=== PATIENT | male | born 1950 | race Caucasian/White ===

== ENCOUNTER 2020-04-21 08:20 | Outpatient (CLI) | payer MEDICARE, SELFPAY ==
[2020-04-21 08:49] LABS: Eosinophils Absolute Auto 0.2 K/mm3 (0-0.3); Eosinophils Percent Auto 5.7 % (0-4.4); Hemoglobin 13.1 g/dL (14.0-18.0); Immature Granulocyte Absolute 0.01 K/mm3 (0.00-0.031); Immature Granulocyte Percent A 0.2 % (0-0.5); Lymphocytes Percent Auto 39.6 % (18.3-44.2); Mean Corpuscular HGB Conc 33.6 g/dl (32-36); Mean Corpuscular Hemoglobin 29.9 pg (26-34); Mean Platelet Volume 9.1 fl (7.4-10.4); Monocytes Absolute Auto 0.5 K/mm3 (0.1-0.6); Monocytes Percent Auto 11.4 % (2.6-8.5); Neutrophils Absolute Auto 1.7 K/mm3 (1.3-6.7); Neutrophils Percent Auto 42.1 % (45.5-73.1); Platelet Count Result 180 k/mm3 (150-375); Red Blood Count 4.38 M/mm3 (4.6-6.20); Red Cell Distribution Width 12.9 % (11.5-14.5)
[2020-04-21 12:30] LABS: Alanine Aminotransferase 22 U/L (4-50); Albumin Level 4.8 g/dL (3.5-5.1); Alkaline Phosphatase 50 U/L (38-126); Anion Gap 16.7 mmol/L (7-16); Aspartate Amino Transferase 26 U/L (17-59); Bilirubin,Total 0.3 mg/dL (0.2-1.3); Blood Urea Nitrogen 24 mg/dL (9-20); Calcium 9.9 mg/dL (8.4-10.2); Carbon Dioxide 24 mmol/L (22-30); Chloride 102 mmol/L (98-107); Estimated Glomerular Filt Rate 60; Glucose 193 mg/dL (75-110); Potassium 4.7 mmol/L (3.4-5.0); Sodium 138 mmol/L (137-145)
[2020-04-21 12:37] LABS: Immunoglobulin A 156 mg/dL (70-400); Immunoglobulin G 1556 mg/dL (700-1600); Immunoglobulin M 56 mg/dL (40-230)
[2020-04-25 23:28] LABS: Kappa\\Lambda Light Chains 10.96 (0.26-1.65); Lambda Light Chain 8.5 mg/L (5.7-26.3)
[2020-04-26 02:17] LABS: Albumin 4.1 g/dL (3.8-4.8); Alpha 1 Globulin 0.3 g/dL (0.2-0.3); Alpha 2 Globulin 0.7 g/dL (0.5-0.9); Beta 1 Globulin 0.8 g/dL (0.4-0.6); Gamma Globulin 0.6 g/dL (0.8-1.7); Protein, Total 7.2 g/dL (6.1-8.1)
== END 2020-04-21 08:21 | disposition home or self-care (01) ==
PROVIDERS: PCP Internal Medicine; Visit Provider Internal Medicine Hematology & Oncology
DX: D72.9 Disorder of white blood cells, unspecified (principal)
CPT/HCPCS: 36415; 80053; 82784; 83883; 84155; 84165; 85025; 86334

== ENCOUNTER 2021-04-16 08:57 | Outpatient (CLI) | payer MEDICARE, SELFPAY ==
[2021-04-16 09:19] LABS: Basophils Percent Auto 0.7 % (0.2-1.2); Eosinophils Absolute Auto 0.3 K/mm3 (0-0.3); Eosinophils Percent Auto 7.2 % (0-4.4); Hematocrit 40.2 % (42.0-52.0); Hemoglobin 13.3 g/dL (14.0-18.0); Lymphocytes Absolute Auto 1.57 K/mm3 (0.9-3.2); Lymphocytes Percent Auto 36.7 % (18.3-44.2); Mean Corpuscular HGB Conc 33.1 g/dl (32-36); Mean Corpuscular Hemoglobin 29.1 pg (26-34); Mean Platelet Volume 9.1 fl (7.4-10.4); Monocytes Absolute Auto 0.5 K/mm3 (0.1-0.6); Neutrophils Absolute Auto 1.9 K/mm3 (1.3-6.7); Neutrophils Percent Auto 44.4 % (45.5-73.1); Platelet Count Result 206 k/mm3 (150-375); Red Blood Count 4.57 M/mm3 (4.6-6.20); Red Cell Distribution Width 12.9 % (11.5-14.5); White Blood Count 4.3 K/mm3 (4.5-10.0)
[2021-04-16 10:54] LABS: Alanine Aminotransferase 18 U/L (4-50); Albumin Level 4.7 g/dL (3.5-5.1); Alkaline Phosphatase 53 U/L (38-126); Anion Gap 10 mmol/L (8-16); Aspartate Amino Transferase 26 U/L (17-59); Bilirubin,Total 0.5 mg/dL (0.2-1.3); Blood Urea Nitrogen 21 mg/dL (9-20); Carbon Dioxide 25 mmol/L (22-30); Chloride 104 mmol/L (98-107); Estimated Glomerular Filt Rate 60; Glucose 142 mg/dL (65-110); Potassium 4.6 mmol/L (3.4-5.0); Sodium 139 mmol/L (137-145)
[2021-04-16 11:30] LABS: Immunoglobulin A 146 mg/dL (70-400); Immunoglobulin G 1573 mg/dL (700-1600); Immunoglobulin M 47 mg/dL (40-230)
[2021-04-19 23:03] LABS: Lambda Light Chain 8.4 mg/L (5.7-26.3)
[2021-04-24 03:21] LABS: Albumin 4.2 g/dL (3.8-4.8); Alpha 1 Globulin 0.3 g/dL (0.2-0.3); Alpha 2 Globulin 1.1 g/dL (0.5-0.9); Beta 1 Globulin 1.4 g/dL (0.4-0.6); Gamma Globulin 0.4 g/dL (0.8-1.7); Protein, Total 7.6 g/dL (6.1-8.1)
== END 2021-04-16 08:58 | disposition home or self-care (01) ==
LOC: ANHLAB 09:04
PROVIDERS: PCP Internal Medicine; Visit Provider Internal Medicine Hematology & Oncology
DX: D47.2 Monoclonal gammopathy (principal)
CPT/HCPCS: 36415; 80053; 82784; 83883; 84155; 84165; 85025; 86334

== ENCOUNTER 2021-12-09 09:25 | Emergency (ER) | payer MEDICARE, SELFPAY ==
[2021-12-09] VITALS (15 sets, daily range): BP systolic 115–137; BP diastolic 63–70; PULSE 59–77; RESP 13–20; TEMP 36.8; O2SAT 96–99
--- NOTE | ~2021-12-09 | XR_ITS ---
XR chest 1V portable 12/09/2021 10:01 Indication: Fever. Procedure: AP portable chest Comparison: Comparison to multiple prior studies sequentially, with oldest reviewed study dated 06/27. Findings: Heart size normal. No focal air space disease, pulmonary edema, pleural effusion or suspect ed pneumothorax. Impression: 1: No acute cardiopulmonary disease. Reviewed, dictated and finalized at location B. Impression: 1: No acute cardiopulmonary disease.
--- NOTE | 2021-12-09 09:47 | ED.FEVER ---
HPI - Fever General Chief Complaint: Fever Stated Complaint: Sepsis? Time Seen by Provider: 12/09/21 09:36 Source: patient Mode of arrival: ambulatory Limitations: no limitations History of Present Illness HPI Narrative: This is a 71 year old male that presents to the ER for fevers present over the last couple of days. Associated with achy low back pain and cloudy urine. Reports he self caths and has history of frequent urinary tract infections. He has had a right nephrectomy for history of renal cell carcinoma. Does report he had some diarrhea today. He is COVID and influenza vaccinated. Denies cough, congestion, sore throat, vomiting, or hematuria. Related Data Allergies Allergy/AdvReac Type Severity Reaction Status Date / Time aspirin Allergy Mild HIVES Verified 12/09/21 09:35 Review of Systems Review of Systems: CONSTITUTIONAL: Reports fever, chills ENT: Denies rhinorrhea, congestion, sore throat RESPIRATORY: Denies cough or dyspnea. GASTROINTESTINAL: Reports diarrhea. Denies abdominal pain, nausea, vomiting GENITOURINARY: Denies hematuria. SKIN: Denies rash MUSCULOSKELETAL: Reports myalgia. All systems reviewed & are unremarkable except as noted in HPI and below PMFSH Past Medical History Medical History (Updated 12/09/21 @ 11:31 by Sarah Rey PA-C) History of diabetes mellitus History of hyperlipidemia History of hypertension History of renal cell carcinoma Surgical History Surgical History (Updated 12/09/21 @ 09:51 by Sarah Rey PA-C) History of right nephrectomy Social History Social History (Updated 12/09/21 @ 09:51 by Sarah Rey PA-C) Smoking status: Never smoker Exam Narrative: GENERAL: Well-appearing, well-nourished, and in no acute distress. HEAD: Normocephalic, atraumatic. EYES: EOMI. ENT: Nares clear, no rhinorrhea or epistaxis. Mucous membranes moist. Oropharynx without tonsillar hypertrophy exudate or other lesions. CHEST: Clear to auscultation. No respiratory distress. No wheezes rales or rhonchi HEART: Regular rate and rhythm. No murmur heard. Normal peripheral pulses. ABDOMEN: Soft, nontender, nondistended, normal active bowel sounds. No CVA tenderness EXTREMITIES: Normal range of motion. No edema. SKIN: Warm, dry, no rash. NEURO: No focal deficits. Alert and oriented x3. PSYCH: Normal mood and affect Course Consultations Consultation #1: Spoke with the [place] with urology about patient and work-up. Patient will be given dose of Rocephin in the ED and sent home with oral antibiotics. Date: 12/09/21 Time: 11:31 Vital Signs Vital signs: Vital Signs Temperature 98.3 F 12/09/21 09:31 Pulse Rate 77 12/09/21 09:31 Respiratory Rate 19 12/09/21 09:31 Blood Pressure 137/64 12/09/21 09:31 Pulse Oximetry 99 12/09/21 09:31 Temperature 98.3 F 12/09/21 09:31 Pulse Rate 62 12/09/21 11:21 Respiratory Rate 18 12/09/21 11:21 Blood Pressure 117/64 12/09/21 11:21 Pulse Oximetry 98 12/09/21 11:21 MDM - Fever MDM Narrative Medical decision making narrative: Patient presents to the ER for fever and low back pain. History of frequent urinary tract infections. He self caths due to history of neurogenic bladder. He is afebrile in the ED and nontoxic-appearing. His vitals are stable. CBC with leukocytosis to 14.3. Also shows normocytic anemia with hemoglobin of 13.3. Metabolic panel without concerning findings. His lactic is not elevated. UA with evidence of infection. This will be sent for culture. Chest x-ray without acute cardiopulmonary abnormality. Spoke with the [place] with urology about patient and work-up. Patient will be given dose of Rocephin in the ED and sent home with oral antibiotics. Patient is stable and felt appropriate for further outpatient evaluation. He was given warnings to return to the ER Lab Data Attestation: I reviewed the patient's lab results. Result diagrams: 12/09/21 09:38
[2021-12-09 09:51] LABS: Basophils Absolute Auto 0.1 K/mm3 (0.0-0.1); Basophils Percent Auto 0.4 % (0.2-1.2); Eosinophils Percent Auto 0.1 % (0-4.4); Hematocrit 39.7 % (42.0-52.0); Hemoglobin 13.3 g/dL (14.0-18.0); Immature Granulocyte Absolute 0.08 K/mm3 (0.00-0.031); Immature Granulocyte Percent A 0.6 % (0-0.5); Lymphocytes Absolute Auto 1.72 K/mm3 (0.9-3.2); Mean Corpuscular HGB Conc 33.5 g/dl (32-36); Mean Corpuscular Hemoglobin 30.4 pg (26-34); Mean Corpuscular Volume 90.8 fl (80-100); Monocytes Absolute Auto 1.5 K/mm3 (0.1-0.6); Monocytes Percent Auto 10.6 % (2.6-8.5); Neutrophils Absolute Auto 10.9 K/mm3 (1.3-6.7); Neutrophils Percent Auto 76.3 % (45.5-73.1); Platelet Count Result 170 k/mm3 (150-375); Red Blood Count 4.37 M/mm3 (4.6-6.20); Red Cell Distribution Width 13.2 % (11.5-14.5); White Blood Count 14.3 K/mm3 (4.5-10.0)
[2021-12-09] MEDS: SODIUM CHLORIDE 0.9% IV 500 ML 999 ML IV CONT (09:52)
[2021-12-09 09:58] LABS: Alanine Aminotransferase 17 U/L (4-50); Albumin Level 4.5 g/dL (3.5-5.1); Alkaline Phosphatase 61 U/L (38-126); Anion Gap 9 mmol/L (8-16); Aspartate Amino Transferase 24 U/L (17-59); Blood Urea Nitrogen 18 mg/dL (9-20); Calcium 9.1 mg/dL (8.4-10.2); Carbon Dioxide 24 mmol/L (22-30); Chloride 104 mmol/L (98-107); Estimated CRCL calculation 56 ml/min; Estimated Glomerular Filt Rate 55; Glucose 249 mg/dL (65-110); Potassium 3.8 mmol/L (3.4-5.0); Sodium 137 mmol/L (137-145)
[2021-12-09 10:05] LABS: INR 1.1; Prothrombin Time 14.1 Seconds (11.1-14.7)
[2021-12-09 10:06] LABS: Partial Thromboplastin Time 29.7 SECONDS (22.3-36.8)
[2021-12-09 10:16] LABS: CRP 14.1 mg/dL (<1.0); Lipase 78 U/L (23-300)
[2021-12-09 10:25] LABS: Add Urine Microscopic? YES; Appearance Urine Cloudy (Clear); Bilirubin Urine Negative (Negative); Blood Urine 2+ (Negative); Color Urine Yellow (Yellow); Glucose Urine UA Negative (Negative); Ketones Urine Negative (Negative); Leukocyte Esterase Ur 3+ LEU/UL (Negative); Mucus Urine Rare /lpf; Nitrate Urine Negative (Negative); Protein Urine 2+ mg/dL (Negative); Specific Grav Ur 1.014 (1.001-1.035); Squamous Epithelial Cell Urine Occasional /hpf (Few); Urobilinogen Urine Negative mg/dL (<2.0); WBC Clumps Urine Present /HPF; WBC Urine >75 /hpf
[2021-12-09 10:25] LABS: Lactic Acid Reflex 1.5 mmol/L (0.7-2.1)
--- NOTE | 2021-12-09 11:09 | PC.NURSE ---
care assumed of pt at this time. Pt laying on bed, no distress noted. IVF infusing.
--- NOTE | 2021-12-09 11:09 | PC.NURSE ---
Patient report given to REYNA Major. All questions answered and care of patient transferred.
== END 2021-12-09 11:50 | disposition home or self-care (01) ==
PROVIDERS: Physician Assistant; Emergency Provider Emergency Medicine; PCP Internal Medicine
DX: N30.00 Acute cystitis without hematuria (principal); E11.9 Type 2 diabetes mellitus without complications; E78.5 Hyperlipidemia, unspecified; I10 Essential (primary) hypertension; N31.9 Neuromuscular dysfunction of bladder, unspecified; Z85.528 Personal history of other malignant neoplasm of kidney; Z90.5 Acquired absence of kidney
CPT/HCPCS: 36415; 51701; 71045; 80053; 81001; 83605; 83690; 85025; 85610; 85730; 86140; 87040; 87086; 87147; 87181; 87186; 96361; 96365; 99284; J0696; J7040

== ENCOUNTER 2022-04-13 08:32 | Outpatient (CLI) | payer MEDICARE, SELFPAY ==
[2022-04-13 08:58] LABS: Basophils Percent Auto 0.5 % (0.2-1.2); Eosinophils Absolute Auto 0.2 K/mm3 (0-0.3); Eosinophils Percent Auto 5.4 % (0-4.4); Hematocrit 39.6 % (42.0-52.0); Lymphocytes Absolute Auto 1.48 K/mm3 (0.9-3.2); Lymphocytes Percent Auto 36.2 % (18.3-44.2); Mean Corpuscular HGB Conc 32.8 g/dl (32-36); Mean Corpuscular Hemoglobin 29.6 pg (26-34); Mean Corpuscular Volume 90.2 fl (80-100); Mean Platelet Volume 9.9 fl (7.4-10.4); Monocytes Absolute Auto 0.5 K/mm3 (0.1-0.6); Monocytes Percent Auto 12.5 % (2.6-8.5); Neutrophils Absolute Auto 1.9 K/mm3 (1.3-6.7); Neutrophils Percent Auto 45.4 % (45.5-73.1); Platelet Count Result 169 k/mm3 (150-375); Red Blood Count 4.39 M/mm3 (4.6-6.20); Red Cell Distribution Width 13.2 % (11.5-14.5); White Blood Count 4.1 K/mm3 (4.5-10.0)
[2022-04-13 13:23] LABS: Alanine Aminotransferase 24 U/L (6-50); Albumin Level 4.5 g/dL (3.5-5.1); Alkaline Phosphatase 53 U/L (38-126); Anion Gap 10 mmol/L (8-16); Aspartate Amino Transferase 26 U/L (17-59); Bilirubin,Total 0.4 mg/dL (0.2-1.3); Blood Urea Nitrogen 26 mg/dL (9-20); Calcium 9.7 mg/dL (8.4-10.2); Carbon Dioxide 25 mmol/L (22-30); Chloride 102 mmol/L (98-107); Estimated Glomerular Filt Rate 60; Glucose 243 mg/dL (65-110); Potassium 4.3 mmol/L (3.4-5.0); Sodium 137 mmol/L (137-145)
[2022-04-13 13:30] LABS: Immunoglobulin A 114 mg/dL (70-400); Immunoglobulin G 1504 mg/dL (700-1600); Immunoglobulin M 47 mg/dL (40-230)
[2022-04-17 08:01] LABS: Kappa\\Lambda Light Chains 9.79 (0.26-1.65); Lambda Light Chain 9.9 mg/L (5.7-26.3)
[2022-04-20 18:44] LABS: Abnormal Protein Band 1 1.2 g/dL; Albumin 4.4 g/dL (3.8-4.8); Alpha 1 Globulin 0.3 g/dL (0.2-0.3); Alpha 2 Globulin 0.9 g/dL (0.5-0.9); Beta 1 Globulin 1.3 g/dL (0.4-0.6); Gamma Globulin 0.7 g/dL (0.8-1.7); Protein, Total 7.5 g/dL (6.1-8.1)
== END 2022-04-13 08:33 | disposition home or self-care (01) ==
PROVIDERS: PCP Internal Medicine; Visit Provider Internal Medicine Hematology & Oncology
DX: D47.2 Monoclonal gammopathy (principal)
CPT/HCPCS: 36415; 80053; 82784; 83883; 84155; 84165; 85025

== ENCOUNTER 2022-05-18 00:03 | Day surgery (SDC) | payer MEDICARE, SELFPAY ==
[2022-05-04 13:06] VITALS: BMI 24.6
--- NOTE | 2022-05-17 17:24 | PM.HPGS ---
History of Present Illness History of Present Illness Consent: Risks, benefits, and alternatives have been discussed and questions answered. Patient agrees to proceed with procedure. Chief complaint: hx colon polyps, family hx of colon ca Narrative: Calin Lerma is a 72 year old male Referred for colon cancer screening. He has a family history of colon cancer. He himself has had polyps removed on 3 separate occasions. Review of Systems Review of Systems: All systems reviewed & are unremarkable except as noted in HPI and below PMFSH Past Medical History Medical History History of diabetes mellitus History of hyperlipidemia History of hypertension History of renal cell carcinoma Surgical History Surgical History History of right nephrectomy Social History Social History Smoking packs per day: 1 Smoking cigarettes per day: 20.0 Years smoked: 30 Smoking pack-years: 30.00 Smoking status: Former smoker Tobacco type: cigarettes Alcohol intake: never Substance use type: does not use Living arrangements: with family Spiritual care concerns: No Meds Home Medications and Allergies Home Medications Medication Instructions Recorded Confirmed Type amlodipine 5 mg tablet 5 mg PO DAILY 05/04/22 05/18/22 History atorvastatin 40 mg tablet 40 mg PO DAILY 05/04/22 05/18/22 History cephalexin 250 mg capsule 250 mg PO DAILY 05/04/22 05/18/22 History hydrocodone 5 mg-acetaminophen 325 1 tablet PO TID 05/04/22 05/18/22 History mg tablet lactobacillus combination no.4 3 3,000 mmu cells PO DAILY 05/04/22 05/18/22 History billion cell capsule (Probiotic) metformin 1,000 mg tablet 500 mg PO BID 05/04/22 05/18/22 History nebivolol 5 mg tablet 2.5 mg PO DAILY 05/04/22 05/18/22 History nifedipine 30 mg tablet,extended 30 mg PO DAILY 05/04/22 05/18/22 History release Allergies Allergy/AdvReac Type Severity Reaction Status Date / Time aspirin Allergy Mild HIVES Verified 05/18/22 08:16 eggplant Allergy Hives Verified 05/18/22 08:16 Exam Resp: Auscultation: clear to auscultation bilaterally Cardio: Rate: regular rate Rhythm: regular rhythm GI: GI Palp: Yes Soft to palpation and No Tenderness to palpation present (GI) Assessment and Plan Assessment and plan (1) Colon cancer screening: Code(s): Z12.11 - Encounter for screening for malignant neoplasm of colon Status: Acute Assessment and Plan: Colonoscopy with possible biopsy or polypectomy or cautery or injection of substances.
[2022-05-18 08:16] LABS: Glucose Point of Care 129 mg/dl (65-105)
[2022-05-18 08:18] VITALS: BP 125/76; PULSE 60; RESP 18; TEMP 36.4; O2SAT 100
[2022-05-18] MEDS: LACTATED RINGERS 1,000 ML 150 ML IV CONT (08:27)
--- NOTE | 2022-05-18 08:53 | WPDANESEPPF ---
Anes - Initial Pre Proc Eval Procedure: Operation Date: 05/18/22 09:30 Proposed Procedures p Screening Colonoscopy - Santos Olivas MD Date/Time: 05/18/22 08:53 Surgeon: Santos Olivas MD Pre Op Diagnosis: hx colon polyps, family hx of colon ca Patient Data Age: 72 Gender: M Height: 1.88 m Weight: 82.6 kg Last Vital Signs Temp 97.6 F 05/18/22 08:18 Pulse 60 05/18/22 08:18 Resp 18 05/18/22 08:18 BP 125/76 05/18/22 08:18 Pulse Ox 100 05/18/22 08:18 O2 Del Method Room Air 05/18/22 08:18 Allergies Allergy/AdvReac Type Severity Reaction Status Date / Time aspirin Allergy Mild HIVES Verified 05/18/22 08:16 eggplant Allergy Hives Verified 05/18/22 08:16 Home Medications Medication Instructions Recorded Confirmed Type amlodipine 5 mg tablet 5 mg PO DAILY 05/04/22 05/18/22 History atorvastatin 40 mg tablet 40 mg PO DAILY 05/04/22 05/18/22 History cephalexin 250 mg capsule 250 mg PO DAILY 05/04/22 05/18/22 History hydrocodone 5 mg-acetaminophen 325 1 tablet PO TID 05/04/22 05/18/22 History mg tablet lactobacillus combination no.4 3 3,000 mmu cells PO DAILY 05/04/22 05/18/22 History billion cell capsule (Probiotic) metformin 1,000 mg tablet 500 mg PO BID 05/04/22 05/18/22 History nebivolol 5 mg tablet 2.5 mg PO DAILY 05/04/22 05/18/22 History nifedipine 30 mg tablet,extended 30 mg PO DAILY 05/04/22 05/18/22 History release Laboratory Tests 05/18/22 08:13 POC Capillary Glucose 129 mg/dl H mg/dl (65-105) Patient hx anesthesia problems: none Family hx anesthesia problems: none Results Review: All pre-operative results and documents have been reviewed as part of the pre-operative evaluation. [facility] Past Medical History Medical History (Updated 05/17/22 @ 17:25 by Santos Olivas MD) History of diabetes mellitus History of hyperlipidemia History of hypertension History of renal cell carcinoma Surgical History Surgical History (Updated 12/09/21 @ 09:51 by Sarah Rey PA-C) History of right nephrectomy Social History Social History (Updated 12/09/21 @ 09:51 by Sarah Rey PA-C) Smoking packs per day: 1 Smoking cigarettes per day: 20.0 Years smoked: 30 Smoking pack-years: 30.00 Smoking status: Former smoker Tobacco type: cigarettes Alcohol intake: never Substance use type: does not use Living arrangements: with family Spiritual care concerns: No Anes - Eval Final PreProcedure Day of Procedure 05/18/22 08:53 Patient weight: normal Heart: regular rate and rhythm Lungs: clear to auscultation Airway: Mallampati scale class II Neurological: alert and oriented Last oral intake: >/= 8 hours ASA classification: III Emergent: no Anesthetic plan: proceed Anesthesia type and monitoring: general GIVS and standard monitoring Results Review: All pre-operative results and documents have been reviewed as part of the pre-operative evaluation. Informed Consent: The patient's anesthetic plan and its attendant risks and benefits were discussed with the patient/family/POA. Questions were solicited and answers provided to the satisfaction of the patient/family/POA.
[2022-05-18 09:43] VITALS: BP 104/64; PULSE 54; RESP 19; O2SAT 100
[2022-05-18 09:53] VITALS: BP 111/63; PULSE 55; RESP 17; O2SAT 100
[2022-05-18 10:04] VITALS: BP 136/64; PULSE 52; RESP 20; O2SAT 100
== END 2022-05-18 10:12 | disposition home or self-care (01) ==
PROVIDERS: PCP Internal Medicine; Visit Provider Internal Medicine Gastroenterology
PROC: 0DJD8ZZ Inspection of Lower Intestinal Tract, Via Natural or Artificial Opening Endoscopic (ICD-10-PCS; CPT 45378; principal; 2022-05-18 09:30)
DX: Z12.11 Encounter for screening for malignant neoplasm of colon (principal); Z86.010 Personal history of colon polyps; Z80.0 Family history of malignant neoplasm of digestive organs; K57.30 Diverticulosis of large intestine without perforation or abscess without bleeding; Z79.84 Long term (current) use of oral hypoglycemic drugs; E11.9 Type 2 diabetes mellitus without complications; I10 Essential (primary) hypertension; E78.5 Hyperlipidemia, unspecified; Z85.53 Personal history of malignant neoplasm of renal pelvis; Z90.5 Acquired absence of kidney; Z87.891 Personal history of nicotine dependence
CPT/HCPCS: G0121; 82948; J2001; J2704; J7120

== ENCOUNTER 2023-04-10 08:41 | Outpatient (CLI) | payer MEDICARE, SELFPAY ==
[2023-04-10 08:53] LABS: Basophils Percent Auto 0.7 % (0.2-1.2); Eosinophils Absolute Auto 0.2 K/mm3 (0-0.3); Eosinophils Percent Auto 4.8 % (0-4.4); Hematocrit 39.2 % (42.0-52.0); Hemoglobin 13.2 g/dL (14.0-18.0); Lymphocytes Absolute Auto 1.66 K/mm3 (0.9-3.2); Lymphocytes Percent Auto 37.7 % (18.3-44.2); Mean Corpuscular HGB Conc 33.7 g/dl (32-36); Mean Corpuscular Hemoglobin 29.9 pg (26-34); Mean Corpuscular Volume 88.9 fl (80-100); Mean Platelet Volume 9.3 fl (7.4-10.4); Monocytes Absolute Auto 0.6 K/mm3 (0.1-0.6); Monocytes Percent Auto 12.5 % (2.6-8.5); Neutrophils Percent Auto 44.3 % (45.5-73.1); Platelet Count Result 161 k/mm3 (150-375); Red Blood Count 4.41 M/mm3 (4.6-6.20); Red Cell Distribution Width 12.9 % (11.5-14.5); White Blood Count 4.4 K/mm3 (4.5-10.0)
[2023-04-10 12:30] LABS: Immunoglobulin A 122 mg/dL (70-400); Immunoglobulin G 1413 mg/dL (700-1600); Immunoglobulin M 42 mg/dL (40-230)
[2023-04-10 12:42] LABS: Alanine Aminotransferase 25 U/L (6-50); Albumin Level 4.6 g/dL (3.5-5.1); Alkaline Phosphatase 51 U/L (38-126); Anion Gap 9 mmol/L (8-16); Aspartate Amino Transferase 27 U/L (17-59); Bilirubin,Total 0.5 mg/dL (0.2-1.3); Blood Urea Nitrogen 22 mg/dL (9-20); Calcium 9.7 mg/dL (8.4-10.2); Carbon Dioxide 28 mmol/L (22-30); Chloride 101 mmol/L (98-107); Estimated Glomerular Filt Rate > 60; Glucose 140 mg/dL (65-110); Potassium 4.3 mmol/L (3.4-5.0); Sodium 138 mmol/L (137-145)
[2023-04-13 11:59] LABS: Abnormal Protein Band 1 1.1 g/dL; Albumin 4.2 g/dL (3.8-4.8); Alpha 1 Globulin 0.3 g/dL (0.2-0.3); Alpha 2 Globulin 0.8 g/dL (0.5-0.9); Beta 1 Globulin 1.3 g/dL (0.4-0.6); Gamma Globulin 0.6 g/dL (0.8-1.7); Protein, Total 7.5 g/dL (6.1-8.1)
[2023-04-14 20:42] LABS: Kappa\\Lambda Light Chains 11.06 (0.26-1.65); Lambda Light Chain 10.5 mg/L (5.7-26.3)
== END 2023-04-10 08:42 | disposition home or self-care (01) ==
LOC: ANHLAB 08:43
PROVIDERS: PCP Internal Medicine; Visit Provider Internal Medicine Hematology & Oncology
DX: D47.2 Monoclonal gammopathy (principal)
CPT/HCPCS: 36415; 80053; 82784; 83883; 84155; 84165; 85025

== ENCOUNTER 2023-10-12 09:26 | Outpatient (CLI) | payer MEDICARE, SELFPAY ==
[2023-10-12 12:56] LABS: Hemoglobin A1C 7.2 % (<5.7)
[2023-10-12 13:35] LABS: Alanine Aminotransferase 26 U/L (6-50); Albumin Level 4.3 g/dL (3.5-5.1); Alkaline Phosphatase 50 U/L (38-126); Anion Gap 8 mmol/L (8-16); Aspartate Amino Transferase 38 U/L (17-59); Bilirubin,Total 0.6 mg/dL (0.2-1.3); Blood Urea Nitrogen 24 mg/dL (9-20); Calcium 9.9 mg/dL (8.4-10.2); Carbon Dioxide 27 mmol/L (22-30); Chloride 103 mmol/L (98-107); Cholesterol 137 mg/dL (0-200); Estimated Glomerular Filt Rate 60; Glucose 125 mg/dL (65-110); HDL Direct 46 mg/dL; Potassium 4.2 mmol/L (3.4-5.0); Sodium 138 mmol/L (137-145); Triglycerides 155 mg/dL (<150)
[2023-10-12 13:44] LABS: Albumin Level 4.3 g/dL (3.5-5.1); Anion Gap 11 mmol/L (8-16); Blood Urea Nitrogen 24 mg/dL (9-20); Calcium 9.9 mg/dL (8.4-10.2); Carbon Dioxide 27 mmol/L (22-30); Chloride 102 mmol/L (98-107); Estimated Glomerular Filt Rate 60; Glucose 123 mg/dL (65-110); Phosphorus 3.9 mg/dL (2.5-4.5); Potassium 4.2 mmol/L (3.4-5.0); Sodium 140 mmol/L (137-145)
[2023-10-12 13:46] LABS: LDL Cholesterol Direct 56 mg/dL
[2023-10-12 16:08] LABS: Creatinine Urine 47.4 mg/dL; Total Protein Urine Random 35 mg/dL; Ur Ttl Prot Creatinine Ratio 0.74 mg/mg (0-0.20)
[2023-10-12 16:13] LABS: Creatinine Urine 46.8 mg/dL
[2023-10-12 16:18] LABS: MALB Creatinine Ratio 276.3 mg/g (0-30); Microalbumin Urine Random 129.3 mg/L (0-16.7)
== END 2023-10-12 09:27 | disposition home or self-care (01) ==
PROVIDERS: Internal Medicine Nephrology; PCP Family Medicine; Visit Provider Family Medicine
DX: E11.22 Type 2 diabetes mellitus with diabetic chronic kidney disease (principal); N18.2 Chronic kidney disease, stage 2 (mild); E53.8 Deficiency of other specified B group vitamins; I12.9 Hypertensive chronic kidney disease with stage 1 through stage 4 chronic kidney disease, or unspecified chronic kidney disease; Z90.5 Acquired absence of kidney
CPT/HCPCS: 36415; 80053; 80061; 80069; 82043; 82570; 82607; 83036; 84156

== ENCOUNTER 2024-01-17 11:48 | Outpatient (CLI) | payer MEDICARE, SELFPAY ==
[2024-01-17 20:23] LABS: Alanine Aminotransferase 20 U/L (6-50); Aspartate Amino Transferase 32 U/L (17-59)
[2024-01-17 20:29] LABS: Alanine Aminotransferase 19 U/L (6-50); Albumin Level 4.5 g/dL (3.5-5.1); Alkaline Phosphatase 49 U/L (38-126); Anion Gap 8 mmol/L (4-12); Aspartate Amino Transferase 34 U/L (17-59); Bilirubin,Total 0.6 mg/dL (0.2-1.3); Blood Urea Nitrogen 20 mg/dL (9-20); Calcium 10.2 mg/dL (8.4-10.2); Carbon Dioxide 27 mmol/L (22-30); Chloride 105 mmol/L (98-107); Cholesterol 121 mg/dL (0-200); Estimated Glomerular Filt Rate > 60; Glucose 122 mg/dL (65-110); HDL Direct 48 mg/dL; Potassium 4.4 mmol/L (3.4-5.0); Sodium 140 mmol/L (137-145); Triglycerides 104 mg/dL (<150)
[2024-01-17 20:40] LABS: LDL Cholesterol Direct 52 mg/dL
[2024-01-17 20:56] LABS: Creatinine Urine 41.7 mg/dL
[2024-01-17 21:04] LABS: Hemoglobin A1C 5.6 % (<5.7)
[2024-01-17 21:27] LABS: MALB Creatinine Ratio 682.5 mg/g (0-30); Microalbumin Urine Random 284.6 mg/L (0-16.7)
== END 2024-01-17 11:49 | disposition home or self-care (01) ==
PROVIDERS: PCP Family Medicine
DX: E11.22 Type 2 diabetes mellitus with diabetic chronic kidney disease (principal); N18.2 Chronic kidney disease, stage 2 (mild)
CPT/HCPCS: 36415; 80053; 80061; 82043; 82607; 83036; 84450; 84460

== ENCOUNTER 2024-04-15 09:03 | Outpatient (CLI) | payer MEDICARE, SELFPAY ==
[2024-04-15 09:27] LABS: Basophils Percent Auto 0.4 % (0.2-1.2); Eosinophils Absolute Auto 0.2 K/mm3 (0-0.3); Eosinophils Percent Auto 4.3 % (0-4.4); Hematocrit 38.9 % (42.0-52.0); Hemoglobin 12.9 g/dL (14.0-18.0); Immature Granulocyte Absolute 0.01 K/mm3 (0.00-0.031); Immature Granulocyte Percent A 0.2 % (0-0.5); Lymphocytes Absolute Auto 1.56 K/mm3 (0.9-3.2); Mean Corpuscular HGB Conc 33.2 g/dl (32-36); Mean Corpuscular Hemoglobin 29.9 pg (26-34); Mean Corpuscular Volume 90.3 fl (80-100); Mean Platelet Volume 8.7 fl (7.4-10.4); Monocytes Absolute Auto 0.5 K/mm3 (0.1-0.6); Neutrophils Absolute Auto 2.2 K/mm3 (1.3-6.7); Neutrophils Percent Auto 49.1 % (45.5-73.1); Platelet Count Result 214 k/mm3 (150-375); Red Blood Count 4.31 M/mm3 (4.6-6.20); Red Cell Distribution Width 13.3 % (11.5-14.5); White Blood Count 4.5 K/mm3 (4.5-10.0)
[2024-04-15 12:44] LABS: Alanine Aminotransferase 21 U/L (6-50); Albumin Level 4.4 g/dL (3.5-5.1); Alkaline Phosphatase 43 U/L (38-126); Anion Gap 11 mmol/L (4-12); Aspartate Amino Transferase 26 U/L (17-59); Bilirubin,Total 0.4 mg/dL (0.2-1.3); Blood Urea Nitrogen 23 mg/dL (9-20); Calcium 9.5 mg/dL (8.4-10.2); Carbon Dioxide 26 mmol/L (22-30); Chloride 101 mmol/L (98-107); Estimated Glomerular Filt Rate > 60; Glucose 152 mg/dL (65-110); Sodium 138 mmol/L (137-145)
[2024-04-15 13:37] LABS: Immunoglobulin A 115 mg/dL (70-400); Immunoglobulin M 43 mg/dL (40-230)
[2024-04-15 14:17] LABS: Immunoglobulin G 1583 mg/dL (700-1600)
[2024-04-16 09:54] LABS: Protein, Total 7.2 g/dL (6.1-8.1)
[2024-04-16 12:22] LABS: Kappa\\Lambda Light Chains 12.54 (0.26-1.65); Lambda Light Chain 9.2 mg/L (5.7-26.3)
[2024-04-17 12:13] LABS: Abnormal Protein Band 1 0.6 g/dL (NONE DETECTED); Abnormal Protein Band 2 0.7 g/dL (NONE DETECTED); Albumin 3.9 g/dL (3.8-4.8); Alpha 1 Globulin 0.3 g/dL (0.2-0.3); Alpha 2 Globulin 0.7 g/dL (0.5-0.9); Beta 1 Globulin 0.9 g/dL (0.4-0.6); Gamma Globulin 0.6 g/dL (0.8-1.7)
== END 2024-04-15 09:04 | disposition home or self-care (01) ==
PROVIDERS: PCP Family Medicine; Visit Provider Internal Medicine Hematology & Oncology
DX: D47.2 Monoclonal gammopathy (principal)
CPT/HCPCS: 36415; 80053; 82784; 83883; 84155; 84165; 85025

== ENCOUNTER 2024-04-17 11:39 | Outpatient (CLI) | payer MEDICARE, SELFPAY ==
[2024-04-17 20:12] LABS: Albumin Level 4.4 g/dL (3.5-5.1); Anion Gap 10 mmol/L (4-12); Blood Urea Nitrogen 20 mg/dL (9-20); Calcium 9.7 mg/dL (8.4-10.2); Carbon Dioxide 28 mmol/L (22-30); Chloride 99 mmol/L (98-107); Estimated Glomerular Filt Rate 60; Glucose 113 mg/dL (65-110); Phosphorus 4.1 mg/dL (2.5-4.5); Potassium 4.3 mmol/L (3.4-5.0); Sodium 137 mmol/L (137-145)
[2024-04-17 20:22] LABS: Alanine Aminotransferase 22 U/L (6-50); Aspartate Amino Transferase 41 U/L (17-59)
[2024-04-17 20:47] LABS: Creatinine Urine 76.1 mg/dL; Total Protein Urine Random 85 mg/dL; Ur Ttl Prot Creatinine Ratio 1.12 mg/mg (0-0.20)
== END 2024-04-17 11:40 | disposition home or self-care (01) ==
LOC: ANHGOSHLAB 11:41
PROVIDERS: Internal Medicine Nephrology; PCP Family Medicine; Visit Provider Podiatrist Foot & Ankle Surgery
DX: E11.22 Type 2 diabetes mellitus with diabetic chronic kidney disease (principal); I12.9 Hypertensive chronic kidney disease with stage 1 through stage 4 chronic kidney disease, or unspecified chronic kidney disease; N18.2 Chronic kidney disease, stage 2 (mild); Z90.5 Acquired absence of kidney; B35.1 Tinea unguium
CPT/HCPCS: 36415; 80069; 82570; 84156; 84450; 84460

== ENCOUNTER 2024-05-15 10:11 | Outpatient (CLI) | payer MEDICARE, SELFPAY | END 2024-05-15 10:12 | disposition home or self-care (01) | LOC: ANHGOSHLAB 10:12 | PROVIDERS: PCP Family Medicine; Visit Provider Student in an Organized Health Care Education/Training Program | DX: Z12.5 Encounter for screening for malignant neoplasm of prostate (principal) | CPT/HCPCS: 36415; 84153; G0103 ==

== ENCOUNTER 2024-07-18 09:13 | Outpatient (CLI) | payer MEDICARE, SELFPAY ==
[2024-07-18 19:31] LABS: Alanine Aminotransferase 19 U/L (6-50); Aspartate Amino Transferase 33 U/L (17-59)
== END 2024-07-18 09:14 | disposition home or self-care (01) ==
LOC: ANHGOSHLAB 09:16
PROVIDERS: PCP Family Medicine; Visit Provider Podiatrist Foot & Ankle Surgery
DX: B35.1 Tinea unguium (principal)
CPT/HCPCS: 36415; 84450; 84460

== ENCOUNTER 2024-08-19 07:57 | Outpatient (CLI) | payer MEDICARE, SELFPAY ==
[2024-08-19 11:36] LABS: Alanine Aminotransferase 18 U/L (6-50); Albumin Level 4.5 g/dL (3.5-5.1); Alkaline Phosphatase 42 U/L (38-126); Anion Gap 7 mmol/L (4-12); Aspartate Amino Transferase 43 U/L (17-59); Bilirubin,Total 0.6 mg/dL (0.2-1.3); Blood Urea Nitrogen 26 mg/dL (9-20); Calcium 9.9 mg/dL (8.4-10.2); Carbon Dioxide 28 mmol/L (22-30); Chloride 104 mmol/L (98-107); Cholesterol 275 mg/dL (0-200); Estimated Glomerular Filt Rate 54; Glucose 114 mg/dL (65-110); HDL Direct 61 mg/dL; Sodium 139 mmol/L (137-145); Triglycerides 159 mg/dL (<150)
[2024-08-19 11:47] LABS: LDL Cholesterol Direct 132 mg/dL
[2024-08-19 11:56] LABS: Creatinine Urine 34.6 mg/dL
[2024-08-19 11:58] LABS: Hemoglobin A1C 6.3 % (<5.7)
== END 2024-08-19 07:58 | disposition home or self-care (01) ==
PROVIDERS: PCP Family Medicine; Visit Provider Family Medicine
DX: E11.22 Type 2 diabetes mellitus with diabetic chronic kidney disease (principal); N18.2 Chronic kidney disease, stage 2 (mild)
CPT/HCPCS: 36415; 80053; 80061; 82043; 82607; 83036

== ENCOUNTER 2024-11-07 10:16 | Outpatient (CLI) | payer MEDICARE, SELFPAY ==
--- OUTSIDE RECORDS SUMMARY | 2024-11-07 10:35 | XMS_ITS | Continuity of Care Document ---
Author Organization [facility] Address [address] [facility] [address] [place] [address] Phone Care Team Providers Care Liquor Establishment Manager Name Role Phone Balderas OD, Dariel Unavailable Unavailable Procedures Procedure Date Office/outpatient Visit, Est Office/outpatient Visit, Est Office/outpatient Visit, [facility] Advance Directives Directive Yes / No Effective Date File Name No Information Encounters Encounter Description Practice Location Reason(s) For Visit Diagnoses Date Provider Providers Copied on Encounter [place] [facility] [place] [address] [place] [address] [address], [place], [place], [address], tel:[phone] [facility] No Information Aug-0 9-200 7 Balderas OD Dariel. [address], [place], [place], [facility], . tel:[phone] [place] [facility] [place] [address] [place] [address] [address], [place], [place], [address], [place] tel:[phone] [facility] No Information Aug-0 2-200 7 Balderas OD Dariel. [address] [facility] , [address], [place], [place], [facility], . tel:[phone] Office/outpat ient Visit, [facility], [address], [place], [place], [address], tel:[phone] [facility] No Information Xavi-3 1-200 7 Balderas OD Dariel. [address] , [address], [place], [address], [place]. tel:[phone] Family History Family Member Type Diagnosis Age [...]
--- OUTSIDE RECORDS SUMMARY | 2024-11-07 10:35 | XMS_ITS | Clinical Summary ---
Author Organization [facility] Address [address] [place] [address] Phone Care Team Providers Care Die Mechanic Name Role Phone Jenna Alfaro MD Primary Care Provider [phone] Allergies Active Allergy Reactions Criticality Noted Date Comments Aspirin Rash,Hives High 12/30/2018 Medications amLODIPine (NORVASC) 5 mg tablet Take 5 mg by mouth 2 times daily. Active nebivolol (BYSTOLIC) 2.5 mg Tablet Take 2.5 mg by mouth daily. Active metFORMIN (GLUCOPHAGE) 500 mg tablet Take 500 mg by mouth 2 times daily with meals. Active cholecalciferol, vitamin D3, 5,000 unit Take 5,000 Units by mouth daily. Active lactobacillus combination no.4 (SENIOR PROBIOTIC ORAL) Take by mouth. Active cyanocobalamin, vitamin B-12, (VITAMIN B-12 INJECTION) by Injection route every 30 days. Active Lancing Device with Lancets (Accu-Chek FastClix Lancing Dev) Kit Accu-Chek FastClix Lancing Device kit U TO TEST BS BID Active blood sugar diagnostic (Accu-Chek SmartView Test Strip) Strip Accu-Chek SmartView Test Strips USE TO TEST BLOOD GLUCOSE ONCE DAILY Active atorvastatin (LIPITOR) 40 mg tablet Take 40 mg by mouth daily. Active NIFEdipine (ADALAT CC) 30 mg Extended Release tablet Take 30 mg by mouth daily. Active cephALEXin (KEFLEX) 250 mg capsule Take 250 mg by mouth 4 times daily. 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 Encounters Date Type Department Care Team Description 10/23/2024 External Device Data [facility] ABSTRACTION Provider, Abstract 10/17/2024 External Device Data [facility] ABSTRACTION Provider, Abstract from Last 3 Months Family History Medical History Relation Name Comments Cancer Mother Colon Cancer Mother Relation Name Status Comments Brother 1 Alive Brother 2 Alive Father Mother Sister 1 Alive Sister 2 Alive Sister 3 Alive Social History Tobacco Use Types Packs/Day Years Used Date Smoking Tobacco: Former Cigarettes 1 40 1 - 07/23/2004 Smokeless Tobacco: Never Tobacco Cessation:Counseling Given: Not Answered Alcohol Use Standard Drinks/Week Comments Never 0 (1 standard drink = 0.6 oz pur e alcohol) Sex and Gender Information Value Date Recorded Sex Assigned at Not on file Legal Sex Male 1:46 PM CDT Gender Identity Not on file Sexual Orientation Not on file Last Filed Vital Signs Vital Sign Reading Time Taken Comments Blood Pressure 140/86 04/25/2024 9:31 AM CDT Pulse 60 04/25/2024 9:31 AM CDT Temperature 36.7 C (98 F) 04/25/2024 9:31 AM CDT Respiratory Rate 16 04/25/2024 9:31 AM CDT Oxygen Saturation 97% 04/25/2024 9:31 AM CDT Inhaled Oxygen Concentration - - Weight 76.7 kg (169 lb) 04/25/2024 9:31 AM CDT Height 188 cm (6' 2 ) 04/26/2022 9:45 AM CDT Body Mass Index 21.7 04/26/2022 9:45 AM CDT Plan of Treatment Upcoming Encounters Date Type Department Care Team (Late st Contact Info) Description 04/25/2025 8:45 AM CDT Office Visit [facility] Oncology and Hematology - Jimmie [address] [place] [address] Aureliano Parks MD [address] [facility] [address] [place] [address] Health Maintenance Due Date Last Done Comments DIABETES ANNUAL FOOT EXAM 02/25/1970 DIABETES ANNUAL RETINAL EXAM 02/25/1970 DIABETES MICROALBUMIN ANNUAL SCREEN 02/25/1970 LDL CHOLESTEROL ANNUAL 02/25/1970 FIT-DNA Q 3 years 02/25/1997 FIT/FOBT Q 1 year 02/25/1997 Flex Sig/CT Colonography Q 5 years 02/25/1997 RSV VACCINE (60+ or ) (1 - Risk 60-74 years 1-dose series) 2012 Abdominal Aortic Aneurysm (A AA) Screening 02/25/2017 INFLUENZA VACCINE (#1) 2024 3, 07/05/2022, 07/20/2021, Additional history exists DIABETES HBA1C Q 6 MONTHS 07/18/20242023, 10/12/2023, 04/17/2023, Additional history exists DTAP/TDAP/TD VACCINES (2 - T d or Tdap) 03/17/2031 03/17/2021 COLORECTAL SCREENING 05/18/2032 05/18/2022, 05/18/2022, 04/24/2017, Additional history exists Colorectal Cancer Screening 05/18/2032 ZOSTER VACCINE Completed 05/17/2021, 0809/2020, 03/17/2021, Additional history exists PNEUMOCOCCAL VACCINE 65+ YEARS Completed 0 03/04/2022, 06/28/2020, 10/02/2018, Additional history exists Insurance MEDICARE PART A AND B Care Teams Die Mechanic Relationship Specialty Start Date End Date Jenna Alfaro MD [facility] [place] [facility] [place] [address] [place] [phone] PCP - General Family Practice 04/25/24
--- OUTSIDE RECORDS SUMMARY | 2024-11-07 10:35 | XMS_ITS | Clinical Summary ---
Author Organization [facility] Address [address] [place] [address] Care Team Providers Care Repair Armature Winder Name Role Phone Unavailable Primary Care Provider Unavailabl e Social History Tobacco Use Types Packs/Day Years Used Date Smoking Tobacco: Never Assessed Comments Unknown Sex and Gender Information Value Date Recorded Sex Assigned at Not on file Legal Sex Female 4:13 PM CDT Gender Identity Not on file Sexual Orientation Not on file Plan of Treatment Health Maintenance Due Date Last Done Comments Colorectal Cancer Screening Colonoscopy (10 Years) 1950 Hepatitis C 03/07/1970 DTaP, Tdap and Td Vaccines ( 1 - Tdap) 03/07/1971 Mammogram Screening 03/07/1992 Zoster Vaccines (1 of 2) 03/07/2002 Dexa Scan (General) 03/07/2017 Pneumococcal Vaccine: 65+ Ye ars (1 of 1 - PCV) 03/07/2017 COVID-19 Vaccine (2023-2 5 season) 2024 Influenza Adult (#1) 2024 RSV Immunization or 60+ Years (1 - 1-dose 75+ series) 03/07/2027 Meningococcal B Vaccine Aged Out No l onger eligible based on patient's age to complete this topic Meningococcal Vaccine Aged Out No rachel elisa eligible based on patient's age to complete this topic RSV Immunizations Under 20 Months Aged Out No longer eligible based on patient's age to complete this topic
--- OUTSIDE RECORDS SUMMARY | 2024-11-07 10:35 | XMS_ITS | Referral Summary ---
Author Organization [facility] Address [address] [place] [address] Care Team Providers Care Academic Affairs Director Name Role Phone Unavailable Primary Care Provider Unavailabl e Source Comments [facility],non-owned Affiliates and Associated Physician Practices is amultiple site organization consisting of ambulatory clinics and hospital sitesin [place], [place], [place] and [place]. This disclosure is being madepursuant to the Care Everywhere program and may not contain all information available regarding this patient. Last updated 18.[facility] [employer] Social History Tobacco Use Types Packs/Day Years Used Date Smoking Tobacco: Never Assessed Sex and Gender Information Value Date Recorded Sex Assigned at Not on file Gender Identity Not on file Sexual Orientation Not on file Plan of Treatment Not on file
--- OUTSIDE RECORDS SUMMARY | 2024-11-07 10:35 | XMS_ITS | Clinical Summary ---
Author Organization [facility] Address [address], [place] [address] Phone Care Team Providers Care Academic Affairs Coordinator Name Role Phone Silvino Pace MD Primary Care Provider [phone] Allergies Active Allergy Reactions Criticality Noted Date Comments Aspirin Hives,Rash High 12/30/2018 Medications Medication Sig Dispensed Refills Start Date End Date Status HYDROcodone-acetamin ophen (NORCO) 5-325 MG per tablet Take 1 tablet by mouth every 8 (eight) hours if needed. Active NIFEdipine CC (ADALAT CC) 30 MG 24 hr tablet Take 30 mg by mouth 1 (one) time each day before breakfast. Active ACCU-CHEK SMARTVIEW test strip USE TO TEST BLOOD GLUCOSE BID 6 01/22/2019 Active ACCU-CHEK FASTCLIX LANCETS misc USE TO TEST BLOOD GLUCOSE BID 6 01/22/2019 Active cholecalciferol, vitamin D3, 5,000 Units tablet tablet Vitamin D 5,000 unit tablet Take by oral route. Active amLODIPine (NORVASC) 5 MG tablet amlodipine 5 mg tablet Active metFORMIN (GLUCOPHAGE) 1000 MG tablet metformin 1,000 mg tablet TAKE 1 2 (ONE HALF) TABLET BY MOUTH TWICE DAILY Active nebivolol (Bystolic) 5 MG tablet Bystolic 5 mg tablet TAKE 1 2 (ONE HALF) TABLET BY MOUTH ONCE DAILY Active Lancets Misc. (ACCU-CHEK FASTCLIX LANCET) kit U TO TEST BS BID 03/04/2020 Active NARCAN 4 MG/0.1ML liquid USE DIRECTED NEEDED FOR 1 DAY 01/27/2020 Active cephalexin (KEFLEX) 250 MG capsule TAKE 1 CAPSULE BY MOUTH ONCE DAILY AT BEDTIME 08/03/2020 Active atorvastatin (LIPITOR) 40 MG tablet 04/12/2022 Active B Complex Vitamins (Vitamin-B complex) 25' HALF TABLET Active Active Problems Problem Noted Date Diagnosed Date Pernicious anemia 11/09/2021 Dyslipidemia 12/08/2020 Monoclonal gammopathy of uncertain significance 08/07/2019 Neuropathy 02/11/2019 Type 2 diabetes mellitus 02/11/2019 Urinary tract infectious disease 02/11/2019 Essential hypertension 11/12/2017 Serum vitamin B12 low 03/16/2017 Chronic kidney disease Hypertensive chronic kidney disease 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 Rheumatoid arthritis Gout Hyperlipidemia Immunizations Name Administration Dates Next Due Influenza Split High Dose Pr eservative Free IM 06/28/2017,06/28/2017 Influenza, Injectable, Quadrivalent 06/29/2020,1 ,10/02/2018 Influenza, Quadrivalent 07/20/2021 Influenza, Unspecified 06/25/2018,06/25/2018 Pfizer Sars-cov-2 Vaccination 06/22/2021, 021,11/17/2020 Pneumococcal Conjugate 10/02/2018 Pneumococcal Conjugate 13-Valent 10/18/2016,09/26 Pneumococcal Polysaccharide 06/28/2017, 7 Zoster Recombinant 04/25/2021,02/23/2021 Family History Medical History Relation Comments Hypertension Father Colon cancer Mother Kidney disease Neg Hx Kidney stone Neg Hx Relation Status Comments Father Mother Social History Tobacco Use Types Packs/Day Years Used Date Smoking Tobacco: Former Cigarettes 1 30 1 975 - 2005 Smokeless Tobacco: Never Alcohol Use Standard Drinks/Week Comments Yes 0 (1 standard drink = 0.6 oz pur e alcohol) 1 beer a month AUDIT-C Answer Date Recorded Frequency of Alcohol Consumption Monthly or less 12/30/2018 Average Number of Drinks Not on file 019 Frequency of Binge Drinking Not on file 03/2019 Sex and Gender Information Value Date Recorded Sex Assigned at Male 04/28/2021 7:15 AM MDT Gender Identity Male 04/28/2021 7:15 AM MDT Sexual Orientation Straight 04/28/2021 7: 15 AM MDT Last Filed Vital Signs Vital Sign Reading Time Taken Comments Blood Pressure 136/82 05/16/2022 9:04 AM CDT Pulse - - Temperature 36.3 C (97.4 F) 05/16/2022 9:04 AM CDT Respiratory Rate 18 05/16/2022 9:04 AM CDT Oxygen Saturation - - Inhaled Oxygen Concentration - - Weight 86.2 kg (190 lb) 05/16/2022 9:04 AM CDT Height 188 cm (6' 2 ) 05/16/2022 9:04 AM CDT Body Mass Index 24.39 05/16/2022 9:04 AM CDT Plan of Treatment Health Maintenance Due Date Last Done Comments Diabetic Foot Exam 02/25/1962 Ophthalmology Exam 02/25/1962 COVID-19 Vaccine (2022- 4 season) 2024 06/22/2021, 12/10/2020, 11/17/2020 Influenza Vaccine (#1) 2024 06/25/2018, 2017 Pneumococcal PPSV23/PCV13 65 + Years / High and Highest Risk Completed 06/28/2017, 06/28/2017, 10/18/2016, Additional history exists Advance Directives For more information, please contact: [phone] (Available ) Documents on File Type Date Recorded Patient Wallpaperer Helper Expl anation Power of Director Service 05/10/2021 2:11 PM Calin [email or web address] Care Teams Academic Affairs Coordinator Relationship Specialty Start Date End Date Silvino Pace MD [address] [facility] [address] [place] [address] PCP - General Family Medicine 12/30/18
--- OUTSIDE RECORDS SUMMARY | 2024-11-07 10:35 | XMS_ITS | Clinical Summary ---
Author Organization [facility] Address [address] [facility] [place] [address] Care Team Providers Care Air Boatswain Name Role Phone Unavailable Primary Care Provider Unavailabl e Source Comments [facility],non-owned Affiliates and Associated Physician Practices is amultiple site organization consisting of ambulatory clinics and hospital sitesin [place], [place] and [place]. This disclosure is being madepursuant to the Care Everywhere program and may not contain all information available regarding this patient. Last updated 18.[facility] Social History Tobacco Use Types Packs/Day Years Used Date Smoking Tobacco: Never Assessed Sex and Gender Information Value Date Recorded Sex Assigned at Not on file Gender Identity Not on file Sexual Orientation Not on file Plan of Treatment Health Maintenance Due Date Last Done Comments BONE DENSITY TESTING 1950 COLOGUARD (AGES 45-75) - COL ON CA SCREENING 1950 COLON MONITORING 1950 COLONOSCOPY - COLON CA SCREENING 1952 CT COLONOGRAPHY - COLON CA SCREENING 1950 Colorectal Cancer Screening 1950 FIT - COLON CA SCREENING 1952 FLEX SIG - COLON CA SCREENING 1950 LIPID TESTING 1950 MAMMOGRAM 1950 MEDICARE AWV 12 MONTHS 1950 HEPATITIS C SCREENING 03/03/1970 DTAP/TDAP/TD VACCINES (1 - Tdap) 03/07/1971 PNEUMOCOCCAL VACCINE 50+ (1 of 1 - PCV) 03/07/2002 ZOSTER VACCINE (1 of 2) 03/07/2002 COVID-19 VACCINE ( - 2023-2 5 season) 2024 INFLUENZA VACCINE (#1) 2024 DEPRESSION SCREENING 09/25/2024 Respiratory Syncytial Virus (RSV) Vaccine Pt: or over 60 yrs (1 - 1-dose 75+ series) 03/07/2027 HEPATITIS B VACCINE Aged Out No longe r eligible based on patient's age to complete this topic HIB VACCINE Aged Out No longer eligi ble based on patient's age to complete this topic HPV VACCINE Aged Out No longer eligi ble based on patient's age to complete this topic MENINGOCOCCAL (Group B) VACCINE Aged Out No longer eligible based on patient's age to complete this topic MENINGOCOCCAL VACCINE Aged Out No rachel elisa eligible based on patient's age to complete this topic
--- OUTSIDE RECORDS SUMMARY | 2024-11-07 10:35 | XMS_ITS | Patient Health Summary ---
Author Organization [facility] Address [address] [place] [address] Care Team Providers Care Graphics Intern Name Role Phone Unavailable Primary Care Provider Unavailabl e Note from [facility] [place],non-owned Affiliates and Associated Physician Practices is amultiple site organization consisting of ambulatory clinics and hospital sitesin [place], [place], [place] and [place]. This disclosure is being madepursuant to the Care Everywhere program and may not contain all information available regarding this patient. Last updated 18.[facility] Social History Tobacco Use Types Packs/Day Years Used Date Smoking Tobacco: Never Assessed Sex and Gender Information Value Date Recorded Sex Assigned at Not on file Gender Identity Not on file Sexual Orientation Not on file Procedures * DERMATOPATHOLOGY(Performed 05/06/2020) Results * DERMATOPATHOLOGY (05/06/2020 12:00 AM CDT) Case Report Dermatopathology Report Case: [id number] Authorizing Provider: Rom Queen MD Collected: 05/06/2020 12:00 AM Ordering Location: [facility] DermPath Lab Received: 05/08/2020 02:22 PM Pathologist: Gloria Nieves MD Specimen: Skin, left middle finger 0 3:42 PM CDT DERMATOPATHOLOGY LABORATORY Final Diagnosis Specimen A. 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 The specimen consists of a shave biopsy measuring 6x6x3 mm. Jar 0. 08/17/202 0 3:42 PM CDT DERMATOPATHOLOGY LABORATORY Microscopic Description Specimen A. SKIN, left middle finger: The epidermis is acanthotic and hyperkeratotic and surrounds a dermis with thick collagen bundles oriented predominantly in a vertical fashion. There are scattered stellate fibroblasts. COMMENT: Included in this group are: acquired digital fibrokeratoma, acquired periungual fibrokeratoma, garlic clove fibroma, and subungual/periungua l fibromas of tuberous sclerosis. 0 3:42 PM CDT DERMATOPATHOLOGY LABORATORY Disclaimer An external and internal positive and negative controls are appropriate for the histochemical, immunohistochemical and immunofluorescence stain(s) in this case (if any), except where stated explicitly. The performance characteristics of the stain(s) cited in this report were developed and its performance characteristic determined by the Dermatopathology Laboratory at [facility], directed by Dr. Joya Spring. These tests need not be, and therefore are not, approved by the [place] Food and Drug Administration. The tests are used for clinical purposes. Billing Codes Specimen Charges Stain Charges 80151 1 0 3:42 PM CDT DERMATOPATHOLOGY LABORATORY Embedded Images 0 3:42 PM CDT DERMATOPATHOLOGY LABORATORY Pathology/Cytolog y TISSUE SPECIMEN FROM SKIN / Unknown 05/06/2020 05/08/2020 2:22 PM CDT Rom Queen MD LAB - PATHOLOGY/CYTO LOGY ORDERABLES DERMATOPATHOLOGY LABORATORY [facility] - Department of Dermatology [facility]/[address] [phone]
--- OUTSIDE RECORDS SUMMARY | 2024-11-07 10:35 | XMS_ITS | Encounter Summary ---
Author Organization [facility] Address [address] [place] [address] Care Team Providers Care Director Global Medical Affairs Name Role Phone Unavailable Primary Care Provider Unavailabl e Encounter Details Date Type Department Care Team (Late st Contact Info) Description 05/08/2020 Lab Requisition [facility] DermPath Lab [address] [place] [id number] Rom Queen MD [address] [place] [address] Social History Tobacco Use Types Packs/Day Years Used Date Smoking Tobacco: Never Assessed Sex and Gender Information Value Date Recorded Sex Assigned at Not on file Gender Identity Not on file Sexual Orientation Not on file documented as of this encounter Plan of Treatment Not on file documented as of this encounter Procedures Procedure Name Priority Date/Time Associated Diagnosis Comments DERMATOPATHOLOGY Routine 05/06/2020 12:0 0 AM CDT documented in this encounter Results * DERMATOPATHOLOGY (05/06/2020 12:00 AM CDT) Case Report Dermatopathology Report Case: [id number] Authorizing Provider: Rom Queen MD Collected: 05/06/2020 12:00 AM Ordering Location: [facility] DermPath Lab Received: 05/08/2020 02:22 PM [...] shave biopsy measuring 6x6x3 mm. Jar 0. 0 3:42 PM CDT DERMATOPATHOLOGY LABORATORY Microscopic [...] characteristic determined by the Dermatopathology Laboratory at [facility], directed by Dr. Joya Spring. These tests need not be, and therefore are not, approved by the [place] Food and Drug Administration. The tests are used for clinical purposes. Billing Codes Specimen Charges Stain Charges 98786 1 0 3:42 PM CDT DERMATOPATHOLOGY LABORATORY Embedded Images 0 3:42 PM CDT DERMATOPATHOLOGY LABORATORY Pathology/Cytolog y TISSUE SPECIMEN FROM SKIN / Unknown 05/06/2020 05/08/2020 2:22 PM CDT Rom Queen MD LAB - PATHOLOGY/CYTO LOGY ORDERABLES DERMATOPATHOLOGY LABORATORY [facility] - Department of Dermatology [employer] [place]/[address] [phone] documented in this encounter Visit Diagnoses Not on filedocumented in this encounter
[2024-11-07 19:32] LABS: Alanine Aminotransferase 19 U/L (6-50); Albumin Level 4.3 g/dL (3.5-5.1); Alkaline Phosphatase 52 U/L (38-126); Anion Gap 7 mmol/L (4-12); Aspartate Amino Transferase 27 U/L (17-59); Bilirubin,Total 0.5 mg/dL (0.2-1.3); Blood Urea Nitrogen 21 mg/dL (9-20); Calcium 9.8 mg/dL (8.4-10.2); Carbon Dioxide 30 mmol/L (22-30); Chloride 100 mmol/L (98-107); Cholesterol 162 mg/dL (0-200); Estimated Glomerular Filt Rate 59; Glucose 132 mg/dL (65-110); HDL Direct 45 mg/dL; Potassium 4.6 mmol/L (3.4-5.0); Sodium 137 mmol/L (137-145); Triglycerides 174 mg/dL (<150); Uric Acid 7.9 mg/dL (3.5-8.5)
[2024-11-07 19:44] LABS: LDL Cholesterol Direct 79 mg/dL
[2024-11-07 19:50] LABS: Albumin Level 4.2 g/dL (3.5-5.1); Anion Gap 9 mmol/L (4-12); Blood Urea Nitrogen 22 mg/dL (9-20); Calcium 9.8 mg/dL (8.4-10.2); Carbon Dioxide 28 mmol/L (22-30); Chloride 102 mmol/L (98-107); Estimated Glomerular Filt Rate 58; Glucose 136 mg/dL (65-110); Phosphorus 3.9 mg/dL (2.5-4.5); Potassium 4.6 mmol/L (3.4-5.0); Sodium 139 mmol/L (137-145)
[2024-11-07 19:54] LABS: Creatinine Urine 34.7 mg/dL; Total Protein Urine Random 57 mg/dL; Ur Ttl Prot Creatinine Ratio 1.64 mg/mg (0-0.20)
[2024-11-07 20:19] LABS: Hemoglobin A1C 6.7 % (<5.7)
[2024-11-07 20:34] LABS: Vitamin B12 > 1000.0 pg/mL (239-931)
[2024-11-07 20:39] LABS: Creatinine Urine 33.8 mg/dL
[2024-11-07 20:58] LABS: MALB Creatinine Ratio 588.8 mg/g (0-30)
== END 2024-11-07 10:17 | disposition home or self-care (01) ==
LOC: ANHGOSHLAB 10:18
PROVIDERS: PCP Family Medicine; Visit Provider Internal Medicine Nephrology
DX: I12.9 Hypertensive chronic kidney disease with stage 1 through stage 4 chronic kidney disease, or unspecified chronic kidney disease (principal); E11.22 Type 2 diabetes mellitus with diabetic chronic kidney disease; N18.2 Chronic kidney disease, stage 2 (mild); D47.2 Monoclonal gammopathy; M79.89 Other specified soft tissue disorders; Z90.5 Acquired absence of kidney
CPT/HCPCS: 36415; 80053; 80061; 80069; 82043; 82570; 82607; 83036; 84156; 84550

== ENCOUNTER 2025-03-17 08:10 | Outpatient (CLI) | payer MEDICARE, SELFPAY ==
[2025-03-17 12:44] LABS: Basophils Percent Auto 0.7 % (0.2-1.2); Eosinophils Absolute Auto 0.3 K/mm3 (0-0.3); Eosinophils Percent Auto 6.1 % (0-4.4); Hematocrit 41.5 % (42.0-52.0); Hemoglobin 13.3 g/dL (14.0-18.0); Lymphocytes Absolute Auto 1.61 K/mm3 (0.9-3.2); Mean Corpuscular Hemoglobin 29.7 pg (26-34); Mean Corpuscular Volume 92.6 fl (80-100); Monocytes Absolute Auto 0.4 K/mm3 (0.1-0.6); Monocytes Percent Auto 10.1 % (2.6-8.5); Neutrophils Absolute Auto 1.9 K/mm3 (1.3-6.7); Neutrophils Percent Auto 45.1 % (45.5-73.1); Platelet Count Result 191 k/mm3 (150-375); Red Blood Count 4.48 M/mm3 (4.6-6.20); Red Cell Distribution Width 13.2 % (11.5-14.5); White Blood Count 4.2 K/mm3 (4.5-10.0)
[2025-03-17 12:53] LABS: Alanine Aminotransferase 20 U/L (6-50); Albumin Level 4.1 g/dL (3.5-5.1); Alkaline Phosphatase 41 U/L (38-126); Anion Gap 9 mmol/L (4-12); Aspartate Amino Transferase 42 U/L (17-59); Bilirubin,Total 0.5 mg/dL (0.2-1.3); Blood Urea Nitrogen 18 mg/dL (9-20); Calcium 9.6 mg/dL (8.4-10.2); Carbon Dioxide 25 mmol/L (22-30); Chloride 102 mmol/L (98-107); Cholesterol 219 mg/dL (0-200); Estimated Glomerular Filt Rate 57; Glucose 132 mg/dL (65-110); HDL Direct 46 mg/dL; Potassium 4.1 mmol/L (3.4-5.0); Sodium 136 mmol/L (137-145); Total Protein 7.5 g/dL (6.3-8.2); Triglycerides 210 mg/dL (<150)
[2025-03-17 13:04] LABS: LDL Cholesterol Direct 103 mg/dL
[2025-03-17 15:03] LABS: Microalbumin Urine Random 172.2 mg/L (0-16.7)
[2025-03-17 15:04] LABS: Creatinine Urine 41.6 mg/dL; MALB Creatinine Ratio 413.9 mg/g (0-30)
[2025-03-17 17:10] LABS: Hemoglobin A1C 6.4 % (<5.7)
== END 2025-03-17 08:11 | disposition home or self-care (01) ==
PROVIDERS: PCP Family Medicine; Visit Provider Family Medicine
DX: E11.22 Type 2 diabetes mellitus with diabetic chronic kidney disease (principal); N18.2 Chronic kidney disease, stage 2 (mild); M06.9 Rheumatoid arthritis, unspecified
CPT/HCPCS: 36415; 80053; 80061; 82043; 82607; 83036; 85025

== ENCOUNTER 2025-04-15 09:33 | Outpatient (CLI) | payer MEDICARE, SELFPAY ==
--- OUTSIDE RECORDS SUMMARY | 2025-04-15 09:40 | XMS_ITS | Clinical Summary ---
Author Organization [facility] [employer] Address [address] [place] [address] Care Team Providers Care Kiln Fireman Name Role Phone Unavailable Primary Care Provider Unavailabl e Source Comments [facility] [facility] [employer],non-owned Affiliates and Associated Physician Practices is amultiple site organization consisting of ambulatory clinics and hospital sitesin [place], [place], [place] and [place]. This disclosure is being madepursuant to the Care Everywhere program and may not contain all information available regarding this patient. Last updated 18.[facility] Social History Tobacco Use Types Packs/Day Years Used Date Smoking Tobacco: Never Assessed Comments Unknown Sex and Gender Information Value Date Recorded Sex Assigned at Not on file Legal Sex Female 12:54 PM CDT Gender Identity Not on file [...] SCREENING 1952 LIPID TESTING 1950 MAMMOGRAM 1950 HEPATITIS C SCREENING 03/03/1970 DTAP/TDAP/TD VACCINES (1 - Tdap) 03/07/1971 PNEUMOCOCCAL VACCINE 50+ (1 of 1 - PCV) 03/07/2002 ZOSTER VACCINE (1 of 2) 03/07/2002 COVID-19 VACCINE ( - 2023-2 5 season) 2024 DEPRESSION SCREENING 09/25/2024 INFLUENZA VACCINE (#1) 2025 Respiratory Syncytial Virus (RSV) Vaccine Pt: or [...] to complete this topic MENINGOCOCCAL (Group B) VACC INE SHARED DECISION-MAKING Aged Out No longer eligibl e based on patient's age to complete this topic MENINGOCOCCAL GROUPS A/C/Y/W VACCINE Aged Out No longer eligible b ased on patient's age to complete this topic Insurance MEDICARE
--- OUTSIDE RECORDS SUMMARY | 2025-04-15 09:40 | XMS_ITS | Clinical Summary ---
Author Organization [facility] Address [address] [place] [address] Phone Care Team Providers Care Certified Court Interpreter Name Role Phone Silvino Pace MD Primary Care Provider [phone] Allergies Active Allergy Reactions Criticality Noted Date Comments Aspirin Hives,Rash High 12/30/2018 Medications HYDROcodone-sheyla taminophen (NORCO) 5-325 MG per tablet Take 1 tablet by mouth every 8 (eight) hours if needed. Active NIFEdipine CC (ADALAT CC) 30 MG 24 hr tablet Take 30 mg by mouth 1 (one) time each day before breakfast. Active ACCU-CHEK SMARTVIEW test strip USE TO TEST BLOOD GLUCOSE BID 6 9 Active ACCU-CHEK FASTCLIX LANCETS misc USE TO TEST BLOOD GLUCOSE BID 6 9 Active cholecalciferol , vitamin D3, 5,000 Units tablet tablet Vitamin [...] LANCET) kit U TO TEST BS BID 0 Active NARCAN 4 MG/0.1ML liquid USE DIRECTED NEEDED FOR 1 DAY 0 Active cephalexin (KEFLEX) 250 MG capsule TAKE 1 CAPSULE BY MOUTH ONCE DAILY AT BEDTIME 0 Active atorvastatin (LIPITOR) 40 MG tablet 2 Active B Complex Vitamins (Vitamin-B complex) 25' [...] of kidney Rheumatoid arthritis Gout Hyperlipidemia Immunizations Immunization Administration Dates Next Due Influenza Split High [...] Assigned at Male 04/28/2021 7:15 AM MDT Legal Sex Male 7:53 PM [facility] Gender Identity Male 04/28/2021 7:15 AM MDT Sexual Orientation Straight 04/28/2021 7: 15 AM MDT Occupation Industry Job Start Date Job End Date Retired Not on file Not on file Not on file Last Filed Vital Signs Vital Sign Reading Time Taken Comments Blood Pressure 136/82 05/16/2022 9:04 AM CDT Pulse - - Temperature 36.3 C (97.4 F) 05/16/2022 9:04 AM CDT Respiratory Rate 18 05/16/2022 9:04 AM CDT Oxygen Saturation - - Inhaled Oxygen Concentration - - Weight 86.2 kg (190 lb) 05/16/2022 9:04 AM CDT Height 188 cm (6' 2) 05/16/2022 9:04 AM CDT Body Mass Index 24.39 05/16/2022 9:04 AM CDT Plan of Treatment Health Maintenance Due Date Last Done Comments COVID-19 Vaccine (2023- 5 season) 2024 06/22/2021, 12/10/2020, 11/17/2020 Influenza Vaccine (#1) 2025 06/25/2018, 2017 Pneumococcal PPSV23/PCV13 65 + Years / Low and Medium Risk Completed 06/28/2017, 06/28/2017, 10/18/2016, Additional history exists Insurance MEDICARE CIG Advance Directives For more information, please contact: [phone] (7AM - 4PM [facility]/[place], 7 days a week) Documents on File Type Date Recorded Patient Sales Support Rep Expl anation Power of Chief Projectionist 05/10/2021 2:11 PM Calin [email or web address] Care Teams Certified Court Interpreter Relationship Specialty Start Date End Date Silvino Pace MD [address] [phone] PCP - General Family Medicine 12/30/18
--- OUTSIDE RECORDS SUMMARY | 2025-04-15 09:40 | XMS_ITS | Clinical Summary ---
Author Organization [facility] Address [address] [facility] [place] [address] Care Team Providers Care Credit Administration Specialist Name Role Phone Unavailable Primary Care Provider Unavailabl e Social History Tobacco Use Types Packs/Day Years Used Date Smoking Tobacco: Never Assessed Sex and Gender Information Value Date Recorded Sex Assigned at Not on file Legal Sex Male 4:13 PM CDT Gender Identity Not on file Sexual Orientation Not on file Plan of Treatment Health Maintenance Due Date Last Done Comments Colorectal Cancer Screening Colonoscopy (10 Years) 1950 Hepatitis C 02/25/1970 DTaP, Tdap and Td Vaccines ( 1 - Tdap) 02/25/1971 Pneumococcal Vaccine: 50+ Ye ars (1 of 1 - PCV) 02/25/2002 Zoster Vaccines (1 of 2) 02/25/2002 COVID-19 Vaccine ( - 2023-2 5 season) 2024 RSV Immunization or 60+ Years (1 - 1-dose 75+ series) 02/25/2027 Meningococcal B Vaccine Aged Out No l onger eligible based on patient's age to complete this topic Meningococcal Vaccine Aged Out No rachel elisa eligible based on patient's age to complete this topic RSV Immunizations Under 20 Months Aged Out No longer eligible based on patient's age to complete this topic
--- OUTSIDE RECORDS SUMMARY | 2025-04-15 09:40 | XMS_ITS | Data Portability ---
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 Name Role Phone XANDER PACE Primary Care Provider XANDER PACE Referring Provider [phone] Assessment Encounter Date Assessment Date Assessment LastModified by Organization Details LastModified Time 12/22/2022 12/22/2022 Blood pressure looks good Blood work ordered Goals for A1c blood pressure in A1c have been discussed Other medical problems have been discussed Follow-up in 4-6 months continue current therapy Not available 12/25/2022 11:40:10 05/02/2023 05/02/2023 Continue current therapy follow-up with me in 4 months diagnosis in assessment and plan discussed [email or web address] Not available 05/14/2023 21:59:05 07/27/2023 07/27/2023 This was erroneously put in as an office visit this was just them coming in to tell me they were switching all their physicians to another medical group and that they were appreciative of my care through this past years [email or web address] Not available 09/22/2023 12:55:58 Plan of Treatment Reminders Order Date Submit Date Provider Last Modified By Organization Details Last Modified Time Details Appointments None recorded. Lab PSA, serum or plasma 2022 023 cyahl Not available 10:57:11 HbA1c (hemoglobin A1c), blood 2022 023 cyahl Not available 10:57:03 lipid panel, serum 2022 023 ROSE MARY Not available 12:47:44 CBC w/ auto diff 2022 023 ROSE MARY Not available 12:25:34 CMP, serum or plasma 2022 023 ROSE MARY Not available 15:59:49 Referral None recorded. Procedures None recorded. Surgeries None recorded. Imaging None recorded. Medication Orders cyanocobala min (vit B-12) 1,000 mcg/mL injection solution 2022 023 [email or web address] [id number], [address], [place], [address], 11:49:06 cyanocobala min (vit B-12) 1,000 mcg/mL injection solution 2022 023 [id number], [address], [place], [address], 13:11:42 cyanocobala min (vit B-12) 1,000 mcg/mL injection solution 2022 023 [email or web address] Not available 11:34:29 Patient TargetsNo targets recorded. Patient InstructionsNo instructions recorded. Reason for Referral None Reported. Results Created Date Observation Date Name Description Value Unit Range Abnormal Flag Note LastModifiedBy Organization Detail LastModifiedTime 04/17/2004/17/2023 CBC/C OMPLE TE BLD COUNT W/DIF F white blood cells 4.9 x10'3 /uL 4.2-10 .8 Not Available [facility] (Lab) [address] [place], [address], 04/17/2023 12:41:23 04/17/20 23 04/17/2023 CBC/C OMPLE TE BLD COUNT W/DIF F red blood cells 4.48 x10'6 /uL 4.10-5 .80 Not Available [facility] (Lab) [address] [place], [address], 04/17/2023 12:41:23 04/17/2004/17/2023 CBC/C OMPLE TE BLD COUNT W/DIF F hemoglobin 13.2 g/dL 13.2-1 7.0 Not Available [facility] (Lab) [address] [place], [address], 04/17/2023 12:41:23 04/17/2004/17/2023 CBC/C OMPLE TE BLD COUNT W/DIF F hematocrit 40.5 % 39.3-5 0.0 Not Available [facility] (Lab) [address] [place], [address], 04/17/2023 12:41:23 04/17/2004/17/2023 CBC/C OMPLE TE BLD COUNT W/DIF F mean red cell volume 90.4 fL 80.0-9 7.0 Not Available [facility] (Lab) [address] [place], [address], 04/17/2023 12:41:23 04/17/2004/17/2023 CBC/C OMPLE TE BLD COUNT W/DIF F mean red cell hemoglobin 29.5 pg 27.0-3 3.0 Not Available [facility] (Lab) [address] [place], [address], 04/17/2023 12:41:23 04/17/2004/17/2023 CBC/C OMPLE TE BLD COUNT W/DIF F mean RBC HGB concentratio n 32.6 g/dL 31.0-3 6.0 Not Available [facility] (Lab) [address] [place], [address], 04/17/2023 12:41:23 04/17/2004/17/2023 CBC/C OMPLE TE BLD COUNT W/DIF F red cell distribution width 13.1 % 11.8-1 5.5 Not Available [facility] (Lab) [address] [place], [address], 04/17/2023 12:41:23 04/17/2004/17/2023 CBC/C OMPLE TE BLD COUNT W/DIF F platelets 199 x10'3 /uL 150-40 0 Not Available [facility] (Lab) [address] [place], [address], 04/17/2023 12:41:23 04/17/2004/17/2023 CBC/C OMPLE TE BLD COUNT W/DIF F mean platelet volume 9.8 fL 9.0-12 .4 Not Available [facility] (Lab) [address] [place], [address], 04/17/2023 12:41:23 04/17/2004/17/2023 CBC/C OMPLE TE BLD COUNT W/DIF F neutrophils 50.6 % 39.0-7 2.0 Not Available [facility] (Lab) [address] [place], [address], 04/17/2023 12:41:23 04/17/2004/17/2023 CBC/C OMPLE TE BLD COUNT W/DIF F lymphocytes 32.9 % 16.0-4 7.0 Not Available [facility] (Lab) [address] [place], [address], 04/17/2023 12:41:23 04/17/2004/17/2023 CBC/C OMPLE TE BLD COUNT W/DIF F monocytes 10.8 % 5.0-12 .0 Not Available [facility] (Lab) [address] [place], [address], 04/17/2023 12:41:23 04/17/2004/17/2023 CBC/C OMPLE TE BLD COUNT W/DIF F eosinophils 4.5 % 1.0-7. 0 Not Available [facility] (Lab) [address] [place], [address], 04/17/2023 12:41:23 04/17/2004/17/2023 CBC/C OMPLE TE BLD COUNT W/DIF F basophils 1.0 % 0.0-2. 0 Not Available [facility] (Lab) [address] [place], [address], 04/17/2023 12:41:23 04/17/2004/17/2023 CBC/C OMPLE TE BLD COUNT W/DIF F immature granulocytes 0.2 % 0.00-0 .50 Not Available [facility] (Lab) [address] [place], [address], 04/17/2023 12:41:23 04/17/2004/17/2023 CBC/C OMPLE TE BLD COUNT W/DIF F neutrophils, absolute count 2.50 x10'3 /uL 1.5-8. 0 Not Available [facility] (Lab) [address] [place], [address], 04/17/2023 12:41:23 04/17/2004/17/2023 CBC/C OMPLE TE BLD COUNT W/DIF F lymphocytes, absolute count 1.62 x10'3 /uL 1.07-3 .43 Not Available [facility] (Lab) [address] [place], [address], 04/17/2023 12:41:23 04/17/2004/17/2023 CBC/C OMPLE TE BLD COUNT W/DIF F monocytes, absolute count 0.53 x10'3 /uL 0.29-0 .99 Not Available [facility] (Lab) [address] [place], [address], 04/17/2023 12:41:23 04/17/2004/17/2023 CBC/C OMPLE TE BLD COUNT W/DIF F eosinophils, absolute count 0.22 x10'3 /uL 0.02-0 .53 Not Available [facility] (Lab) [address] [place], [address], 04/17/2023 12:41:23 04/17/2004/17/2023 CBC/C OMPLE TE BLD COUNT W/DIF F basophils, absolute count 0.05 x10'3 /uL 0.01-0 .08 Not Available [facility] (Lab) [address] [place], [address], 04/17/2023 12:41:23 04/17/2004/17/2023 CBC/C OMPLE TE BLD COUNT W/DIF F immature granulocytes ,absolute 0.01 x10'3 /uL 0.00-0 .05 Not Available [facility] (Lab) [address] [place], [address], 04/17/2023 12:41:23 04/17/2004/17/2023 CBC/C OMPLE TE BLD COUNT W/DIF F nucleated red blood cells 0.0 % -0 Not Available [facility] (Lab) [address] [place], [address], 04/17/2023 12:41:23 04/17/2004/17/2023 CBC/C OMPLE TE BLD COUNT W/DIF F NRBC# 0.00 x10'3 /uL Not Available [facility] (Lab) [address] [place], [address], 04/17/2023 12:41:23 04/17/2004/17/2023 LIPID PANEL cholesterol 131 mg/dL 140-19 9 low NIH LINUS NSUS RECOM MENDA TION FOR KARINA STERO L: ADULT CHILD LOW RISK: <200 <170 BORDE RLINE : <200- 239 ----- HIGH RISK: >240 >200 Not Available [facility] (Lab) [address] [place], [address], 04/17/2023 12:47:44 04/17/2004/17/2023 LIPID PANEL triglyceride s 110 mg/dL 0-150 NIH LINUS NSUS REPOR T RECOM MENDA TION FOR TRIGL YCERI MARISABEL: ADULT CHILD LOW RISK: <150 ----- BODER LINE: 150-1 99 ----- HIGH RISK: >200 ----- Not Available [facility] (Lab) [address] [place], [address], 04/17/2023 12:47:44 04/17/2004/17/2023 LIPID PANEL HDL cholesterol 55 mg/dL 40- Not Available [facility] (Lab) [address] [place], [address], 04/17/2023 12:47:44 04/17/2004/17/2023 LIPID PANEL LDL cholesterol, calculated 54 mg/dL 0-130 NIH LINUS NSUS REPOR T RECOM MENDA TIONS FOR LDL: ADULT CHILD LOW RISK <130 <110 (OPTI MAL LDL) <100 ----- DMITRY RLINE : 130-1 59 ----- HIGH RISK: >160 >130 A TRIGL YCERI DE RESUL T >400 INVAL IDATE S THE CALCU LATIO N FOR LDL FRACT IONAT ION - THE LDL RESUL T WILL NOT BE REPOR ZARA. Not Available [facility] (Lab) [address] [place], [address], 04/17/2023 12:47:44 04/17/2004/17/2023 COMPR EHENS KESHA METAB OLIC PANEL sodium 138 mmol/ L 137-14 5 Not Available [facility] (Lab) [address] [place], [address], 04/17/2023 12:47:51 04/17/2004/17/2023 COMPR EHENS KESHA METAB OLIC PANEL potassium 4.5 mmol/ L 3.5-5. 1 Not Available [facility] (Lab) [address] [place], [address], 04/17/2023 12:47:51 04/17/20 23 04/17/2023 COMPR EHENS KESHA METAB OLIC PANEL chloride 102 mmol/ L 98-107 Not Available [facility] (Lab) [address] [place], [address], 04/17/2023 12:47:51 04/17/20 23 04/17/2023 COMPR EHENS KESHA METAB OLIC PANEL carbon dioxide 27 mmol/ L 22-30 Not Available [facility] (Lab) [address] [place], [address], 04/17/2023 12:47:51 04/17/20 23 04/17/2023 COMPR EHENS KESHA METAB OLIC PANEL anion gap 13.5 mmol/ L 14-22 low Not Available [facility] (Lab) [address] [place], [address], 04/17/2023 12:47:51 04/17/20 23 04/17/2023 COMPR EHENS KESHA METAB OLIC PANEL glucose 152 mg/dL 70-99 high Not Available [facility] (Lab) [address] [place], [address], 04/17/2023 12:47:51 04/17/20 23 04/17/2023 COMPR EHENS KESHA METAB OLIC PANEL BUN 17 mg/dL 8-19 Not Available [facility] (Lab) [address] [place], [address], 04/17/2023 12:47:51 04/17/20 23 04/17/2023 COMPR EHENS KESHA METAB OLIC PANEL creatinine 1.13 mg/dL 0.66-1 .25 Not Available [facility] (Lab) [address] [place], [address], 04/17/2023 12:47:51 04/17/20 23 04/17/2023 COMPR EHENS KESHA METAB OLIC PANEL GFR >60 Refer ence Range : [place] ge GFR Healt hy Adult : >60 mL/mi n/1.7 3 m2 Chron ic Kidne y Disea se: 15-60 mL/mi n/1.7 3 m2 Kidne y Failu re: <15/m L/min /1.73 m2 www.n iddk. nih.g ov The MDRD study equat ion has not been valid ated in child nisha <18 years of age; pregn ant women ; the elder ly >85 years of age; or in some racia l or ethni c subgr oups, such as Hispa nics. Outsi de the valid ated clemencia eters , estim ated GFR is less accur ate, requi ring clini ilana judgm ent on a case- by-ca se basis . Clini ilana inter preta tion for other races and ages must be made by the clini jammie. The MDRD study equat ion has not been valid ated for the evalu ation of serum creat inine relat ed to nutri nikhil l statu s or medic ation usage . For perso ns <18 years of age, a pedia tric GFR calcu lator is avail able on the [facility] websi te: https ://marbin w.luis m cash.o rg/pr ofess ional s/kdo qi/gf r_cal culat or Not Available [facility] (Lab) [address] [place], [address], 04/17/2023 12:47:51 04/17/2004/17/2023 COMPR EHENS KESHA METAB OLIC PANEL alkaline phosphatase 51 U/L 38-126 Not Available [facility] (Lab) [address] [place], [address], 04/17/2023 12:47:51 04/17/2004/17/2023 COMPR EHENS KESHA METAB OLIC PANEL alanine aminotransfe rase 23 U/L 0-50 Not Available [facility] (Lab) [address] [place], [address], 04/17/2023 12:47:51 04/17/2004/17/2023 COMPR EHENS KESHA METAB OLIC PANEL aspartate aminotransfe rase 29 U/L 15-46 Not Available [facility] (Lab) [address] [place], [address], 04/17/2023 12:47:51 04/17/20 23 04/17/2023 COMPR EHENS KESHA METAB OLIC PANEL bilirubin, total 0.50 mg/dL 0.20-1 .30 Not Available [facility] (Lab) [address] [place], [address], 04/17/2023 12:47:51 04/17/2004/17/2023 COMPR EHENS KESHA METAB OLIC PANEL calcium 9.7 mg/dL 8.4-10 .2 Not Available [facility] (Lab) [address] [place], [address], 04/17/2023 12:47:51 04/17/20 23 04/17/2023 COMPR EHENS KESHA METAB OLIC PANEL total protein 7.7 g/dL 6.3-8. 2 Not Available [facility] (Lab) [address] [place], [address], 04/17/2023 12:47:51 04/17/2004/17/2023 COMPR EHENS KESHA METAB OLIC PANEL albumin 4.4 g/dL 3.0-4. 4 Not Available [facility] (Lab) [address] [place], [address], 04/17/2023 12:47:51 04/17/20 23 04/17/2023 COMPR EHENS KESHA METAB OLIC PANEL globulin 3.3 g/dL 2.6-4. 2 Not Available [facility] (Lab) [address] [place], [address], 04/17/2023 12:47:51 04/17/20 23 04/17/2023 COMPR EHENS KESHA METAB OLIC PANEL A/G ratio 1.3 ratio 1.0-2. 0 Not Available [facility] (Lab) [address] [place], [address], 04/17/2023 12:47:51 04/17/2004/17/2023 PSA SCREE N PSA medicare screen 0.82 NG/mL 0.00-4 .00 Not Available [facility] (Lab) [address] [place], [address], 04/17/2023 13:15:15 04/17/2004/17/2023 HEMOG LOBIN A1C HA1C 6.6 % 4.0-6. 0 high Diabe vandana Scree felix Crite daily: <5.7% Consi stent with absen ce of diabe vandana 5.7-6 .4% Consi stent with incre ased risk for diabe vandana (pred iabet es) >OR=6 .5% Consi stent with diabe vandana REFER ENCE: Diabe vandana Care 2016, 39(Vargas ppl.1 ):s13 -s22 Not Available [facility] (Lab) [address] [place], [address], 04/17/2023 19:53:57 Result Notes None recorded. Problems Name Problem SNOMED Code Status Onset Date Resolution Date Notes Provider Name and Address Organization Details Recorded Time Clear cell carcinoma of kidney 910836086 Active Not Available [facility] 3 09:13:09 Malaise and fatigue 763383207 Active Not Available [facility] 3 09:13:09 Blood in urine 25523154 Active Not Available [facility] 3 09:13:09 Neuropathy 119838007 Active Not Available [facility] 3 09:13:09 Type 2 diabetes mellitus 86767400 Active Not Available [facility] 3 09:13:09 Urinary tract infectious disease 53206985 Active Not Available [facility] 3 09:13:09 Rheumatoid arthritis 50136009 Active Not Available [facility] 3 09:13:09 Gout 50258396 Active Not Available [facility] 3 09:13:09 Serum vitamin B12 below reference range 879393984 Active 2016 Not Available [facility] 3 09:13:09 Lightheadedne ss 389833403 Active 2016 Not Available [facility] 3 09:13:09 Essential hypertension 33561871 Active 2017 Not Available [facility] 3 09:13:09 Dyslipidemia 800701064 Active 2020 Not Available [facility] 3 09:13:09 Pernicious anemia 65748502 Active 2021 Not Available [facility] 3 09:13:09 Cobalamin deficiency 102221012 Active 2021 Not Available [facility] 3 09:13:09 Type 2 diabetes mellitus without complication 149984421 Active 2022 Not Available [facility] 3 09:13:09 Problem Notes None recorded. Procedures Surgical History Date Name Laterality Status Provider Name and Address Organization Details Recorded Time other completed Not Available [facility] 09/2022 02:46:36 other completed Not Available [facility] 09/2022 02:46:36 Kidney/Bladde r Surgery completed Not Available [facility] 11/23/2022 02:46:36 Imaging Results None recorded. Procedure Notes None recorded. Medical Equipment None Reported. Allergies Allergen ID Allergen Name Allergen Category Reaction Reaction Severity Criticality Documentation Date Start Date Code Code System Note Provider Name and Address Organization Details Recorded Time 5337 aspirin medicatio n hives Not available Not available 11/23/2022 1191 RxNorm Not Available [facility] 3 03:10:17 Medications Name Sig Start Date Stop Date Status Note LastModified by Organization Details LastModified Time atorvastati n 40 mg tablet TAKE 1 TABLET BY MOUTH EVERY DAY active Not Available Not Available No t Available prednisone 10 mg tablet take 30x2,20x2 ,10x2 04/04 completed Not Available Not Available Not Available tizanidine 2 mg tablet TAKE 1 TABLET BY MOUTH EVERY DAY FOR 10 DAYS 11/13 completed Not Available Not Available Not Available pravastatin 40 mg tablet TAKE ONE TABLET BY MOUTH ONE TIME DAILY active Not Available Not Available No t Available ampicillin 500 mg capsule Take 1 capsule 3 times a day by oral route. active Not Available Not Available No t Available cephalexin 250 mg capsule TAKE 1 CAPSULE BY MOUTH AT BEDTIME active Not Available Not Available No t Available hydrocodone 5 mg-acetamin ophen 325 mg tablet TAKE 1 TABLET BY MOUTH THREE TIMES A DAY NEEDED active Not Available Not Available No t Available alclometaso ne 0.05 % topical cream 03/15 completed Not Available Not Available Not Available penicillin V potassium 500 mg tablet 06/17 completed Not Available Not Available Not Available hydralazine 25 mg tablet Take 1 tablet 3 times a day by oral route as directed for 30 days. active Not Available Not Available No t Available amlodipine 2.5 mg tablet 03/09 completed Not Available Not Available Not Available nifedipine ER 30 mg tablet,exte nded release TAKE 1 TABLET BY MOUTH EVERY DAY active Not Available Not Available No t Available acetaminoph en 300 mg-codeine 30 mg tablet Take 1 tablet twice a day by oral route. active Not Available Not Available No t Available ciprofloxac in 250 mg tablet Take 1 tablet every 12 hours by oral route. 08/25 completed Not Available Not Available Not Available amlodipine 5 mg tablet TAKE 1 TABLET BY MOUTH TWICE A DAY active Not Available Not Available No t Available trimethopri m 100 mg tablet TAKE 1 TABLET BY MOUTH TWICE A DAY 11/12 completed Not Available Not Available Not Available ciprofloxac in 500 mg tablet TAKE 1 TABLET BY MOUTH TWICE A DAY 07/27 completed Not Available Not Available Not Available sulfamethox azole 800 mg-trimetho prim 160 mg tablet Take 1 tablet every 12 hours by oral route for 7 days. 01/05 completed Not Available Not Available Not Available pravastatin 80 mg tablet TAKE 1 TABLET BY MOUTH ONCE DAILY 12/22 completed Not Available Not Available Not Available ciprofloxac in 0.3 % eye drops 07/07 completed Not Available Not Available Not Available meclizine 25 mg tablet TK 1 T PO TID PRF DIZZINESS 03/09 completed Not Available Not Available Not Available cyanocobala min (vit B-12) 1,000 mcg/mL injection solution Inject 1 mL every month by subcutane ous route. 2022 active Not Available Not Available Not Avai lable metformin 1,000 mg tablet TAKE 1/2 (ONE-HALF ) TABLET BY MOUTH TWICE DAILY active Not Available Not Available No t Available morphine ER 15 mg tablet,exte nded release 03/15 completed Not Available Not Available Not Available hydrocodone 5 mg-acetamin ophen 500 mg tablet ONE TABLET TID PRN active Not Available Not Available No t Available hydralazine 50 mg tablet Take 1 tablet 3 times a day by oral route for 30 days. active Not Available Not Available No t Available lisinopril 5 mg tablet 02/14 completed Not Available Not Available Not Available gabapentin 100 mg capsule Take 2 capsules every day by oral route. active Not Available Not Available No t Available [employer] active Not Available Not Available Not Available Viagra 100 mg tablet Take 1 tablet every day by oral route for 4 days. 11/13 completed Not Available Not Available Not Available levofloxaci n 500 mg tablet TK 1 T PO D 12/14 completed Not Available Not Available Not Available methylpredn isolone 4 mg tablets in a dose pack Take 1 dose pk by oral route. 10/10 completed Not Available Not Available Not Available colchicine 0.6 mg tablet Take 1 tablet every day by oral route. active Not Available Not Available No t Available cefdinir 300 mg capsule TAKE 1 CAPSULE BY MOUTH EVERY 12 HOURS FOR 10 DAYS 06/21 completed Not Available Not Available Not Available diazepam 5 mg tablet 03/09 completed Not Available Not Available Not Available amoxicillin 875 mg-potassiu m clavulanate 125 mg tablet Take 1 tablet every 12 hours by oral route for 7 days. 07/04 completed Not Available Not Available Not Available Ventolin HFA 90 mcg/actuati on aerosol inhaler USE 2 PUFFS 4 TIMES A DAY NEEDED FOR COUGH 11/12 completed Not Available Not Available Not Available Pneumovax-2 3 25 mcg/0.5 mL injection syringe ADM 0.5ML IM UTD 07/04 completed Not Available Not Available Not Available nitrofurant oin monohydrate /macrocryst als 100 mg capsule TAKE 1 CAPSULE BY MOUTH TWICE A DAY 07/27 completed Not Available Not Available Not Available Vytorin 10 mg-20 mg tablet 10/08 completed Not Available Not Available Not Available Januvia 50 mg tablet TAKE 1 TABLET BY MOUTH EVERY DAY active Not Available Not Available No t Available Bystolic 2.5 mg tablet Take 1 tablet every day by oral route. 11/08 completed Not Available Not Available Not Available nebivolol 5 mg tablet TAKE 1/2 TABLET BY MOUTH EVERY DAY active Not Available Not Available No t Available Vitamin D 5,000 unit tablet Take by oral route. 2017 active Not Available Not Available Not Avai lable GaviLyte-G 236 gram-22.74 gram-6.74 gram-5.86 gram oral solution 07/04 completed Not Available Not Available Not Available Suprep Bowel Prep Kit 17.5 gram-3.13 gram-1.6 gram oral solution 10/08 completed Not Available Not Available Not Available Senior Probiotic 2015 active Not Available Not Available Not Avai lable Accu-Chek FastClix Lancing Device kit U TO TEST BS BID active Not Available Not Available No t Available Accu-Chek FastClix Lancing Device USE TO TEST BLOOD GLUCOSE BID active Not Available Not Available No t Available Accu-Chek SmartView Test Strips USE 1 STRIP TO CHECK GLUCOSE ONCE DAILY active Not Available Not Available No t Available Accu-Chek Ginny TEST UTD 03/13 completed Not Available Not Available Not Available Movantik 25 mg tablet 03/15 completed Not Available Not Available Not Available naloxone 4 mg/actuatio n nasal spray DIRECTED active Not Available Not Available No t Available Xtampza ER 9 mg capsule sprinkle 03/15 completed Not Available Not Available Not Available Fluzone High-Dose [id number] (PF) 180 mcg/0.5 mL intramuscul ar syringe ADM 0.5ML IM UTD 07/04 completed Not Available Not Available Not Available Accu-Chek Fastclix Lancet Drum USE 1 TO CHECK GLUCOSE TWICE DAILY active Not Available Not Available No t Available Vitals Date Recorded Body height Body mass index (BMI) Body weight Body temperature Heart rate Systolic And Diastolic Provider Name and Address Organization Details Last Updated DateTime 3 182.88 cm 26 kg/m2 11803.7 4 g 97.9 [degF] 62 /min 138/72 mm[Hg] FRANSICO Roca [place] [employer] [facility] 3 10:11:26 Date Recorded Body height Provider Name an d Address Organization Details Last Updated DateTime 01/26/2023 182.88 cm Francine Bermudez RN [facility] [employer] [facility] 01/26/2023 09:38:53 Date Recorded Body height Body mass index (BMI) Body weight Body temperature Heart rate Oxygen saturation Oxygen saturation in Arterial blood by Pulse oximetry Systolic And Diastolic Provider Name and Address Organization Details Last Updated DateTime 182.88 cm 25.5 kg/m2 99377.3 7 g 97.5 [degF] 66 /min 98 % 98 % 132/80 mm[Hg] Rosalia Rodriguez MA [facility] [employer] [facility] 3 10:05:01 Date Recorded Body height Provider Name an d Address Organization Details Last Updated DateTime 07/27/2023 182.88 cm FRANSICO Roca [facility] [employer] [facility] 07/27/2023 11:15:50 Social History Question Answer Notes LastModified by Organization Details LastModified Time Tobacco Smoking Status Former Smoker quit 2004 Not Available [facility] 11/23/2022 02:31:15 Do You Have An Advance Directive? Yes [id number] Information not available 11/23/2022 Are You Blind Or Do You Have Difficulty Seeing? No [id number] Information not available 11/23/2022 What Is Your Level Of Caffeine Consumption? Occasional [id number] Information not available 11/23/2022 How Much Tobacco Do You Chew? None [id number] Information not available 11/23/2022 In The 14 Days Before Symptom Onset, Have You Had Close Contact With A Laboratory-confi rmed COVID-19 While That Case Was Ill? No [id number] Information not available 11/23/2022 In The 14 Days Before Symptom Onset, Have You Had Close Contact With A Person Who Is Under Investigation For COVID-19 While That Person Was Ill? No MIGRATION.0301 [id number] Information not available 11/23/2022 Are You Deaf Or Do You Have Serious Difficulty Hearing? No MIGRATION.0301 217632 Information not available 11/23/2022 What Type Of Diet Are You Following? DIABETIC MIGRATION.0301 688334 Information not available 11/23/2022 Which Illicit Or Recreational Drugs Have You Used? None MIGRATION.0301 518886 Information not available 11/23/2022 What Is The Highest Grade Or Level Of School You Have Completed Or The Highest Degree You Have Received? [id number] MIGRATION.0301 234828 Information not available 11/23/2022 Have There Been Any Changes To Your Family Or Social Situation? No MIGRATION.0301 606008 Information not available 11/23/2022 What Is The Fluoride Status Of Your Home? Unknown MIGRATION.0301 106533 Information not available 11/23/2022 When Did You Quit Smoking? 18+yearssincelastci dante MIGRATION.0301 937137 Information not available 11/23/2022 Are There Any Guns Present In Your Home? Yes MIGRATION.0301 858272 Information not available 11/23/2022 Do You Use Insect Repellent Routinely? No MIGRATION.0301 627294 Information not available 11/23/2022 Where Do You Live? [place]House MIGRATION.030 377568 Information not available 11/23/2022 Do You Have A Medical Power Of Identification And Records Commander? Yes MIGRATION.0301 127033 Information not available 11/23/2022 What Was The Date Of Your Most Recent Tobacco Screening? 07/27/2023 [email or web address] Information not available 07/27/2023 Do You Have Any Pets? No MIGRATION.0301 824271 Information not available 11/23/2022 What Is Your Relationship Status? MIGRATION.0301 566451 Information not available 11/23/2022 Do You Use Your Seat Belt Or Car Seat Routinely? Yes MIGRATION.0301 266082 Information not available 11/23/2022 Do You Have Smoke And Carbon Monoxide Detectors In Your Home? Yes MIGRATION.0301 227282 Information not available 11/23/2022 At What Age Did You Start Smoking Tobacco? 15 MIGRATION.0301 438701 Information not available 11/23/2022 Are You Passively Exposed To Smoke? No MIGRATION.0301 290651 Information not available 11/23/2022 Are There Any Smokers In Your House? No MIGRATION.0301 335323 Information not available 11/23/2022 How Much Tobacco Do You Smoke? No MIGRATION.0301 368795 Information not available 11/23/2022 What Types Of Sporting Activities Do You Participate In? None MIGRATION.0301 043005 Information not available 11/23/2022 Do You Use Sunscreen Routinely? No MIGRATION.0301 371135 Information not available 11/23/2022 Has Tobacco Cessation Counseling Been Provided? No MIGRATION.0301 360692 Information not available 11/23/2022 Have You Recently Traveled Abroad? No MIGRATION.0301 554703 Information not available 11/23/2022 Do You Have Difficulty Walking Or Climbing Stairs? No MIGRATION.0301 970577 Information not available 11/23/2022 Do You Have Any Dietary Restrictions? No MIGRATION.0301 019148 Information not available 11/23/2022 Sex: Male Functional Status Question Answer Note LastModified by [employer] ion Details LastModified Time Do you use any illicit or recreational drugs? No MIGRATION.656101 6205 Information not available 11/23/2022 Do you or have you ever used any other forms of tobacco or nicotine? No MIGRATION.245681 7025 Information not available 11/23/2022 What is your level of alcohol consumption? None MIGRATION.016949 9687 Information not available 11/23/2022 Do you or have you ever used smokeless tobacco? Never used smokeless tobacco MIGRATION.000578 7013 Information not available 11/23/2022 Do you have transportation difficulties? No MIGRATION.989982 4484 Information not available 11/23/2022 Are you able to walk? YESWOREST MIGRATION.084328 4824 Information not available 11/23/2022 Do you have difficulty doing errands alone? No MIGRATION.938225 7150 Information not available 11/23/2022 Are you able to care for yourself? Yes MIGRATION.815589 7281 Information not available 11/23/2022 What is your occupation? retired MIGRATION.825600 3384 Information not available 11/23/2022 Do you have difficulty dressing or bathing? No MIGRATION.801273 7357 Information not available 11/23/2022 Do you or have you ever used e-cigarettes or vape? Never used electronic cigarettes MIGRATION.423672 4420 Information not available 11/23/2022 What is your exercise level? Heavy MIGRATION.047605 5378 Information not available 11/23/2022 Mental Status Question Answer Note LastModified by [employer] ion Details LastModified Time Do you feel stressed (tense, restless, nervous, or anxious, or unable to sleep at night)? [id number] MIGRATION.03480973 26 Information not available 11/23/2022 Do you have difficulty concentrating, remembering or making decisions? No MIGRATION.69729759 26 Information not available 11/23/2022 Family History Relationship Description Onset Age of this Age Resolved Age Notes LastModified by Organization Details LastModified Time Paternal Grandmother Diabetes mellitus MIGRATION.277 [id number] Not available 11/23/2022 02:46:38 Father Essential hypertension MIGRATION.671 [id number] Not available 11/23/2022 02:46:38 Mother Malignant tumor of colon MIGRATION.213 [id number] Not available 11/23/2022 02:46:38 Medical History Condition Response NERVE DISEASE Y BLINDNESS N RHEUMATIC FEVER N KIDNEY STONES N BLADDER PROBLEMS N OTHER # 1 Y POLIO N LUNG DISEASE/DISORDER N RADIATION / CHEMOTHERAPY N COPD N Other # 2 Y BLOOD DISEASES N SURGERY N EAR OR HEARING PROBLEMS N MUMPS N BOWEL PROBLEMS N DEPRESSION (INCLUDING POST ) N STROKE/TIA N ULCERS N BENIGN PROSTATIC HYPERPLASIA N MEASLES N MYOCARDIAL INFARCTION N OBESITY N GERD/NAUSEA N ANEURYSM N URINARY/BLADDER/KIDNEY PROBLEMS Y INPATIENT PSYCH CARE N CORONARY ARTERY DISEASE (CAD) N ADDICTION CONCERNS N ENDOMETRIOSIS N Impotence N USE OF BLOOD THINNERS N SKIN PROBLEMS N GASTROINTESTINAL DISORDER N PERIPHERAL VASCULAR DISEASE N MUSCLE,JOINT OR BONE PROBLEMS N GASTROINTESTINAL BLEEDING N BLOOD CLOTS N ASTHMA N CATARACTS N ERECTILE DYSFUNCTION N VARICOSITIES N GI PROBLEMS N Low Testosterone N INFERTILITY N AIDS/HIV N LIVER DISEASE N MALE HYPOGONADISM N HYPERTENSION Y Deficiency Y ANXIETY DISORDER N BLOOD TRANSFUSION N ANEMIA/BLOOD DISORDER N CHRONIC EAR INFECTIONS N BRONCHITIS N TUBERCULOSIS N GLAUCOMA N FOOT PROBLEM N DIVERTICULITIS N SLEEP APNEA N CHICKENPOX N INFECTIOUS DISEASE N HEART ARRHYTHMIA N PROSTATE N INSOMNIA N HIGH CHOLESTEROL / HYPERLIPIDEMIA Y HYPERTHYROIDISM N EYE PROBLEMS N NEUROLOGICAL PROBLEMS N EDEMA N CHRONIC PAIN SYNDROME N HYPOTHYROIDISM N CAROTID BLOCKAGE N CONSTIPATION N BACK / NECK PROBLEMS N HAVE YOU BEEN [facility]PITAL[facility] THE PAST [facility] ? N ATHEROSCLEROSIS N BREAST PROBLEMS N DIALYSIS N ECZEMA N OSTEOPOROSIS N ARTHRITIS Y NO SIGNIFICANT PAST MEDICAL HISTORY N APPENDICITIS N DIABETES, TYPE BAD TEETH N ENT N HEARTBURN / REFLUX N AUTISM SPECTRUM DISORDER (ASD) N HEPATITIS / LIVER DISEASE N PULMONARY DISEASE N GOUT Y SLEEP DISORDER N ALZHEIMER'S DISEASE N Brain Problems N HERPES N DEMENTIA N HEADACHES/MIGRAINES N SEIZURES/EPILEPSY N VASCULAR DISEASE N PACEMAKER N Blood Disorder N DIZZINESS Y HEART DISEASE/HEART PROBLEMS N KIDNEY DISEASE N MULTIPLE SCLEROSIS N CARDIAC ARRHYTHMIA N CANCER: SPECIFY Y ANESTHESIA COMPLICATIONS N ATRIAL FIBRILLATION N Gall Stones N PULMONARY EMBOLISM N AUTOIMMUNE DISEASE N Immunizations Vaccine Type Date Status Note Provider Nam e and Address Organization Details Recorded Time COVID-19, mRNA, LNP-S, PF, 30 mcg/0.3 mL dose 1 completed Not Available [facility] 04/18/2023 09:13:09 zoster recombinant 1 completed Not Available [facility] 04/18/2023 09:13:09 zoster recombinant 1 completed Not Available [facility] 04/18/2023 09:13:09 COVID-19, mRNA, LNP-S, PF, 30 mcg/0.3 mL dose 1 completed Not Available [facility] 04/18/2023 09:13:09 Influenza, split virus, quadrivalent, preservative 0 completed Not Available [facility] 04/18/2023 09:13:09 influenza, unspecified formulation 8 completed Not Available [facility] 04/18/2023 09:13:09 Influenza, high-dose, trivalent, PF 7 completed Not Available [facility] 04/18/2023 09:13:09 pneumococcal polysaccharide PPV23 7 completed Not Available [facility] 04/18/2023 09:13:09 COVID-19, mRNA, LNP-S, PF, 30 mcg/0.3 mL dose 1 completed Not Available [facility] 04/18/2023 09:13:09 Influenza, high-dose, quadrivalent, PF 2 completed Not Available [facility] 04/18/2023 09:13:09 Influenza, high-dose, quadrivalent, PF 1 completed Not Available [facility] 04/18/2023 09:13:09 Pneumococcal conjugate PCV 13 7 completed Not Available [facility] 04/18/2023 09:13:09 Influenza, high-dose, quadrivalent, PF 3 completed FRANSICO Alvarez, [place] - [place] [employer] [facility] 07/18/2023 12:20:11 Past Encounters Encounter ID Performer Location Encounter Start Date Encounter Closed Date Diagnosis/Indication Diagnosis SNOMED-CT Code Diagnosis ICD10 Code Diagnosis Note [id number] Xander Pace MD [facility] [place] [address] [place] [address] y , [place] [address] 12/08/2020 00:00:00 12/08/2020 22:10:17 [id number] Xander Pace MD [facility] [place] [address] [place] [address] y , [place] [address] 06/15/2021 00:00:00 06/15/2021 22:55:23 [id number] Xander Pace MD [facility] [place] [address] [place] [address] y , [place] [address] 12/14/2021 00:00:00 01/08/2022 11:12:28 [id number] Xander Pace MD [facility] [place] [address] [place] [address] y , [place] [address] 06/21/2022 00:00:00 07/24/2022 15:09:30 [id number] Xander Pace MD [facility] [place] [address] [place] [address] y , [place] [address] 12/22/2022 09:56:16 12/22/2022 10:48:44 Essential hypertension 69072510 I10 E11.9 Type 2 richy betes mellitus without complication 365923786 E11.9 Cobalamin deficiency 190 305621 E53.8 Screening for malignant neoplasm of prostate 388039186 Z12.5 Dyslipidemia 851510450 E 78.5 Serum rinku min B12 below reference range 362575825 R79.89 Clear cell carcinoma of kidney 685559295 C64.9 Gout 64733076 M10.9 Neuropathy 304882905 G62 .9 Rheumatoid arthritis 698 88142 M06.9 [id number] Xander Pace MD [facility] [place] [address] [place] [address] y , [place] [address] 01/26/2023 09:30:55 01/26/2023 09:43:39 Cobalamin deficiency 007178987 E53.8 Serum rinku min B12 below reference range 747812149 R79.89 [id number] Xander Pace MD [facility] [place] [address] [place] [address] [place] [address] 03/07/2023 09:30:12 03/07/2023 09:38:42 Cobalamin deficiency 139852652 E53.8 [id number] Xander Pace MD [facility] [place] [address] [place] [address] [place] [address] 05/02/2023 09:49:22 05/02/2023 10:50:36 Dyslipidemia 305189913 E78.5 Essential hypertension 38907687 I10 E11.9 Serum rinku min B12 below reference range 786529788 R79.89 Clear cell carcinoma of kidney 321445300 C64.9 Gout 42498370 M10.9 Rheumatoid arthritis 698 90098 M06.9 Type 2 richy betes mellitus without complication 812803029 E11.9 [id number] Xander Pace MD [facility] Internal [facility] [address] [place] [address] [place] [address] 07/27/2023 10:55:24 09/22/2023 12:56:02 Health Concerns Section Related Observation LastModified by Organization Detai ls LastModified Time None Recorded Concern Status LastModified by Organization Details LastModified Time None Recorded Advance Directives Directive Y: Payers Insurance Date Sequence Insurance Name Policy Number Policy [place] Covered Member ID [place] Member ID Guarantor Name 02/01/2024 1 [place] Calin Lerma [id number] Calin Lerma 02/01/2024 2 [employer] [place]MEDIC[place] SUPPLEMENT) Calin Lerma [id number] Calin Lerma Notes Date Note Type Note Provider Name and Address Organization Details Recorded Time 12/23/19 23 text/htm l Hypertension blood pressure 138/72 no headache no dizzinessLow vitamin B 12 level he takes supplementationDyslipidemia does try to follow a low-fat dietDiabetes no polyphagia polydipsia sugars around 120-140Rheumatoid arthritis because of his history of cancer he is not taking any immuno modulating agentsHistory of renal cell carcinoma has followed with urology no new symptoms Xander Pace MD [address] [address], [place], [address], [employer] [facility] [employer] [facility] 12/25/2022 11:40:32 05/02/20 23 text/htm l Hypertension blood pressure no headache no dizzinessLow vitamin B 12 level he takes supplementationDyslipidemia does try to follow a low-fat dietDiabetes no polyphagia polydipsia sugars around 120-140Rheumatoid arthritis because of his history of cancer he is not taking any immuno modulating agentsHistory of renal cell carcinoma has followed with urology no new symptoms Xander Pace MD [address] [facility], [place], [address], [employer] [facility] [employer] 05/14/2023 21:59:24
[2025-04-15 09:50] LABS: Hematocrit 43.5 % (42.0-52.0); Hemoglobin 14.7 g/dL (14.0-18.0); Immature Granulocyte Percent A 0.2 % (0-0.5); Lymphocytes Absolute Auto 1.50 K/mm3 (0.9-3.2); Mean Corpuscular HGB Conc 33.8 g/dl (32-36); Mean Corpuscular Hemoglobin 30.6 pg (26-34); Mean Corpuscular Volume 90.4 fl (80-100); Nucleated Red Blood Cells Absolute Auto 0.000 K/mm3 (0.0-0.012); Nucleated Red Blood Cells Perc 0.0 % (0.0-0.2); Platelet Count Result 189 k/mm3 (150-375); Red Blood Count 4.81 M/mm3 (4.6-6.20); White Blood Count 5.0 K/mm3 (4.5-10.0)
[2025-04-15 10:29] LABS: Anion Gap 10 mmol/L (4-12); Blood Urea Nitrogen 22 mg/dL (9-20); Carbon Dioxide 25 mmol/L (22-30); Chloride 101 mmol/L (98-107); Estimated Glomerular Filt Rate 55; Glucose 131 mg/dL (65-110); Potassium 4.6 mmol/L (3.4-5.0); Sodium 136 mmol/L (137-145)
[2025-04-15 10:30] LABS: Alanine Aminotransferase 24 U/L (6-50); Albumin Level 4.7 g/dL (3.5-5.1); Alkaline Phosphatase 51 U/L (38-126); Aspartate Amino Transferase 37 U/L (17-59); Bilirubin,Total 0.5 mg/dL (0.2-1.3); Calcium 9.9 mg/dL (8.4-10.2); Total Protein 8.4 g/dL (6.3-8.2)
[2025-04-15 10:45] LABS: Immunoglobulin A 91 mg/dL (70-400); Immunoglobulin G 1668 mg/dL (700-1600); Immunoglobulin M 44 mg/dL (40-230)
[2025-04-16 13:08] LABS: Albumin 3.8 g/dL (2.9-4.4); Alpha-1-Globulin 0.3 g/dL (0.0-0.4); Alpha-2-Globulin 0.9 g/dL (0.4-1.0); Gamma Globulin 0.6 g/dL (0.4-1.8)
== END 2025-04-15 09:34 | disposition home or self-care (01) ==
PROVIDERS: PCP Family Medicine; Visit Provider Internal Medicine Hematology & Oncology
DX: D47.2 Monoclonal gammopathy (principal)
CPT/HCPCS: 36415; 80053; 82784; 84165; 85025

== ENCOUNTER 2025-05-05 08:29 | Outpatient (CLI) | payer MEDICARE, SELFPAY ==
--- OUTSIDE RECORDS SUMMARY | 2025-05-05 08:33 | XMS_ITS | Encounter Summary ---
Author Organization [facility] Address [address] [facility] [place] [address] Care Team Providers Care Family Medicine Physician Name Role Phone Unavailable Primary Care Provider Unavailabl e Encounter Details Date Type Department Care Team (Late st Contact Info) Description 05/08/2020 Lab Requisition [facility] D[facility] Lab [address] [facility], [place] [address] Rom Queen MD [address] [place] [address] Social History Tobacco Use Types [...] AM CDT) Case Report Dermatopathology Report Case: [id number] Authorizing Provider: Rom Queen MD Collected: 05/06/2020 12:00 AM Ordering Location: [facility] D[facility] Lab Received: 05/08/2020 02:22 PM Pathologist: Gloria Nieves MD Specimen: Skin, left middle finger 0 3:42 PM CDT DERMATOPATHOLOGY LABORATORY Final Diagnosis Specimen A. 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 Joya Spring. These tests need not be, and therefore are not, approved by the [place] Food and Drug Administration. The tests are used for clinical purposes. Billing Codes Specimen Charges Stain Charges 20679 1 0 3:42 PM CDT DERMATOPATHOLOGY LABORATORY Embedded Images 0 3:42 PM CDT DERMATOPATHOLOGY LABORATORY Pathology/Cytolog y TISSUE SPECIMEN FROM SKIN / Unknown 05/06/2020 05/08/2020 2:22 PM CDT us Rom Queen MD LAB - PATHOLOGY/CYTOLOGY ORD ERABLES Final Result DERMATOPATHOLOGY LABORATORY [facility] - Department of Dermatology Research Epidemiologist [facility]/[address] [address], [facility] [phone] documented in this encounter Visit Diagnoses Not on filedocumented in this encounter
--- OUTSIDE RECORDS SUMMARY | 2025-05-05 08:33 | XMS_ITS | Clinical Summary ---
Author Organization [facility] Address [address] [place] [address] Phone Care Team Providers Care Purification Director Name Role Phone Silvino Pace MD Primary Care Provider [phone] Allergies Active Allergy Reactions Criticality Noted Date [...] AM MDT Legal Sex Male 7:53 PM [facility] Gender Identity Male 04/28/2021 7:15 AM MDT [...] Advance Directives For more information, please contact: [phone] (7AM - 4PM [facility], 7 days a week) Documents on File Type Date Recorded Patient Lead Android Developer Expl anation Power of Maintenance Supervisor Electrical 05/10/2021 2:11 PM Calin [email or web address] Care Teams Purification Director Relationship Specialty Start Date End Date Silvino Pace MD [address] [address] PCP - General Family Medicine 12/30/18
--- OUTSIDE RECORDS SUMMARY | 2025-05-05 08:33 | XMS_ITS | Clinical Summary ---
Author Organization [facility] Address [address] [place] [address] Phone Care Team Providers Care Electro Winning Operator Name Role Phone Jenna Alfaro MD Primary Care Provider [phone] Allergies Active Allergy Reactions Criticality Noted Date [...] mg by mouth 4 times daily. Active ezetimibe (ZETIA) 10 mg tablet Take 10 mg by mouth daily. 5 Active terbinafine HCL (LamISIL) 250 mg tablet Take 250 mg by mouth. 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 Encounters Date Type Department Care Team Description 04/25/2025 8:45 AM CDT Office Visit [facility] Oncology and Hematology [facility] [address] [place] [address] Aureliano Parks MD MGUS (monoclonal gammopathy of unknown significance) (Primary Dx) 04/17/2025 Orders Only [facility] Oncology and [facility] [address] [place] [address] Aureliano Parks MD 02/13/2025 External Device Data STL ABSTRACTION Provider, Abstract 02/13/2025 External Device Data STL ABSTRACTION Provider, Abstract 02/12/2025 External Device Data STL ABSTRACTION Provider, Abstract [...] Sign Reading Time Taken Comments Blood Pressure 138/73 04/25/2025 8:35 AM CDT Pulse 63 04/25/2025 8:35 AM CDT Temperature 36.3 C (97.4 F) 04/25/2025 8:35 AM CDT Respiratory Rate 15 04/25/2025 8:35 AM CDT Oxygen Saturation 97% 04/25/2025 8:35 AM CDT Inhaled Oxygen Concentration - - Weight 87.6 kg (193 lb 3.2 oz) 04/25/2025 8:35 A M CDT Height 188 cm (6' 2) 04/26/2022 9:45 AM CDT Body Mass Index 24.81 04/26/2022 9:45 AM CDT Plan of Treatment Upcoming Encounters Date Type Department Care Team (Late st Contact Info) Description 05/01/2026 8:30 AM CDT Office Visit [facility] Oncology and Hematology - [place] [address] [facility] [address] [place] [address] Aureliano Parks MD [address] [facility] [address] [place] [address] Health Maintenance Due Date Last [...] (A AA) Screening 02/25/2017 INFLUENZA VACCINE (#1) 2025 , 07/05/2022, 07/20/2021, Additional history exists DIABETES HBA1C Q 6 MONTHS 05/07/20252024, 01/17/2024, 10/12/2023, Additional history exists DTAP/TDAP/TD VACCINES (2 - T d or Tdap) 03/17/2031 03/17/2021 COLORECTAL SCREENING 05/18/2032 05/18/2022, 05/18/2022, 04/24/2017, Additional history exists Colorectal Cancer Screening 05/18/2032 ZOSTER VACCINE Completed 05/17/2021, 0809/2020, 03/17/2021, Additional history exists PNEUMOCOCCAL VACCINE 50+ YEARS Completed 0 03/04/2022, 06/28/2020, 10/02/2018, Additional history exists Procedures Procedure Name Priority Date/Time Associated Diagnosis Comments COMPREHENSIVE METABOLIC PANEL Routine 04/15/2025 2:12 PM CDT KAPPA/LAMBDA LIGHT CHAINS Routine 2024 12:40 PM CDT from Last 3 Months Results * COMPREHENSIVE METABOLIC PANEL (04/15/2025 2:12 PM CDT) Blood Aureliano Parks MD CHEMISTRY ORDERABLES Final Resu lt * KAPPA/LAMBDA, FREE LIGHT CHAINS (04/15/2025 12:40 PM CDT) Blood Aureliano Parks MD CHEMISTRY ORDERABLES Final Resu lt from Last 3 Months Insurance MEDICARE PART A [facility] [id number] Care Teams Electro Winning Operator Relationship Specialty Start Date End Date Jenna Alfaro MD [facility] [address] [place] [address] PCP - General Family Practice 04/25/24
--- OUTSIDE RECORDS SUMMARY | 2025-05-05 08:33 | XMS_ITS | Clinical Summary ---
Author Organization [facility] Address [address] [facility] [place] [address] Care Team Providers Care Magnetic Prospector Name Role Phone Unavailable Primary Care Provider Unavailabl e Source Comments [facility],non-owned Affiliates and Associated Physician Practices is amultiple site organization consisting of ambulatory clinics and hospital sitesin [place], [place], [place] and [place]. This disclosure is being madepursuant to the Care Everywhere program and may not contain all information available regarding this patient. Last updated 18.[facility] Social History Tobacco Use Types Packs/Day Years [...]
--- OUTSIDE RECORDS SUMMARY | 2025-05-05 08:33 | XMS_ITS | Clinical Summary ---
Author Organization [facility] Address [facility] [place] [address] Care Team Providers Care Optical Instrument Assembler Name Role Phone Unavailable Primary Care Provider [...]
--- OUTSIDE RECORDS SUMMARY | 2025-05-05 08:33 | XMS_ITS | Continuity of Care Document ---
Author Organization [facility] Address [address] [place] [address] Phone Care Team Providers Care Frame Maker Name Role Phone Balderas OD, Dariel Unavailable Unavailable Procedures Procedure Date Office/outpatient Visit, Est Office/outpatient Visit, Est Office/outpatient Visit, [facility] Advance Directives Directive Yes / No Effective Date File Name No Information Encounters Encounter Description Practice Location Reason(s) For Visit Diagnoses Date Provider Providers Copied on Encounter Office/outpat ient Visit, [facility], [address] [place] [address] [address], [place], [place], [id number], tel:[phone] [facility] No Information Aug-0 9-200 7 Balderas OD Dariel. [address] , [address], [place], [place], [facility], . tel:[phone] Office/outpat ient Visit, [facility], [address] [place] [address] [address], [place], [place], [id number], [place] tel:[phone] [facility] No Information Apr-0 2-200 7 Balderas OD Dariel. [address] [facility] , [address], [place], [place], [facility], . tel:[phone] Office/outpat ient Visit, [facility], [address], [place], [place], [id number], tel:[phone] [facility] No Information Xavi-3 1-200 7 Balderas OD Dariel. [address] , [address], [place], [address], [place]. tel:[phone] Family History Family Member Type Diagnosis Age [...]
[2025-05-05 13:21] LABS: Albumin Level 4.4 g/dL (3.5-5.1); Anion Gap 10 mmol/L (4-12); Blood Urea Nitrogen 19 mg/dL (9-20); Calcium 9.9 mg/dL (8.4-10.2); Carbon Dioxide 24 mmol/L (22-30); Chloride 103 mmol/L (98-107); Estimated Glomerular Filt Rate 57; Glucose 111 mg/dL (65-110); Potassium 4.5 mmol/L (3.4-5.0); Sodium 137 mmol/L (137-145)
[2025-05-05 17:00] LABS: Total Protein Urine Random 59 mg/dL; Ur Ttl Prot Creatinine Ratio 1.08 mg/mg (0-0.20)
== END 2025-05-05 08:30 | disposition home or self-care (01) ==
LOC: ANHGOSHLAB 08:31
PROVIDERS: PCP Family Medicine; Visit Provider Internal Medicine Nephrology
DX: I12.9 Hypertensive chronic kidney disease with stage 1 through stage 4 chronic kidney disease, or unspecified chronic kidney disease (principal); E11.22 Type 2 diabetes mellitus with diabetic chronic kidney disease; N18.2 Chronic kidney disease, stage 2 (mild); Z90.5 Acquired absence of kidney
CPT/HCPCS: 36415; 80069; 82570; 84156

== ENCOUNTER 2025-05-14 10:39 | Outpatient (CLI) | payer MEDICARE, SELFPAY ==
--- NOTE | ~2025-05-14 | CT_ITS ---
Non-contrast CT scan of the Abdomen and Pelvis Clinical indication: Change in bowel habit Technique: 2.5 mm axial scans were obtained through the abdomen and pelvis without intravenous or oral contrast. Dose reduction technique was used on this scan by utilizing automated exposure control and iterative reconstruction technique. The dose-length product (DLP) was 606.98 mGy-cm. Findings: Images through the lung bases reveal linear scarring at the lingula. Calcified right basilar granulomas are present. Status post right nephrectomy. Left kidney unremarkable. The liver, spleen, pancreas, gallbladder, and adrenals appear normal. There are atherosclerotic calcifications of the aorta. . There is no evidence of bowel obstruction. Images through the pelvis were performed. There is no evidence of ascites or lymphadenopathy. Urinary bladder unremarkable. No pelvic mass. Impression: No significant abnormality seen. Status post right nephrectomy. Reviewed, dictated and finalized at [facility]. Impression: No significant abnormality seen. Status post right nephrectomy.
== END 2025-05-14 10:40 | disposition home or self-care (01) ==
LOC: MICIMG 10:40
PROVIDERS: PCP Family Medicine; Visit Provider Family Medicine
DX: R19.4 Change in bowel habit (principal); Z90.5 Acquired absence of kidney; Z87.19 Personal history of other diseases of the digestive system
CPT/HCPCS: 74176

== ENCOUNTER 2025-06-05 08:27 | Outpatient (CLI) | payer MEDICARE, SELFPAY ==
--- OUTSIDE RECORDS SUMMARY | 2025-06-05 08:52 | XMS_ITS | Clinical Summary ---
Author Organization [facility] Address [address] [place] [address] Phone Care Team Providers Care Finger Buffs Assembler Name Role Phone Silvino Pace MD Primary Care Provider [phone] Allergies Active Allergy Reactions Criticality Noted Date [...] AM MDT Legal Sex Male 7:53 PM [facility] Gender Identity Male 04/28/2021 7:15 [...] Due Date Last Done Comments COVID-19 Vaccine (2024-10 6 season) 2025 06/22/2021, 12/10/2020, 11/17/2020 Influenza Vaccine (#1) 2025 06/25/2018, 2017 Pneumococcal PPSV23/PCV13 65 + Years / Low and Medium Risk Completed 06/28/2017, 06/28/2017, 10/18/2016, Additional history exists Insurance MEDICARE CIG Advance Directives For more information, please contact: [phone] (7AM - 4PM [facility]/[place], 7 days a week) Documents on File Type Date Recorded Patient Commercial Art Instructor Expl anation Power of Nurse'S Assistant 05/10/2021 2:11 PM Calin [email or web address] Care Teams Finger Buffs Assembler Relationship Specialty Start Date End Date Silvino Pace MD [address] [address] PCP - General Family Medicine 12/30/18
--- OUTSIDE RECORDS SUMMARY | 2025-06-05 08:52 | XMS_ITS | Clinical Summary ---
Author Organization [facility] Address [address] [place] [address] Phone Care Team Providers Care Attorney At Law Name Role Phone Jenna Alfaro MD Primary Care Provider [phone] Allergies Active Allergy Reactions Criticality Noted Date [...] Encounters Date Type Department Care Team Description 05/27/2025 External Device Data STL ABSTRACTION Provider, Abstract 04/25/2025 8:45 AM CDT Office Visit [facility] Oncology and Hematology [facility] [address] [place] [address] Aureliano Parks MD MGUS (monoclonal gammopathy of unknown significance) (Primary Dx) 04/17/2025 Orders Only [facility] Oncology and Hematology [facility] [address] [place] [address] Aureliano Parks MD from Last 3 Months Family History Medical [...] Description 05/01/2026 8:30 AM CDT Office Visit [facility] Oncology and Hematology - [place] [address] [place] [address] Aureliano Parks MD [address] [facility] [address] [place] [address] Health Maintenance Due Date Last [...] history exists DIABETES HBA1C Q 6 MONTHS 09/16/20252024, 11/07/2024, 01/17/2024, Additional history exists DTAP/TDAP/TD VACCINES (2 - T d or Tdap) 03/17/2031 03/17/2021 COLORECTAL SCREENING 05/18/2032 05/18/2022, 05/18/2022, 04/24/2017, Additional history exists Colorectal Cancer Screening 05/18/2032 ZOSTER VACCINE Completed 05/17/2021, 08/0 09/2020, 03/17/2021, Additional history exists PNEUMOCOCCAL VACCINE 50+ [...] Months Insurance MEDICARE PART A AND B [facility] Member Subscriber Plan / Payer (Ef fective 2020-Present) Name:Nataliatanner Calin Relation to Subscriber:Self Name:Calin Lerma Payer ID:Not on file Group ID:Not on file Type:Supplemental Address[address] [facility] Care Teams Attorney At Law Relationship Specialty Start Date End Date Jenna Alfaro MD [facility] [facility] [address] [place] [address] PCP - General Family Practice 04/25/24
[2025-06-05 20:15] LABS: Prostate Specific Antigen 1.0 ng/mL (< OR = 4.0)
== END 2025-06-05 08:28 | disposition home or self-care (01) ==
LOC: ANHGOSHLAB 08:28
PROVIDERS: PCP Family Medicine; Visit Provider Student in an Organized Health Care Education/Training Program
DX: Z12.5 Encounter for screening for malignant neoplasm of prostate (principal)
CPT/HCPCS: 36415; 84153; G0103

== ENCOUNTER 2025-06-19 12:46 | Outpatient (CLI) | payer MEDICARE, SELFPAY ==
--- OUTSIDE RECORDS SUMMARY | 2007-05-03 04:13 | XMS_ITS | Continuity of Care Document ---
Author Organization [facility] Address [address] [facility] [address] [place] [address] Phone Care Team Providers Care Tray Service Worker Name Role Phone Balderas OD, Dariel Unavailable Unavailable Procedures Procedure Date Office/outpatient Visit, Est Office/outpatient Visit, Est Office/outpatient Visit, [facility] Advance Directives Directive Yes / No Effective Date File Name No Information Encounters Encounter Description Practice Location Reason(s) For Visit Diagnoses Date Provider Providers Copied on Encounter Office/outpat ient Visit, [facility] [place] [address] [place] [address] [address], [place], [place], [id number], tel:[phone] [facility] No Information Aug-0 9-200 7 Balderas OD Dariel. [address] , [address], [place], [place], [facility], . tel:[phone] Office/outpat ient Visit, [facility] [place], [address] [place] [address] [address], [place], [place], [address], [place] tel:[phone] [facility] No Information Aug-0 2-200 7 Balderas OD Dariel. [address] [facility] , [address], [place], [place], [facility], . tel:[phone] Office/outpat ient Visit, [facility], [address], [place], [place], [address], tel:[phone] [facility] No Information Xavi-3 1-200 7 Balderas OD Dariel. [address] , [address], [place], [address], [place]. tel:[phone] Family History Family Member Type Diagnosis Age At Onset No Information Payers Payer name Insurance type Covered green party ID Authoriza tion(s) No Information Social [...]
--- OUTSIDE RECORDS SUMMARY | 2025-06-19 15:18 | XMS_ITS | Clinical Summary ---
Author Organization [facility] Address [address] [place] [address] Phone Care Team Providers Care Box Maker Paperboard Name Role Phone Jenna Alfaro MD Primary Care Provider [phone] Allergies Active Allergy Reactions Criticality Noted Date [...] Encounters Date Type Department Care Team Description 06/10/2025 External Device Data STL ABSTRACTION Provider, Abstract 05/27/2025 External Device Data STL ABSTRACTION Provider, Abstract 04/25/2025 8:45 AM CDT Office Visit [facility] Oncology and Hematology [facility] [address] [place] [address] Aureliano Parks MD MGUS (monoclonal gammopathy of unknown significance) (Primary Dx) 04/17/2025 Orders Only [facility] Oncology and [facility] [address] [place] [address] Aureliano Parks MD from Last 3 Months [...] Description 05/01/2026 8:30 AM CDT Office Visit [facility] Oncology and Hematology - [place] [address] [facility] [address] [place] [address] Aureliano Parks MD [address] [facility] [address] [place] [address] Health Maintenance Due Date Last [...] Months Insurance MEDICARE PART A AND B [facility] [place] [id number] Care Teams Box Maker Paperboard Relationship Specialty Start Date End Date Jenna Alfaro MD [address] [place] [address] [address] PCP - General Family Practice 04/25/24
--- OUTSIDE RECORDS SUMMARY | 2025-06-19 15:18 | XMS_ITS | Clinical Summary ---
Author Organization [facility] Address [address] [place] [address] Phone Care Team Providers Care Switch Adjuster Name Role Phone Silvino Pace MD Primary Care Provider [phone] Allergies Active Allergy Reactions Criticality Noted Date [...] AM MDT Legal Sex Male 7:53 PM [facility] Gender Identity Male 04/28/2021 7:15 AM [...] Advance Directives For more information, please contact: [phone] (7AM - 4PM [facility]/[place], 7 days a week) Documents on File Type Date Recorded Patient Machine Cage Maker Expl anation Power of Milk Inspector 05/10/2021 2:11 PM Calin [email or web address] Care Teams Switch Adjuster Relationship Specialty Start Date End Date Silvino Pace MD [address] [address] PCP - General Family Medicine 12/30/18
--- OUTSIDE RECORDS SUMMARY | 2025-06-19 15:18 | XMS_ITS | Clinical Summary ---
Author Organization [facility] Address [facility] [place] [address] Care Team Providers Care Vehicle Delivery Worker Name Role Phone Unavailable Primary Care Provider [...] Vaccines (1 of 2) 02/25/2002 COVID-19 Vaccine (1 - 2023-2 5 season) 2025 RSV Immunization or 60+ Years (1 - [...]
[2025-06-20 15:09] LABS: Deamidated Gliadin Abs, IgA 3 units (0-19); Deamidated Gliadin Abs, IgG 3 units (0-19); Immunoglobulin A, Qn 107 mg/dL (61-437)
== END 2025-06-19 12:47 | disposition home or self-care (01) ==
LOC: ANHGOSHLAB 12:48
PROVIDERS: PCP Family Medicine; Visit Provider Nurse Practitioner Family
DX: R19.4 Change in bowel habit (principal); R19.5 Other fecal abnormalities; K92.89 Other specified diseases of the digestive system; R10.9 Unspecified abdominal pain
CPT/HCPCS: 82784; 86231; 86258

== ENCOUNTER 2025-06-24 10:14 | Outpatient (CLI) | payer MEDICARE, SELFPAY ==
--- OUTSIDE RECORDS SUMMARY | 2007-05-03 04:13 | XMS_ITS | Continuity of Care Document ---
Author Organization [facility] Address [address] [place] [address] Phone Care Team Providers Care Tankroom Tender Name Role Phone Balderas OD, Dariel Unavailable Unavailable Procedures Procedure Date Office/outpatient Visit, Est Office/outpatient Visit, Est Office/outpatient Visit, [facility] Advance Directives Directive Yes / No Effective Date File Name No Information Encounters Encounter Description Practice Location Reason(s) For Visit Diagnoses Date Provider Providers Copied on Encounter Office/[place]pat ient Visit, [facility] [place], [address] [place] [address] [address], [place], [place], [id number], tel:[phone] [facility] No Information Aug-0 9-200 7 Balderas OD Dariel. [address] , [address], [place], [place], [facility], . tel:[phone] Office/outpat ient Visit, [facility] [place], [address] [place] [address] [address], [place], [place], [address], [place] tel:[phone] [facility] No Information Aug-0 2-200 7 Balderas OD Dariel. [address] [facility] , [address], [place], [place], [facility], . tel:[phone] Office/outpat ient Visit, [facility], [address], [place], [place], [address], tel:[phone] [facility] No Information Xavi-3 1-200 7 Balderas OD Dariel. [address] , [address], [place], [address], [place]. tel:[phone] Family History Family Member Type Diagnosis Age At Onset No Information Payers Payer name Insurance type Covered alliance party ID Authoriza tion(s) No Information Social History [...]
--- OUTSIDE RECORDS SUMMARY | 2025-06-24 11:03 | XMS_ITS | Clinical Summary ---
Author Organization [facility] Address [facility] [place] [address] Care Team Providers Care Formation Testing Operator Name Role Phone Unavailable Primary Care Provider [...]
--- OUTSIDE RECORDS SUMMARY | 2025-06-24 11:03 | XMS_ITS | Clinical Summary ---
Author Organization [facility] Address [address] [place] [address] Phone Care Team Providers Care Take Off Man Name Role Phone Silvino Pace MD Primary Care Provider [phone] Allergies Active Allergy Reactions Criticality Noted Date [...] AM MDT Legal Sex Male 7:53 PM [facility] Gender Identity Male 04/28/2021 7:15 AM [...] Advance Directives For more information, please contact: [phone] (7AM - 4PM [facility]/[place], 7 days a week) Documents on File Type Date Recorded Patient Nursing Project Coordinator Expl anation Power of Pressfitter 05/10/2021 2:11 PM Calin [email or web address] Care Teams Take Off Man Relationship Specialty Start Date End Date Silvino Pace MD [address] [address] PCP - General Family Medicine 12/30/18
--- OUTSIDE RECORDS SUMMARY | 2025-06-24 11:03 | XMS_ITS | Clinical Summary ---
Author Organization [facility] Address [address] [place] [address] Phone Care Team Providers Care Wire Drawing Setter Name Role Phone Jenna Alfaro MD Primary Care Provider [phone] Allergies Active Allergy Reactions Criticality Noted Date [...] Abstract 04/25/2025 8:45 AM CDT Office Visit [facility] Oncology and Hematology [facility] [address] [place] [address] Aureliano Parks MD MGUS (monoclonal gammopathy of unknown significance) (Primary Dx) 04/17/[address] [facility] Oncology and [facility] [address] [place] [address] Aureliano Parks MD from Last [...] Description 05/01/2026 8:30 AM CDT Office Visit [facility] Oncology and Hematology - [place] [address] [facility] [address] [place] [address] Aureliano Parks MD [address] [facility] [address] [place] [address] Health Maintenance Due Date Last [...] Months Insurance MEDICARE PART A AND B [facility] [place] [id number] Care Teams Wire Drawing Setter Relationship Specialty Start Date End Date Jenna Alfaro MD [address] [place] [address] [address] PCP - General Family Practice 04/25/24
[2025-06-24 11:34] LABS: Toxigenic C. Diff NEGATIVE (NEGATIVE)
[2025-06-26 07:09] LABS: Calprotectin, Fecal 17 ug/g (0-120)
[2025-06-26 15:09] LABS: Pancreatic Elastase, Fecal 377 (>200)
== END 2025-06-24 10:15 | disposition home or self-care (01) ==
PROVIDERS: PCP Family Medicine; Visit Provider Nurse Practitioner Family
DX: K92.89 Other specified diseases of the digestive system (principal)
CPT/HCPCS: 82653; 83993; 87045; 87427; 87493

== ENCOUNTER 2025-07-02 08:59 | Outpatient (CLI) | payer MEDICARE, SELFPAY | END 2025-07-02 09:00 | disposition home or self-care (01) | LOC: ANHLAB 09:07 | PROVIDERS: PCP Family Medicine; Visit Provider Nurse Practitioner Family | DX: R19.4 Change in bowel habit (principal); K92.89 Other specified diseases of the digestive system; R10.9 Unspecified abdominal pain | CPT/HCPCS: 87338 ==

== ENCOUNTER 2025-07-23 00:44 | Day surgery (SDC) | payer MEDICARE, SELFPAY ==
[2025-07-11 13:45] VITALS: BMI 24.6
[2025-07-23 07:46] VITALS: BP 136/68; PULSE 50; RESP 17; O2SAT 99; BMI 23.6
[2025-07-23] MEDS: LACTATED RINGERS 1,000 ML 150 ML IV CONT (07:58)
--- NOTE | 2025-07-23 07:59 | P.PNAN_ITS ---
Anes - Initial Pre Proc Eval Procedure: Operation Date: 07/23/25 09:00 Proposed Procedures p Diagnostic Colonoscopy - Jeff Langford MD Date/Time: 07/23/25 07:59 Surgeon: Jeff Langford MD Pre Op Diagnosis: Unspecified abdominal pain Patient Data Age: 75 Gender: M Height: 1.88 m Weight: 83.4 kg Last Vital Signs Pulse 50 L 07/23/25 07:46 Resp 17 07/23/25 07:46 BP 136/68 07/23/25 07:46 Pulse Ox 99 07/23/25 07:46 O2 Del Method Room Air 07/23/25 07:46 Allergies Allergy/AdvReac Type Severity Reaction Status Date / Time aspirin Allergy Mild HIVES Verified 07/23/25 07:43 eggplant Allergy Hives Verified 07/23/25 07:43 semaglutide (From [facility]) AdvReac Severe Nausea;diar Verified 07/23/25 07:43 moses ARB-Angiotensin Receptor AdvReac Intermediate nephrectomy, Verified 07/23/25 07:43 Antagonist ckd CAYDEN Inhibitors AdvReac nephrectomy, Verified 07/23/25 07:43 ckd Home Medications ?Medication ?Instructions ?Recorded ?Confirmed ?Type lactobacillus combination no.4 3 3,000 mmu cells PO DA BRYSON 05/04/22 07/23/25 History billion cell capsule (Probiotic) cholecalciferol (vitamin D3) 125 125 mcg PO DAILY 06/1807/23/25 History mcg (5,000 unit) capsule vitamin B complex 1 cap PO DAILY 10/03/2306/26 History mecobalamin (vitamin B12) 10,000 1,000 mcg IM MONTHLY 09/27/24 07/23/25 History mcg solution for injection terbinafine HCl 250 mg tablet 250 mg PO .COMPLEX 10/3107/23/25 History cephalexin 250 mg capsule 250 mg PO DAILY 11/07/24 History metformin 500 mg tablet,extended 500 mg PO BID #180 ta bs 11/07/24 07/23/25 Rx release 24 hr blood sugar diagnostic (Accu-Chek #100 ea 11/25/24 Rx SmartView Test Strips) ezetimibe 10 mg tablet (Zetia) 10 mg PO DAILY #90 tabs 01/27/25 07/23/25 Rx mupirocin 2 % topical ointment 1 applic topical BID #1 5 grams 05/19/25 07/23/25 Rx (Centany) lancets (Accu-Chek Fastclix Lancet #100 ea 05/20/25 Rx Drum) amlodipine 5 mg tablet 5 mg PO BID #180 tabs 07/23/25 Rx nebivolol 5 mg tablet 5 mg PO DAILY #90 tabs 07/1607/23/25 Rx Laboratory Tests 07/23/25 07:41 POC Capillary Glucose 90 mg/dl (65-105) Patient hx anesthesia problems: none Family hx anesthesia problems: none Results Review: All pre-operative results and documents have been reviewed as part of the pre- operative evaluation. [facility] Past Medical History Medical History Loose stools Early satiety Gas bloat syndrome Abdominal pain Family history of colon cancer in mother Gout Rheumatoid arthritis History of renal cell carcinoma History of hyperlipidemia History of diabetes mellitus History of hypertension Surgical History Surgical History History of right nephrectomy Social History Social History Social History: caffeine use, 2 cups of coffee per day Smoking packs per day: 1 Smoking cigarettes per day: 20.0 Years smoked: 30 Smoking pack-years: 30.00 Smoking status: Former smoker Tobacco type: cigarettes Alcohol intake: never Substance use: never Substance use type: does not use Do You Feel Safe in your Home?: Yes Lack of Transportation: No Lack of Food: Never True Current Housing: I Have Housing Concerned About Future Housing: No Difficulty Paying Gas/Electric Bills: No Difficulty Paying for Meds: No Currently Unemployed: No Education: High School Diploma/GED Difficulty w/ Childcare or Family Care: No Living arrangements: with family Gender identity (if verbalized by the patient): Male Sexual Orientation (if Verbalized by the Patient): Straight or Heterosexual Spiritual care concerns: No Anes - Eval Final PreProcedure Day of Procedure 07/23/25 07:59 Patient weight: normal Heart: regular rate and rhythm Lungs: clear to auscultation Airway: Mallampati scale class 1 Neurological: alert and oriented Last oral intake: >/= 8 hours ASA classification: III Emergent: no Anesthetic plan: proceed Anesthesia type and monitoring: general GIVS and standard monitoring Results Review: All pre-operative results and documents have been reviewed as part of the pre- operative evaluation. Informed Consent: The patient's anesthetic plan and its attendant risks and benefits were discussed with the patient/family/POA. Questions were solicited and answers provided to the satisfaction of the patient/family/POA.
--- NOTE | 2025-07-23 09:33 | PM.HPGS ---
History of Present Illness History of Present Illness Consent: Risks, benefits, and alternatives have been discussed and questions answered. Patient agrees to proceed with procedure. Chief complaint: Unspecified abdominal pain Narrative: Calin Lerma is a 75 year old male with change bowel habits, last colonoscopy 2021 Review of Systems Review of Systems: All systems reviewed & are unremarkable except as noted in HPI and below PMFSH Past Medical History Medical History Loose stools Early satiety Gas bloat syndrome Abdominal pain Family history of colon cancer in mother Gout Rheumatoid arthritis History of renal cell carcinoma History of hyperlipidemia History of diabetes mellitus History of hypertension Surgical History Surgical History History of right nephrectomy Social History Social History Social History: caffeine use, 2 cups of coffee per day Smoking packs per day: 1 Smoking cigarettes per day: 20.0 Years smoked: 30 Smoking pack-years: 30.00 Smoking status: Former smoker Tobacco type: cigarettes Alcohol intake: never Substance use: never Substance use type: does not use Do You Feel Safe in your Home?: Yes Lack of Transportation: No Lack of Food: Never True Current Housing: I Have Housing Concerned About Future Housing: No Difficulty Paying Gas/Electric Bills: No Difficulty Paying for Meds: No Currently Unemployed: No Education: High School Diploma/GED Difficulty w/ Childcare or Family Care: No Living arrangements: with family Gender identity (if verbalized by the patient): Male Sexual Orientation (if Verbalized by the Patient): Straight or Heterosexual Spiritual care concerns: No Meds Home Medications and Allergies Home Medications ?Medication ?Instructions ?Recorded ?Confirmed ?Type lactobacillus combination no.4 3 3,000 mmu cells PO DAILY 05/04/22 07/23/25 History billion cell capsule (Probiotic) cholecalciferol (vitamin D3) 125 125 mcg PO DAILY 10/03/23 07/23/25 History mcg (5,000 unit) capsule vitamin B complex 1 cap PO DAILY 10/03/23 07/23/25 History mecobalamin (vitamin B12) 10,000 1,000 mcg IM MONTHLY 09/27/24 07/23/25 History mcg solution for injection terbinafine HCl 250 mg tablet 250 mg PO .COMPLEX 10/31/24 07/23/25 History cephalexin 250 mg capsule 250 mg PO DAILY 11/07/24 07/23/25 History metformin 500 mg tablet,extended 500 mg PO BID #180 tabs 11/07/24 07/23/25 Rx release 24 hr blood sugar diagnostic (Accu-Chek #100 ea 11/25/24 06/19/25 Rx SmartView Test Strips) ezetimibe 10 mg tablet (Zetia) 10 mg PO DAILY #90 tabs 01/27/25 07/23/25 Rx mupirocin 2 % topical ointment 1 applic topical BID #15 grams 05/19/25 07/23/25 Rx (Centany) lancets (Accu-Chek Fastclix Lancet #100 ea 05/20/25 06/19/25 Rx Drum) amlodipine 5 mg tablet 5 mg PO BID #180 tabs 07/14/25 07/23/25 Rx nebivolol 5 mg tablet 5 mg PO DAILY #90 tabs 07/16/25 07/23/25 Rx Allergies Allergy/AdvReac Type Severity Reaction Status Date / Time aspirin Allergy Mild HIVES Verified 07/23/25 07:43 eggplant Allergy Hives Verified 07/23/25 07:43 semaglutide (From Rybelsus) AdvReac Severe Nausea;diar Verified 07/23/25 07:43 moses ARB-Angiotensin Receptor AdvReac Intermediate nephrectomy, Verified 07/23/25 07:43 Antagonist ckd CAYDEN Inhibitors AdvReac nephrectomy, Verified 07/23/25 07:43 ckd Vital Signs Vital Signs - 24 hr 07/23/25 07:46 Pulse Rate 50 L Respiratory Rate 17 Blood Pressure 136/68 Pulse Oximetry 99 Oxygen Delivery Room Air Exam Const: General: comfortable and no acute distress HENMT: Face/Nose/Sinus: Normal nares present Eyes: General: appearance normal, both eyes and all related structures Neck: Neck: no JVD Resp: Auscultation: clear to auscultation bilaterally Cardio: Rate: regular rate Rhythm: regular rhythm GI: Inspection: non-distended GI Palp: Yes Soft to palpation Skin: General skin exam: normal color Extrem: General: normal to inspection Psych: Mental Status: mental status grossly normal Assessment and Plan Assessment and plan (1) Change in stool habits: Code(s): R19.4 - Change in bowel habit Status: Acute Assessment and Plan: colonoscopy
--- NOTE | 2025-07-23 09:54 | S_PTH ---
PATIENT: Calin Lerma LOC: [facility]#:[id number] AGE/SX: 75/M ROOM: RE07/23/[address]: Jeff Langford MD : 1950 BED: DIS: 07/23/2025 SPEC #: [id number] RECD: 07/23/25 11:21 STATUS: CARISSA REQ #: [id number] NISREEN: 07/23/25 09:[address]: Jeff Langford DEPT: [facility] Surgical RECD BY: Sally Lindsey ENTERED: 07/23/25 11:24 SP TYPE: Surgical OTHR DR: Jenna Alfaro MD Tissues: A - Colon Biopsy B - Colon Polypectomy Procedures: Hematoxylin and Eosin Stain Gross and Microscopic Level 4
[2025-07-23 09:59] VITALS: BP 108/68; PULSE 54; RESP 17; TEMP 36.5; O2SAT 99
[2025-07-23 10:09] VITALS: BP 123/72; PULSE 54; RESP 17; O2SAT 97
[2025-07-23 10:19] VITALS: BP 130/70; PULSE 47; RESP 18; O2SAT 100
== END 2025-07-23 10:26 | disposition home or self-care (01) ==
PROVIDERS: PCP Family Medicine; Referring Provider Nurse Practitioner Family; Visit Provider Internal Medicine Gastroenterology
PROC: 0DJD8ZZ Inspection of Lower Intestinal Tract, Via Natural or Artificial Opening Endoscopic (ICD-10-PCS; CPT 45378; principal; 2025-07-23 09:00)
DX: R19.4 Change in bowel habit (principal); D12.2 Benign neoplasm of ascending colon; K63.5 Polyp of colon; K57.30 Diverticulosis of large intestine without perforation or abscess without bleeding; K64.8 Other hemorrhoids; Z80.0 Family history of malignant neoplasm of digestive organs; Z87.891 Personal history of nicotine dependence; Z79.899 Other long term (current) drug therapy
CPT/HCPCS: 45380; 45385; 82948; 88305; J2003; J2704; J7120

== ENCOUNTER 2025-07-27 05:47 | Inpatient (IN) | payer MEDICARE, SELFPAY ==
--- OUTSIDE RECORDS SUMMARY | 2007-05-03 03:13 | XMS_ITS | Continuity of Care Document ---
Author Organization [facility] Address [address] [place] [address] Phone Care Team Providers Care Molder Bench Name Role Phone Balderas OD, Dariel Unavailable Unavailable Procedures Procedure Date Office/outpatient Visit, Est Office/outpatient Visit, Est Office/outpatient Visit, [facility] Advance Directives Directive Yes / No Effective Date File Name No Information Encounters Encounter Description Practice Location Reason(s) For Visit Diagnoses Date Provider Providers Copied on Encounter [place] [facility] [place] [address] [place] [address] [address], [place], [place], [id number], tel:[phone] [facility] No Information Aug-0 9-200 7 Balderas OD Dariel. [address] , [address], [place], [place], [facility] [place] [facility] [place], . tel:[phone] [place] [facility] [place] [address] [place] [address] [address], [place], [place], [id number], [place] tel:[phone] [facility] No Information Apr-0 2-200 7 Balderas OD Dariel. [address] , [address], [place], [place], [facility] [place] [facility] [place], . tel:[phone] Office/outpat ient Visit, [facility], [address], [place], [place], [address], tel:[phone] [facility] No Information Xavi-3 1-200 7 Balderas OD Dariel. [address] , [address], [place], [address], [place]. tel:[phone] Family History Family Member Type Diagnosis Age At Onset No Information Payers Payer name Insurance type Covered republican ID Authoriza tion(s) No Information Social History Type Description Quantity Date Captured Comments Sex Male Smoking Status No Information Chief Complaint And Reason For Visit No Information Reason For Referral Reason For Referral No Information History Of Present Illness Encounter Date Complaint History Of Prese nt Illness No Information Functional Status Date Functional Assessmen t No Information Instructions Date Instruction Additional Infor mation No Information Assessments Type Assessment Date No Information Patient Care Teams Name Effective Dates (start - stop) Status Members No Information
[2025-07-27] VITALS (17 sets, daily range): BP systolic 135–165; BP diastolic 69–95; PULSE 52–79; RESP 10–19; TEMP 36.2–36.7; O2SAT 97–100; BMI 24.4
--- NOTE | ~2025-07-27 | MR_ITS ---
EXAMINATION: MR brain/brain stem wo/w con DATE: 07/27/2025 15:21 INDICATION: Acute cranial nerve III palsy. Vision change. TECHNIQUE: Magnetic resonance imaging (MRI) of the brain and brainstem was performed without and with 18 mL MultiHance intravenous contrast. COMPARISON: Head CT 07/27/2025 FINDINGS: There is an acute infarct in the left thalamus. There is no intracranial hemorrhage or abnormal mass lesion. There are scattered areas of nonspecific increased T2-weighted signal intensity in the cerebral white matter, which is within normal limits for the patient's age. The ventricles are normal in size. There is mild mucosal thickening in the paranasal sinuses. The orbits are normal. The mastoid air cells are normal. IMPRESSION: 1. Acute infarct in the left thalamus. Reviewed, dictated and finalized at location E. D ASSESSOR
--- NOTE | ~2025-07-27 | CT_ITS ---
CT HEAD CTA NECK, CTA HEAD Clinical History: blurry vision Comparison: CT brain 02/24/2017 TECHNIQUE: Unenhanced axial images skull base to vertex Coronal, sagittal reformats Helical images thoracic inlet to vertex IV contrast information not listed in PACS Coronal, sagittal reformats. Multi planar MIPS. CT images acquired with automatic exposure control for dose reduction DLP: 681 mGy-cm Findings: CT HEAD Sulci, ventricles: Unremarkable. No intracerebral hemorrhage. No evidence acute territorial infarct. No mass effect, midline shift. Bony calvarium intact. Visualized paranasal sinuses: Clear. Mastoid air cells: Clear. No abnormal foci of contrast enhancement. Patent dural venous sinuses. CTA NECK NASCET Criteria utilized Great vessel origins: Not included on exam. CCAs: No dissection. No stenosis. Cervical ICAs: Severely diseased bulbs. 40% stenosis left side. Right side no significant stenosis. Vertebral Arteries: Patent. Lung Apices: Clear. Thyroid: Unremarkable. Nodes: No enlarged nodes. Bones: No acute bony abnormality. CTA HEAD: Aneurysms: None. Intracranial ICAs: Patent. Calcifications along cavernous segments. ACAs and their distal branches: Patent, unremarkable. A-Comm: Identified. Patent, unremarkable. MCAs and their distal branches: Patent, unremarkable. Basilar artery: Patent, unremarkable. stretcher and drier and their distal branches: Patent, unremarkable. P-Comms: Identified. IMPRESSION: CT HEAD: 1. No acute intracranial findings. CTA NECK: 1. No significant ICA stenosis or other acute arterial abnormality. 2. 40% stenosis left ICA. CTA HEAD: 1. No large vessel arterial occlusive disease or other acute findings. 2. No aneurysms. Reviewed, dictated and finalized at location R. P TECHNOLOGIST IMPRESSION: CT HEAD: 1. No acute intracranial findings. CTA NECK: 1. No significant ICA stenosis or other acute arterial abnormality. 2. 40% stenosis left ICA. CTA HEAD: 1. No large vessel arterial occlusive disease or other acute findings. 2. No aneurysms.
--- OUTSIDE RECORDS SUMMARY | 2025-07-27 05:49 | XMS_ITS | Clinical Summary ---
Author Organization [facility] Address [facility] [place] [address] Care Team Providers Care Tag Writer Name Role Phone Unavailable Primary Care Provider [...] of 2) 02/25/2002 COVID-19 Vaccine (1 - 2024-2 6 season) 2025 Influenza Adult (#1) 2025 RSV Immunization or 60+ Years (1 - 1-dose 75+ series) 02/25/2027 Hepatitis A Vaccines Aged Out No long er eligible based on patient's age to complete this topic Meningococcal B Vaccine Aged Out No l onger eligible based on patient's age to complete this topic Meningococcal Vaccine Aged Out No rachel elisa eligible based on patient's age to complete this topic RSV Immunizations Under 20 Months Aged Out No longer eligible based on patient's age to complete this topic
--- OUTSIDE RECORDS SUMMARY | 2025-07-27 05:49 | XMS_ITS | Clinical Summary ---
Author Organization [facility] Address [address] [place] [address] Phone Care Team Providers Care Perpetual Inventory Clerk Name Role Phone Silvino Pace MD Primary Care Provider [phone] Allergies Active Allergy Reactions Criticality Noted Date [...] AM MDT Legal Sex Male 7:53 PM [facility] Gender Identity Male 04/28/2021 [...] Advance Directives For more information, please contact: [phone] (7AM - 4PM [facility]/[place], 7 days a week) Documents on File Type Date Recorded Patient Advanced Practice Professional Expl anation Power of Qa Intern 05/10/2021 2:11 PM Clain [email or web address] Care Teams Perpetual Inventory Clerk Relationship Specialty Start Date End Date Silvino Pace MD [address] [address] PCP - General Family Medicine 12/30/18
--- NOTE | 2025-07-27 05:52 | ECG_ITS ---
Test Date: 2025-07-27 06:05:18 Measurements Intervals [place] Rate: 52 P: 230 IL: 142 QRS: -78 QRSD: 106 T: 56 QT: 428 QTc: 400 Interpretive Statements SINUS BRADYCARDIA PATTERN CONSISTENT WITH PULMONARY DISEASE INFERIOR MYOCARDIAL INFARCTION , PROBABLY OLD [40+ ms Q WAVE AND/OR ST/T ABNORMALITY IN II/aVF] Poor R wave progression No previous ECG available for comparison Electronically Signed On 07-27-2025 06:32:05 BLOOD BANK ORDER CONTROL CLERK by Debra Jorge M.D.
--- NOTE | 2025-07-27 06:05 | ED_ITS ---
HPI - Eye Problem General Chief complaint: Neuro Symptoms/Deficit Stated complaint: vision problems, dash eyes, worse on right Time Seen by Provider: 07/27/25 05:55 History of Present Illness HPI Narrative: 75-year-old male with history of CKD, renal cell carcinoma status post nephrectomy, hypertension, diabetes. Patient presents with blurry vision. He went to bed last night around 11:00 p.m. without any difficulties and woke up around 5:00 a.m. with double vision. States he goes away when he closes 1 eye but notes that his right eye is drooping into the right side. Never had any issues with vision before does not wear any corrective lenses. No history of diabetic retinopathy and does not see an eye doctor. No headache or nausea, vomiting. States he was unsteady on his feet as he was not able to walk easily with the blurry vision. No chest pain shortness a breath. Did not fall or injure himself. Does not take any blood thinner medications. Related Data Home Medications ?Medication ?Instructions ?Recorded ?Confirmed ?Last Taken ?Type lactobacillus combination no.4 3 3,000 mmu cells PO DA BRYSON 05/04/22 07/23/25 07/22/25 History billion cell capsule (Probiotic) cholecalciferol (vitamin D3) 125 125 mcg PO DAILY 06/1807/23/25 07/22/25 History mcg (5,000 unit) capsule vitamin B complex 1 cap PO DAILY 10/03/2306/2607/22/25 History mecobalamin (vitamin B12) 10,000 1,000 mcg IM MONTHLY 09/27/24 07/23/25 07/22/25 History mcg solution for injection terbinafine HCl 250 mg tablet 250 mg PO .COMPLEX 10/3107/23/25 07/22/25 History cephalexin 250 mg capsule 250 mg PO DAILY 11/07/2407/22/25 History Allergies Allergy/AdvReac Type Severity Reaction Status Date / Time aspirin Allergy Mild HIVES Verified 07/27/25 05:48 eggplant Allergy Hives Verified 07/27/25 05:48 semaglutide (From Rybelsus) AdvReac Severe Nausea;diar Verified 07/27/25 05:48 moses ARB-Angiotensin Receptor AdvReac Intermediate nephrectomy, Verified 07/27/25 05:48 Antagonist ckd CAYDEN Inhibitors AdvReac nephrectomy, Verified 07/27/25 05:48 ckd Review of Systems 2 Review of Systems: As reviewed above in [facility] Past Medical History Medical History Loose stools Early satiety Gas bloat syndrome Abdominal pain Family history of colon cancer in mother Gout Rheumatoid arthritis History of renal cell carcinoma History of hyperlipidemia History of diabetes mellitus History of hypertension Surgical History Surgical History History of right nephrectomy Social History Social History Social History: caffeine use, 2 cups of coffee per day Smoking packs per day: 1 Smoking cigarettes per day: 20.0 Years smoked: 30 Smoking pack-years: 30.00 Smoking status: Former smoker Tobacco type: cigarettes Alcohol intake: never Substance use: never Substance use type: does not use Other substance usage details: 2.5 mg gummy to sleep Do You Feel Safe in your Home?: Yes Lack of Transportation: No Lack of Food: Never True Current Housing: I Have Housing Concerned About Future Housing: No Difficulty Paying Gas/Electric Bills: No Difficulty Paying for Meds: No Currently Unemployed: No Education: High School Diploma/GED Difficulty w/ Childcare or Family Care: No Living arrangements: with family Gender identity (if verbalized by the patient): Male Sexual Orientation (if Verbalized by the Patient): Straight or Heterosexual Spiritual care concerns: No Exam 2 Narrative: GENERAL: [Well-appearing, well-nourished, and in no acute distress.] HEAD: [Normocephalic, atraumatic.] EYES: Looking straight ahead his right eye is deviated down and outward, has evidence of cranial nerve 3 palsy with ptosis on the right eye as well. Blurry vision corrects with occlusion of one eye, but binocular vision is blurry. ENT: Nares clear, no rhinorrhea or epistaxis. Mucous membranes moist. NECK: Supple. CHEST: [Clear to auscultation. No respiratory distress.] HEART: [Regular rate and rhythm]. No murmur heard. [Normal peripheral pulses.] ABDOMEN: [Soft, nondistended], [nontender], [No rigidity or guarding] EXTREMITIES: Normal range of motion. [No edema.] SKIN: Warm, dry, no rash. NEURO: Looking straight ahead his right eye is deviated down and outward, has evidence of cranial nerve 3 palsy with ptosis on the right eye as well. Blurry vision corrects with occlusion of one eye, but binocular vision is blurry. No strength or sensation deficits in the face arms or legs. Furnace Feeder strength 5/5, no drift in the arms or legs. No ataxia in the arms or legs when accounting for vision PSYCH: [Normal mood and affect.] Course Vital Signs Vital signs: Vital Signs Temperature 36.7 C 07/27/25 05:53 Pulse Rate 53 L 07/27/25 05:53 Respiratory Rate 14 07/27/25 05:53 Blood Pressure 162/73 H 07/27/25 05:53 Pulse Oximetry 100 07/27/25 05:53 Oxygen Delivery Room Air 07/27/25 05:53 Temperature 36.7 C 07/27/25 05:53 Pulse Rate 58 L 07/27/25 07:11 Respiratory Rate 19 07/27/25 07:11 Blood Pressure 154/75 H 07/27/25 07:11 Pulse Oximetry 100 07/27/25 07:11 Oxygen Delivery Room Air 07/27/25 05:53 MDM - Eye Problem MDM Narrative Medical decision making narrative: 75-year-old male with history of CKD, renal cell carcinoma status post nephrectomy, hypertension, diabetes. Patient presents with blurry vision. He went to bed last night around 11:00 p.m. without any difficulties and woke up around 5:00 a.m. with double vision. States he goes away when he closes 1 eye but notes that his right eye is drooping into the right side. Never had any issues with vision before does not wear any corrective lenses. No history of diabetic retinopathy and does not see an eye doctor. No headache or nausea, vomiting. States he was unsteady on his feet as he was not able to walk easily with the blurry vision. No chest pain shortness a breath. Did not fall or injure himself. Does not take any blood thinner medications. Looking straight ahead his right eye is deviated down and outward, has evidence of cranial nerve 3 palsy with ptosis on the right eye as well. Blurry vision corrects with occlusion of one eye, but binocular vision is blurry. No strength or sensation deficits in the face arms or legs. Furnace Feeder strength 5/5, no drift in the arms or legs. No ataxia in the arms or legs when accounting for vision. Stroke code was activated this time as patient has any acute neurological deficit with vision changes. Concern for potential aneurysmal formation causing palsy of the right 3rd nerve verses acute ischemic stroke versus intracranial mass or metastatic disease from his history of renal cell cancer. CT head and CT angiography of the head neck ordered. Cardiac workup obtained. Placed on classroom monitor. Point of care glucose obtained and unremarkable. Hemodynamically stable aside from sinus bradycardia on EKG and monitor. Patient's last known well 11:00 p.m. and outside window for thrombolytics therapy. Within 24 hours for any LVO interventions however. CT without contrast shows no acute findings. CT angiography shows no LVO, masses, aneurysms, or significant degree of stenosis. No hemorrhage or dissection. Patient still symptomatic and having cranial nerve palsy on the right side. Spoke to the neurologist on-call Dr. Anderson who recommended aspirin and MRI during admission. Spoke to the hospitalist Dr. Varma who accepted the patient to telemetry monitored bed at this time. Patient successfully admitted at this time. MRI ordered. Patient has an allergy to aspirin. Medical Records Attestation: I reviewed the patient's medical records. Lab Data Attestation: I reviewed the patient's lab results. 07/27/25 06:07 07/27/25 07:12 Labs: Lab Results 07/27/25 07/27/25 07/27/25 Range/Units 06:03 06:07 06:07 WBC 5.2 (4.5-10.0) K/mm3 RBC 4.40 L (4.6-6.20) M/mm3 Hgb 13.1 L (14.0-18.0) g/dL Hct 40.0 L (42.0-52.0) % MCV 90.9 (80-100) fl MCH 29.8 (26-34) pg MCHC 32.8 (32-36) g/dl RDW 13.1 (11.5-14.5) % Plt Count 186 (150-375) k/mm3 MPV 10.1 (7.4-10.4) fl Immature Gran % (Auto) 0.2 (0-0.5) % Neut % (Auto) 58.4 (45.5-73.1) % Lymph % (Auto) 26.8 (18.3-44.2) % [place] % (Auto) 9.4 H (2.6-8.5) % Eos % (Auto) 4.4 (0-4.4) % Baso % (Auto) 0.8 (0.2-1.2) % Lymph # (Auto) 1.40 (0.9-3.2) K/mm3 [place] # (Auto) 0.5 (0.1-0.6) K/mm3 Eos # (Auto) 0.2 (0-0.3) K/mm3 Baso # (Auto) 0.0 (0.0-0.1) K/mm3 Abs Immat Gran (auto) 0.01 (0.00-0.031) K/mm3 Absolute Neuts (auto) 3.1 (1.3-6.7) K/mm3 Absolute Nucleated RBC 0.000 (0.0-0.012) K/mm3 Nucleated RBC % 0.0 (0.0-0.2) % Sodium 138 (137-145) mmol/L Potassium 4.0 (3.4-5.0) mmol/L Chloride 103 (98-107) mmol/L Carbon Dioxide 27 (22-30) mmol/L Anion Gap 8 (4-12) mmol/L BUN 21 H (9-20) mg/dL Creatinine 1.19 (0.7-1.3) mg/dL Estim Creat Clear Calc 57 ml/min Estimated GFR 60 (59 - ) Glucose 170 H (65-110) mg/dL POC Capillary Glucose 166 H (65-105) mg/dl Hemoglobin A1c 6.1 H (<5.7) % Calcium 9.7 (8.4-10.2) mg/dL Total Bilirubin 0.7 (0.2-1.3) mg/dL AST 30 (17-59) U/L ALT 20 (6-50) U/L Alkaline Phosphatase 46 (38-126) U/L Troponin I < 0.012 Cancelled (0.000-0.034) ng/mL Total Protein 7.8 (6.3-8.2) g/dL Albumin 4.4 (3.5-5.1) g/dL 07/27/25 Range/Units 07:12 WBC (4.5-10.0) K/mm3 RBC (4.6-6.20) M/mm3 Hgb (14.0-18.0) g/dL Hct (42.0-52.0) % MCV (80-100) fl MCH (26-34) pg MCHC (32-36) g/dl RDW (11.5-14.5) % Plt Count (150-375) k/mm3 MPV (7.4-10.4) fl Immature Gran % (Auto) (0-0.5) % Neut % (Auto) (45.5-73.1) % Lymph % (Auto) (18.3-44.2) % [place] % (Auto) (2.6-8.5) % Eos % (Auto) (0-4.4) % Baso % (Auto) (0.2-1.2) % Lymph # (Auto) (0.9-3.2) K/mm3 [place] # (Auto) (0.1-0.6) K/mm3 Eos # (Auto) (0-0.3) K/mm3 Baso # (Auto) (0.0-0.1) K/mm3 Abs Immat Gran (auto) (0.00-0.031) K/mm3 Absolute Neuts (auto) (1.3-6.7) K/mm3 Absolute Nucleated RBC (0.0-0.012) K/mm3 Nucleated RBC % (0.0-0.2) % Sodium (137-145) mmol/L Potassium (3.4-5.0) mmol/L Chloride (98-107) mmol/L Carbon Dioxide (22-30) mmol/L Anion Gap (4-12) mmol/L BUN (9-20) mg/dL Creatinine 1.40 (0.7-1.3) mg/dL Estim Creat Clear Calc 49 ml/min Estimated GFR 50 L (59 - ) Glucose (65-110) mg/dL POC Capillary Glucose (65-105) mg/dl Hemoglobin A1c (<5.7) % Calcium (8.4-10.2) mg/dL Total Bilirubin (0.2-1.3) mg/dL AST (17-59) U/L ALT (6-50) U/L Alkaline Phosphatase (38-126) U/L Troponin I (0.000-0.034) ng/mL Total Protein (6.3-8.2) g/dL Albumin (3.5-5.1) g/dL Imaging Data Attestation: I personally reviewed and interpreted this imaging study as follows: My impression: Impressions Head CT 07/27/25 06:37 IMPRESSION: CT HEAD: 1. No acute intracranial findings. CTA NECK: 1. No significant ICA stenosis or other acute arterial abnormality. 2. 40% stenosis left ICA. CTA HEAD: 1. No large vessel arterial occlusive disease or other acute findings. 2. No aneurysms. Head/Neck CTA 07/27/25 06:37 IMPRESSION: CT HEAD: 1. No acute intracranial findings. CTA NECK: 1. No significant ICA stenosis or other acute arterial abnormality. 2. 40% stenosis left ICA. CTA HEAD: 1. No large vessel arterial occlusive disease or other acute findings. 2. No aneurysms. Critical Care Time Critical Care Time Critical Care Time: Yes Total Critical Care Time: 35 Discharge Plan Discharge Clinical Impression: 3rd cranial nerve palsy, Diplopia Patient Disposition: Still a Patient Condition: Stable Patient Language: Eritrean Prescriptions: No Action mecobalamin (vitamin B12) 10,000 mcg recon soln 1,000 mcg IM MONTHLY mupirocin [Centany] 2 % ointment 1 applic topical BID Qty: 15 0RF cholecalciferol (vitamin D3) 125 mcg (5,000 unit) capsule 125 mcg PO DAILY vitamin B complex Capsule 1 cap PO DAILY terbinafine HCl 250 mg tablet 250 mg PO .COMPLEX Patient Comments: Takes once every 4 days Rx Instructions: 250 mg orally once every 4 days; cephalexin 250 mg capsule 250 mg PO DAILY metformin 500 mg tablet extended release 24 hr 500 mg PO BID Qty: 180 3RF Probiotic 3 billion cell Capsule 3,000 mmu cells PO DAILY Rx Instructions: administer with a meal (DME) Accu-Chek SmartView Test Strip Strip See Rx Instructions .Route Qty: 100 3RF Rx Instructions: check blood glucose levels QD ezetimibe [Zetia] 10 mg tablet 10 mg PO DAILY Qty: 90 2RF (DME) lancets [Accu-Chek Fastclix Lancet um] Misc See Rx Instructions .Route Qty: 100 2RF Rx Instructions: Use to check BS once daily amlodipine 5 mg tablet 5 mg PO BID Qty: 180 1RF nebivolol 5 mg tablet 5 mg PO DAILY Qty: 90 3RF Follow-up/Referrals: Jenna Alfaro MD [Primary Care Provider, [facility]] Time of Disposition: 07:15
[2025-07-27 06:14] LABS: Estimated CRCL calculation 49 ml/min; Estimated Glomerular Filt Rate 50
[2025-07-27 06:17] LABS: Hematocrit 40.0 % (42.0-52.0); Hemoglobin 13.1 g/dL (14.0-18.0); Immature Granulocyte Percent A 0.2 % (0-0.5); Lymphocytes Absolute Auto 1.40 K/mm3 (0.9-3.2); Mean Corpuscular HGB Conc 32.8 g/dl (32-36); Mean Corpuscular Hemoglobin 29.8 pg (26-34); Mean Corpuscular Volume 90.9 fl (80-100); Nucleated Red Blood Cells Absolute Auto 0.000 K/mm3 (0.0-0.012); Nucleated Red Blood Cells Perc 0.0 % (0.0-0.2); Platelet Count Result 186 k/mm3 (150-375); Red Blood Count 4.40 M/mm3 (4.6-6.20); White Blood Count 5.2 K/mm3 (4.5-10.0)
[2025-07-27 06:36] LABS: Alanine Aminotransferase 20 U/L (6-50); Albumin Level 4.4 g/dL (3.5-5.1); Alkaline Phosphatase 46 U/L (38-126); Anion Gap 8 mmol/L (4-12); Aspartate Amino Transferase 30 U/L (17-59); Bilirubin,Total 0.7 mg/dL (0.2-1.3); Blood Urea Nitrogen 21 mg/dL (9-20); Calcium 9.7 mg/dL (8.4-10.2); Carbon Dioxide 27 mmol/L (22-30); Chloride 103 mmol/L (98-107); Estimated CRCL calculation 57 ml/min; Estimated Glomerular Filt Rate 60; Glucose 170 mg/dL (65-110); Potassium 4.0 mmol/L (3.4-5.0); Sodium 138 mmol/L (137-145); Total Protein 7.8 g/dL (6.3-8.2)
[2025-07-27 06:46] LABS: Hemoglobin A1C 6.1 % (<5.7)
[2025-07-27 06:47] LABS: Troponin I < 0.012 ng/mL (0.000-0.034)
--- NOTE | 2025-07-27 07:35 | PC.NURSE ---
with stat-rad called regarding pt CT results stating they were negative as pt was a Code Stroke, EDP and affirmative action officer aware.
--- NOTE | 2025-07-27 09:47 | ADMGEN ---
This patient, Calin Lerma, was admitted to 2 Medical Room 240-01. Patient/family oriented to hospital policies and general routines including ID bracelet, bed and alarms, visiting hours, pain management, procedures, bathroom and other care routines, personal items, smoking policy, room service/diet, and visiting hours. Information on how to activate the Rapid Response Team has been discussed. Patient/Family are encouraged to report perceived risks to care and to ask questions if they do not understand what they are told or what they should do.
--- NOTE | 2025-07-27 10:18 | PC.NURSE ---
Pt found to have eaten breakfast tray.
--- NOTE | 2025-07-27 13:08 | PM.IMHP ---
H&P: HPI History of Present Illness Date/Time: 07/27/25 13:08 Chief Complaint: Double vision Narrative: Mr. Maria Guadalupe Layton 75 years old male with past medical history of renal cell carcinoma status post nephrectomy chronic kidney disease, hypertension, diabetes is admitted through emergency room with complaints of having blurry vision and double vision since morning. According the patient he went to sleep last night around 11:00 p.m. he was feeling fine but when he woke up this morning he was having double vision and has blurry vision. Patient denies any headache patient denies any shortness of breath or chest pain. Patient denies any numbness and weakness in the arms and legs. Patient workup in the ER was negative. Patient was transferred to improved further management and treatment. At present patient is still having double vision. Otherwise he is feeling better fine. There is no known numbness, weakness or tingling. Patient is unsteady while walking because of blurry vision. Patient denies any history of fall Review of Systems Review of Systems: All systems reviewed & are unremarkable except as noted in HPI and below (the history and physical examination.) [facility] Past Medical History Medical History (Updated 07/27/25 @ 13:14 by Ismael Varma MD) Loose stools Early satiety Gas bloat syndrome Abdominal pain Family history of colon cancer in mother Gout Rheumatoid arthritis History of renal cell carcinoma History of hyperlipidemia History of diabetes mellitus History of hypertension Surgical History Surgical History History of right nephrectomy Social History Social History Social History: caffeine use, 2 cups of coffee per day Smoking packs per day: 1 Smoking cigarettes per day: 20.0 Years smoked: 30 Smoking pack-years: 30.00 Smoking status: Former smoker Alcohol intake: never Substance use: never Substance use type: does not use Other substance usage details: 2.5 mg gummy to sleep Do You Feel Safe in your Home?: Yes Lack of Transportation: No Lack of Food: Never True Current Housing: I Have Housing Concerned About Future Housing: No Difficulty Paying Gas/Electric Bills: No Difficulty Paying for Meds: No Currently Unemployed: No Education: High School Diploma/GED Difficulty w/ Childcare or Family Care: No Living arrangements: with family Gender identity (if verbalized by the patient): Male Sexual Orientation (if Verbalized by the Patient): Straight or Heterosexual Spiritual care concerns: No Meds Home Medications and Allergies Home Medications ?Medication ?Instructions ?Recorded ?Confirmed ?Type lactobacillus combination no.4 3 3,000 mmu cells PO DAILY 05/04/22 07/27/25 History billion cell capsule (Probiotic) cholecalciferol (vitamin D3) 125 125 mcg PO DAILY 10/03/23 07/27/25 History mcg (5,000 unit) capsule vitamin B complex 1 cap PO DAILY 10/03/23 07/27/25 History mecobalamin (vitamin B12) 10,000 1,000 mcg IM MONTHLY 09/27/24 07/27/25 History mcg solution for injection terbinafine HCl 250 mg tablet 250 mg PO .COMPLEX 10/31/24 07/27/25 History cephalexin 250 mg capsule 250 mg PO DAILY 11/07/24 07/27/25 History metformin 500 mg tablet,extended 500 mg PO BID #180 tabs 11/07/24 07/27/25 Rx release 24 hr blood sugar diagnostic (Accu-Chek #100 ea 11/25/24 07/27/25 Rx SmartView Test Strips) ezetimibe 10 mg tablet (Zetia) 10 mg PO DAILY #90 tabs 01/27/25 07/27/25 Rx mupirocin 2 % topical ointment 1 applic topical BID #15 grams 05/19/25 07/27/25 Rx (Centany) lancets (Accu-Chek Fastclix Lancet #100 ea 05/20/25 07/27/25 Rx Drum) amlodipine 5 mg tablet 5 mg PO BID #180 tabs 07/14/25 07/27/25 Rx nebivolol 5 mg tablet 5 mg PO DAILY #90 tabs 07/16/25 07/27/25 Rx Allergies Allergy/AdvReac Type Severity Reaction Status Date / Time aspirin Allergy Mild HIVES Verified 07/27/25 09:55 eggplant Allergy Hives Verified 07/27/25 09:55 semaglutide (From Rybelsus) AdvReac Severe Nausea;diar Verified 07/27/25 09:55 moses ARB-Angiotensin Receptor AdvReac Intermediate nephrectomy, Verified 07/27/25 09:55 Antagonist ckd CAYDEN Inhibitors AdvReac nephrectomy, Verified 07/27/25 09:55 ckd Vital Signs Vital Signs - 24 hr 07/27/25 05:53 07/27/25 05:53 07/27/25 05:55 Temperature 36.7 C Pulse Rate 53 L 54 L 53 L Respiratory Rate 14 12 10 L Blood Pressure 162/73 H 162/73 H Pulse Oximetry 100 100 100 Oxygen Delivery Room Air 07/27/25 06:00 07/27/25 06:01 07/27/25 06:22 Temperature Pulse Rate 54 L 52 L 58 L Respiratory Rate 12 11 L Blood Pressure 165/69 H Pulse Oximetry 100 99 Oxygen Delivery 07/27/25 06:22 07/27/25 06:24 07/27/25 06:24 Temperature Pulse Rate 64 55 L 56 L Respiratory Rate 15 15 12 Blood Pressure 162/70 H 162/70 H Pulse Oximetry 99 99 100 Oxygen Delivery 07/27/25 06:30 07/27/25 06:31 07/27/25 07:11 Temperature Pulse Rate 61 58 L Respiratory Rate 15 14 19 Blood Pressure 142/90 H 154/75 H Pulse Oximetry 100 100 100 Oxygen Delivery 07/27/25 07:41 07/27/25 09:07 07/27/25 09:29 Temperature 36.4 C L Pulse Rate 56 L 66 79 Respiratory Rate 16 16 19 Blood Pressure 149/80 H 156/87 H 135/95 H Pulse Oximetry 97 100 99 Oxygen Delivery 07/27/25 12:00 Temperature Pulse Rate 67 Respiratory Rate Blood Pressure Pulse Oximetry Oxygen Delivery Exam Narrative: GENERAL: [Well-appearing, well-nourished, and in no acute distress.] HEAD: [Normocephalic, atraumatic.] EYES: Looking straight ahead his right eye is deviated down and outward, has evidence of cranial nerve 3 palsy with ptosis on the right eye as well. Blurry vision corrects with occlusion of one eye, but binocular vision is blurry. ENT: Nares clear, no rhinorrhea or epistaxis. Mucous membranes moist. NECK: Supple. CHEST: [Clear to auscultation. No respiratory distress.] HEART: [Regular rate and rhythm]. No murmur heard. [Normal peripheral pulses.] ABDOMEN: [Soft, nondistended], [nontender], [No rigidity or guarding] EXTREMITIES: Normal range of motion. [No edema.] SKIN: Warm, dry, no rash. NEURO: Looking straight ahead his right eye is deviated down and outward, has evidence of cranial nerve 3 palsy with ptosis on the right eye as well. Blurry vision corrects with occlusion of one eye, but binocular vision is blurry. No strength or sensation deficits in the face arms or legs. Tablet Coater strength 5/5, no drift in the arms or legs. No ataxia in the arms or legs when accounting for vision PSYCH: [Normal mood and affect.] H&P: Results Labs Labs: Short CBC 07/27/25 Range/Units 06:07 WBC 5.2 (4.5-10.0) K/mm3 Hgb 13.1 L (14.0-18.0) g/dL Hct 40.0 L (42.0-52.0) % Plt Count 186 (150-375) k/mm3 BMP 07/27/25 07/27/25 06:07 07:12 Sodium 138 Potassium 4.0 Chloride 103 Carbon Dioxide 27 BUN 21 H Creatinine 1.19 1.40 Glucose 170 H Calcium 9.7 Cardiac Enzymes 07/27/25 07/27/25 Range/Units 06:07 06:07 Troponin I < 0.012 Cancelled (0.000-0.034) ng/mL Liver Function 07/27/25 Range/Units 06:07 Total Bilirubin 0.7 (0.2-1.3) mg/dL AST 30 (17-59) U/L ALT 20 (6-50) U/L Alkaline Phosphatase 46 (38-126) U/L Albumin 4.4 (3.5-5.1) g/dL Assessment and Plan Assessment and plan (1) 3rd cranial nerve palsy: Code(s): H49.00 - Third [oculomotor] nerve palsy, unspecified eye Status: Acute Assessment and Plan: Neuro checks Q shift. Continue with good control of diabetes. Neurology consult (2) History of hypertension: Code(s): Z86.79 - Personal history of other diseases of the circulatory system Status: Acute Assessment and Plan: Restart home medication monitor closely. (3) History of diabetes mellitus: Code(s): Z86.39 - Personal history of other endocrine, nutritional and metabolic disease Status: Acute Assessment and Plan: Restart home medication monitor closely. (4) History of nephrectomy: Code(s): Z90.5 - Acquired absence of kidney Status: Acute Assessment and Plan: Stable, continue current treatment. Plan Admit patient as a full admission telemetry bed. DVT prophylaxis Lovenox. Code status full.
[2025-07-27] MEDS: ENOXAPARIN 40 MG/0.4 ML SYRINGE SUB-Q (17:18)
[2025-07-27] MEDS: ATORVASTATIN 20 MG TABLET PO (17:18)
[2025-07-27] MEDS: CEPHALEXIN 250 MG CAPSULE PO (20:45)
[2025-07-28] VITALS (10 sets, daily range): BP systolic 122–142; BP diastolic 70–86; PULSE 45–63; RESP 16–20; TEMP 36.2–36.7; O2SAT 97–99
--- NOTE | 2025-07-28 | ECHO_ITS ---
Patient Info Name: Calin Lerma Age: 75 years : 1950 Gender: Male Ht: 74 in Wt: 190 lbs BSA: 2.12 m2 HR: 62 bpm BP: 142 / 74 mmHg Technical Quality: Good Exam Date: 07/28/2025 3:52 PM Patient Status: I Admit Date: 07/28/2025 Exam Type: CA echo doppler w bubble study Complete two-dimensional, color flow and Doppler transthoracic echocardiogram is performed with agitated saline. Staff Referring Physician: Juan Figueroa Director Digital: James Banerjee III Attending Provider: Ismael Varma Contrast/Agitated Saline Contrast/Ag. Saline: Agitated Saline Amount: 12.00 ml Administered By: James Banerjee III Existing IV Access: Yes IV Access Condition: patent with no signs of infiltration Summary 1. POSITIVE BUBBLE STUDY. 2. Left ventricular chamber dimension is normal. 3. Left ventricular systolic function is normal, estimated at 60-65. 4. The left ventricular diastolic function is grade I diastolic dysfunction. 5. E/e' 8 is minimally elevated. 6. Agitated saline injection with and without valsalva maneuver opacified right side cardiac chambers with 20-30 bubbles shunt to left side cardiac chambers suggestive of patent foramen ovale. 7. There is mild aortic valve sclerosis. 8. There is trace mitral valve regurgitation. 9. There is trace tricuspid valve regurgitation. Left Ventricle E/e' 8 is minimally elevated. Left ventricular chamber dimension is normal. Left ventricular systolic function is normal, estimated at 60-65. The left ventricular diastolic function is grade I diastolic dysfunction. Right Ventricle Right ventricular chamber dimension is normal. Right ventricular systolic function is normal and with normal TAPSE 2.9 cm. Left Atria Left atrial chamber dimension is normal. Right Atria Right atrial chamber dimension is normal. Atrial Septum Interatrial septum not well visualized by 2D and agitated saline imaging. Agitated saline injection with and without valsalva maneuver opacified right side cardiac chambers with 20-30 bubbles shunt to left side cardiac chambers suggestive of patent foramen ovale. Aortic Valve The aortic valve is trileaflet. There is mild aortic valve sclerosis. There is no aortic valve stenosis. There is no aortic valve regurgitation. Pulmonic Valve There is no pulmonic regurgitation. Mitral Valve There is no mitral valve stenosis. There is trace mitral valve regurgitation. Tricuspid Valve There is trace tricuspid valve regurgitation. RVSP is not measured due to an inadequate TR jet. Pericardium/Pleural There is no pericardial effusion. Inferior Vena Cava Normal inferior vena cava with >50% collapse upon inspiration consistent with normal right atrial pressure, 5 mmHg. Aorta The aortic root size at the sinus of Valsalva is normal. Left Ventricular Outflow Tract Name Value Normal LVOT 2D LVOT Diameter 2.3 cm LVOT Doppler LVOT Peak Velocity 109 cm/s LVOT Peak Gradient 5 mmHg LVOT Mean Gradient 2 mmHg LVOT VTI 24 cm LVOT VTI/AV VTI Ratio 0.6 LVOT Stroke Volume 104 ml LVOT CO 5.0 l/min LVOT CI 2.3 l/min/m2 Pulmonic Valve Name Value Normal PV Doppler PV Peak Velocity 115 cm/s PV Peak Gradient 5 mmHg PV Mean Gradient 3 mmHg Mitral Valve Name Value Normal MV Doppler MV Peak Gradient 3 mmHg MV Mean Gradient 1 mmHg MV Area (Cont Eq VTI) 3.4 cm2 MV Diastolic Function MV E Peak Velocity 55 cm/s MV A Peak Velocity 81 cm/s MV E/A 0.7 MV Decel Time (PW) 388 ms MV Annular TDI MV E/e' (Septal) 8.1 MV E/e' (Lateral) 8.2 MV E/e' (Average) 8.1 Tricuspid Valve Name Value Normal Estimated PAP/RSVP RA Pressure 5 mmHg <=5 TV Annular TDI TV Lateral Marni s' Velocity 15.5 cm/s >=9.5 Aortic Valve Name Value Normal AV Doppler AV Peak Velocity 171 cm/s AV Peak Gradient 12 mmHg AV Mean Gradient 6 mmHg AV VTI 40 cm AV Area (Cont Eq VTI) 2.6 cm2 >=3.0 AV Area (Cont Eq Alejandro) 2.7 cm2 AV DI (Alejandro) 0.64 AV Regurgitation 2D LVOT Area 4.2 cm2 Ventricles Name Value Normal LV Dimensions 2D/MM IVS Diastolic Thickness (2D) 1.1 cm 0.6-1.0 LVID Diastole (2D) 4.7 cm 4.2-5.8 LVIW Diastolic Thickness (2D) 1.1 cm 0.6-1.0 LVID Systole (2D) 3.2 cm 2.5-4.0 LVOT Diameter 2.3 cm LV Mass (2D Cubed) 190.53 g 88.00-224.00 LV Mass Index (2D Cubed) 90 g/m2 49-115 Relative Wall Thickness (2D) 0.48 <=0.42 LV Fractional Shortening/Ejection Fraction 2D/MM LV Fractional Shortening (2D) 33 % 25-43 LV EF (2D Teichholz) 61 % LV Diastolic Volume (4C MOD) 123 ml LV EF (4C MOD) 62 % LV Diastolic Volume (2C MOD) 68 ml LV EF (2C MOD) 64 % LV Diastolic Volume (BP MOD) 95 ml 62-150 LV Diastolic Volume Index (BP MOD) 45 ml/m2 34-74 LV Systolic Volume (BP MOD) 36 ml 21-61 LV Systolic Volume Index (BP MOD) 17 ml/m2 11-31 LV EF (BP MOD) 63 % 52-72 LV Diastolic Length (4C) 8.3 cm LV Systolic Length (4C) 7.3 cm LV Stroke Volume (4C MOD) 76 ml Atria Name Value Normal LA Dimensions LA Volume (4C A-L) 54 ml LA Volume (BP A-L) 46 ml RA Dimensions RA Systolic Major [place] Length (4C) 6.3 cm 2.1-2.7 RA Area (4C) 18.9 cm2 <=18.0 Report Signatures
--- NOTE | 2025-07-28 06:55 | P.PNIM_ITS ---
Progress Note: A&P Assessment and Plan (1) Acute CVA (cerebrovascular accident): Code(s): I63.9 - Cerebral infarction, unspecified Status: Acute Assessment and Plan: - presented with double vision - CT head no acute process - CTA head and neck with 40% stenosis L ICA, no large vessel occlusion - MRI brain with acute infarct in the L thalamus - start DAPT, statin - echo pending - neurology consulted, appreciate recs - PT/OT (2) History of hypertension: Code(s): Z86.79 - Personal history of other diseases of the circulatory system Status: Acute Assessment and Plan: - continue home amlodipine (3) History of diabetes mellitus: Code(s): Z86.39 - Personal history of other endocrine, nutritional and metabolic disease Status: Acute Assessment and Plan: - hold home metformin - last HgbA1c - 6.1 07/27 - continue low dose SSI - POCT glucose qACHS - hypoglycemia management protocol (4) History of nephrectomy: Code(s): Z90.5 - Acquired absence of kidney Status: Acute Assessment and Plan: -Cr 1.4, near baseline Plan DVT prophylaxis: Lovenox Code status: full code Dispo: home in 1-2 days pending neuro recs Subjective Date/time seen: 07/28/25 06:55 Interval history: Patient seen and examined at bedside. Still having vertical double vision. Denied other focal neuro deficits. Review of Systems Review of Systems: All systems reviewed & are unremarkable except as noted in HPI and below Exam Narrative: General: NAD Eyes: EOMI ENT: neck supple Cardiovascular: Regular rate and rhythm Respiratory: Clear to auscultation, respirations even and unlabored on RA Gastrointestinal: Soft, non tender Genitourinary: no suprapubic tenderness Musculoskeletal: No edema Skin: warm, dry Neuro: Alert and oriented x4. Cranial nerves II-XII intact. Face symmetric. Speech clear. Strength 5/5 in BUEs/BLEs. Sensation to light touch intact face, BUE/BLEs. No dysmetria BUE/BLEs. Psych: Mood appropriate Objective Data Vital Signs Vital Signs: Vital Signs - 24 hr 07/27/25 07:11 07/27/25 07:41 07/27/25 09:07 Temperature Pulse Rate 58 L 56 L 66 Respiratory Rate 19 16 16 Blood Pressure 154/75 H 149/80 H 156/87 H Pulse Oximetry 100 97 100 Oxygen Delivery 07/27/25 09:29 07/27/25 12:00 07/27/25 14:00 Temperature 97.5 F L 97.2 F L Pulse Rate 79 67 56 L Respiratory Rate 19 16 Blood Pressure 135/95 H 141/74 H Pulse Oximetry 99 97 Oxygen Delivery 07/27/25 16:00 07/27/25 18:17 07/27/25 19:47 Temperature 98.0 F Pulse Rate 57 L 54 L Respiratory Rate 16 Blood Pressure 141/70 H Pulse Oximetry 98 Oxygen Delivery Room Air 07/27/25 20:00 07/27/25 20:00 07/28/25 00:00 Temperature Pulse Rate 53 L 45 L Respiratory Rate Blood Pressure Pulse Oximetry Oxygen Delivery Room Air 07/28/25 04:00 07/28/25 04:26 Temperature 97.7 F Pulse Rate 51 L 57 L Respiratory Rate 17 Blood Pressure 142/74 H Pulse Oximetry 99 Oxygen Delivery Intake/Output Intake/Output: Intake & Output 07/25/25 07/26/25 07/27/25 07/28/25 23:59 23:59 22:59 23:59 Intake Total 1920 150 Balance 1920 150 Meds/Results Medications: Active Medications Generic Name Dose Route Start Last Admin Trade Name Freq PRN Reason Stop Dose Admin Acetaminophen 650 mg 07/27/25 07:12 Acetaminophen 325 Mg Tablet PO Q4H PRN Mild Pain (1-3) or Fever Amlodipine Besylate 5 mg 07/27/25 17:00 07/27/25 17:18 Amlodipine Besylate 5 Mg Tablet PO 5 mg BID MELINA Administration Atorvastatin Calcium 20 mg 07/27/25 14:00 07/27/25 17:18 Atorvastatin 20 Mg Tablet PO 20 mg DAILY MELINA Administration Cephalexin HCl 250 mg 07/27/25 21:00 07/27/25 20:45 Cephalexin 250 Mg Capsule PO 250 mg HS MELINA Administration Dextrose 12.5 gm 07/27/25 13:32 Dextrose 50% 25 Gm/50 Ml Syringe IV PUSH PRN PRN Hypoglycemia Protocol Ezetimibe 10 mg 07/28/25 09:00 Ezetimibe 10 Mg Tablet PO DAILY MELINA Enoxaparin Sodium 40 mg 07/27/25 14:00 07/27/25 17:18 Enoxaparin 40 Mg/0.4 Ml Syringe SUB-Q 40 mg DAILY@1400 MELINA Administration Glucagon 1 mg 07/27/25 13:32 Glucagon For Inj 1 Mg Vial IM PRN PRN Hypoglycemia Protocol Glucose 15 gm 07/27/25 13:32 Glucose Oral Gel 15 Gm Of Glucse In 37.5 Gm Tube PO PRN PRN Hypoglycemia Protocol Dextrose 1,000 mls @ 100 mls/hr 07/27/25 13:32 Dextrose 5% 1,000 Ml IVPB PRN PRN Hypoglycemia Protocol Insulin Aspart 2 - 5 units 07/27/25 17:00 07/27/25 17:17 Insulin Aspart (*Bkc) 100 Units/Ml SUB-Q Not Given TIDWM MELINA Protocol Insulin Aspart 1 - 2 units 07/27/25 21:00 07/27/25 19:45 Insulin Aspart (*Bkc) 100 Units/Ml SUB-Q Not Given HS [facility] Protocol Nebivolol 5 mg 07/28/25 09:00 Nebivolol Hcl 5 Mg Tablet PO DAILY [facility] Ondansetron HCl 4 mg 07/27/25 07:12 Ondansetron Inj 4 Mg/2 Ml Vial IV PUSH Q4H PRN Nausea Terbinafine HCl 250 mg 07/28/25 09:00 Terbinafine Hcl 250 Mg Tablet PO Q96H [facility] Vitamin B Complex 1 cap 07/29/25 09:00 Vitamin B Complex Capsule PO SuTuWeFrSa@0900 [facility] Vitamin D 125 mcg 07/28/25 09:00 Cholecalciferol (Vitamin D3) 125 Mcg (5,000 Units) Tablet PO DAILY [facility] Radiology Results: ITS Impressions Head CT 07/27/25 06:37 IMPRESSION: CT HEAD: 1. No acute intracranial findings. CTA NECK: 1. No significant ICA stenosis or other acute arterial abnormality. 2. 40% stenosis left ICA. CTA HEAD: 1. No large vessel arterial occlusive disease or other acute findings. 2. No aneurysms. Head/Neck CTA 07/27/25 06:37 IMPRESSION: CT HEAD: 1. No acute intracranial findings. CTA NECK: 1. No significant ICA stenosis or other acute arterial abnormality. 2. 40% stenosis left ICA. CTA HEAD: 1. No large vessel arterial occlusive disease or other acute findings. 2. No aneurysms. Labs Labs: Laboratory Results - last 24 hr 07/27/25 07/27/25 07/27/25 11:34 16:46 19:44 POC Capillary Glucose 164 H 123 H 178 H
[2025-07-28 08:11] LABS: Cholesterol 189 mg/dL (0-200); HDL Direct 51 mg/dL; Triglycerides 191 mg/dL (<150)
[2025-07-28] MEDS: TERBINAFINE HCL 250 MG TABLET PO (09:58)
[2025-07-28] MEDS: EZETIMIBE 10 MG TABLET PO (09:58)
[2025-07-28] MEDS: ATORVASTATIN 20 MG TABLET PO (09:58)
[2025-07-28] MEDS: CLOPIDOGREL BISULFATE 75 MG TABLET PO (09:58)
[2025-07-28] MEDS: ASPIRIN 81 MG ENTERIC TABLET PO (09:58)
[2025-07-28] MEDS: NEBIVOLOL HCL 5 MG TABLET PO (09:59)
[2025-07-28] MEDS: CHOLECALCIFEROL (VITAMIN D3) 125 MCG (5,000 UNITS) TABLET PO (09:59)
[2025-07-28] MEDS: ENOXAPARIN 40 MG/0.4 ML SYRINGE SUB-Q (14:19)
--- NOTE | 2025-07-28 14:49 | WPDNEURCNPN ---
Assessment and Plan Assessment and plan (1) Acute CVA (cerebrovascular accident): Code(s): I63.9 - Cerebral infarction, unspecified Status: Acute Assessment and Plan: MRI of the brain shows an infarct in the left thalamic area however patient's symptoms were predominantly diplopia and blurring of the vision and some sense of imbalance. Initially he was found to have some ptosis and a weakness of the movement of the muscles in the right eye but in view of that now he has double vision on both sides with things looking slanted on to each other suggestive of possible 4th cranial nerve palsy however possibility of ocular myasthenia need be considered view of the changes in the findings in a short term. The possibility of some of the branches of the basilar artery near the bifurcation which may fly thalamus and as well as the mid brain can be involved hence anti-platelet agents and statins should be used. I shall be glad to see the patient for follow-up in my office in 6-8 weeks time. He should be instructed to come to the emergency room should he develop any other additional symptoms . An extension of the stroke and occur in 2-5 days or recurrence of the stroke can occur in some cases. I believe the patient is anxious to go home and hence the instructions should be given to the patient. (2) Benign hypertension with chronic kidney disease: Code(s): I12.9 - Hypertensive chronic kidney disease with stage 1 through stage 4 chronic kidney disease, or unspecified chronic kidney disease Status: Acute (3) History of diabetes mellitus: Code(s): Z86.39 - Personal history of other endocrine, nutritional and metabolic disease Status: Acute Assessment and Plan: The patient states that his diabetes has been fairly well controlled usually with a hemoglobin A1c around 6-6.5. (4) Diplopia: Code(s): H53.2 - Diplopia Status: Acute Assessment and Plan: This is also off acute onset as discussed above. This will be followed up. Plan As discussed above I would like to see the patient for follow-up in my office in 6 weeks time. I have reviewed the MRI of the brain as well as angiogram agree with the findings. I did not see any stroke in the midbrain or pontine area. He is now on aspirin 81 mg a day, Plavix 75 mg a day and Lipitor the dose has been increased to 40 mg a day. Consult date: 07/28/25 HPI: Calin Lerma is a 75 year old male With history of diabetes mellitus for last 20-30 years presented with the blurring of the vision and drooping of the right eyelid and was thought to have 3rd cranial nerve palsy however the ptosis and the eye movement have improved nevertheless the patient still feels that he has a sense of imbalance and also in looking around he sees double or feels that the things are slanted on to each other particularly in the extreme gaze on the right or left side. No difficulty speech or swallowing. The patient has history of chronic kidney disease. There is also history of cancer of the kidney for which he had was operated. His heart rate was found to be around 58. CT scan of the brain did not show any significant abnormal findings were however CT angiogram of the head and neck shows 40% narrowing of the left internal carotid artery. A significant calcification noted in the bulb. Last LDL was 88. His B12 level was normal. MRI of the brain shows acute left thalamic infarct. There is no history of prior stroke. No recent illness. The patient also complains of some blurring of the vision and double vision. Review of Systems Review of Systems: All systems reviewed & are unremarkable except as noted in HPI and below PMFSH Past Medical History Medical History (Updated 07/28/25 @ 12:57 by JOHN Barreto) Loose stools Early satiety Gas bloat syndrome Abdominal pain Family history of colon cancer in mother Gout Rheumatoid arthritis History of renal cell carcinoma History of hyperlipidemia History of diabetes mellitus History of hypertension Surgical History Surgical History History of right nephrectomy Social History Social History Social History: caffeine use, 2 cups of coffee per day Smoking packs per day: 1 Smoking cigarettes per day: 20.0 Years smoked: 30 Smoking pack-years: 30.00 Smoking status: Former smoker Alcohol intake: never Substance use: never Substance use type: does not use Other substance usage details: 2.5 mg gummy to sleep Do You Feel Safe in your Home?: Yes Lack of Transportation: No Lack of Food: Never True Current Housing: I Have Housing Concerned About Future Housing: No Difficulty Paying Gas/Electric Bills: No Difficulty Paying for Meds: No Currently Unemployed: No Education: High School Diploma/GED Difficulty w/ Childcare or Family Care: No Living arrangements: with family Gender identity (if verbalized by the patient): Male Sexual Orientation (if Verbalized by the Patient): Straight or Heterosexual Spiritual care concerns: No Meds Home Medications and Allergies Home Medications ?Medication ?Instructions ?Recorded ?Confirmed ?Type lactobacillus combination no.4 3 3,000 mmu cells PO DAILY 05/04/22 07/27/25 History billion cell capsule (Probiotic) cholecalciferol (vitamin D3) 125 125 mcg PO DAILY 10/03/23 07/27/25 History mcg (5,000 unit) capsule vitamin B complex 1 cap PO DAILY 10/03/23 07/27/25 History mecobalamin (vitamin B12) 10,000 1,000 mcg IM MONTHLY 09/27/24 07/27/25 History mcg solution for injection terbinafine HCl 250 mg tablet 250 mg PO .COMPLEX 10/31/24 07/27/25 History cephalexin 250 mg capsule 250 mg PO DAILY 11/07/24 07/27/25 History metformin 500 mg tablet,extended 500 mg PO BID #180 tabs 11/07/24 07/27/25 Rx release 24 hr blood sugar diagnostic (Accu-Chek #100 ea 11/25/24 07/27/25 Rx SmartView Test Strips) ezetimibe 10 mg tablet (Zetia) 10 mg PO DAILY #90 tabs 01/27/25 07/27/25 Rx mupirocin 2 % topical ointment 1 applic topical BID #15 grams 05/19/25 07/27/25 Rx (Centany) lancets (Accu-Chek Fastclix Lancet #100 ea 05/20/25 07/27/25 Rx Drum) amlodipine 5 mg tablet 5 mg PO BID #180 tabs 07/14/25 07/27/25 Rx nebivolol 5 mg tablet 5 mg PO DAILY #90 tabs 07/16/25 07/27/25 Rx Allergies Allergy/AdvReac Type Severity Reaction Status Date / Time aspirin Allergy Mild HIVES Verified 07/27/25 09:55 eggplant Allergy Hives Verified 07/27/25 09:55 semaglutide (From Rybelsus) AdvReac Severe Nausea;diar Verified 07/27/25 09:55 moses ARB-Angiotensin Receptor AdvReac Intermediate nephrectomy, Verified 07/27/25 09:55 Antagonist ckd CAYDEN Inhibitors AdvReac nephrectomy, Verified 07/27/25 09:55 ckd Vital Signs Vital Signs - 24 hr 07/27/25 16:00 07/27/25 18:17 07/27/25 19:47 Temperature 98.0 F Pulse Rate 57 L 54 L Respiratory Rate 16 Blood Pressure 141/70 H Pulse Oximetry 98 Oxygen Delivery Room Air 07/27/25 20:00 07/27/25 20:00 07/28/25 00:00 Temperature Pulse Rate 53 L 45 L Respiratory Rate Blood Pressure Pulse Oximetry Oxygen Delivery Room Air 07/28/25 04:00 07/28/25 04:26 07/28/25 08:00 Temperature 97.7 F Pulse Rate 51 L 57 L 61 Respiratory Rate 17 Blood Pressure 142/74 H Pulse Oximetry 99 Oxygen Delivery 07/28/25 09:59 07/28/25 10:00 07/28/25 12:00 Temperature Pulse Rate 62 63 Respiratory Rate Blood Pressure Pulse Oximetry Oxygen Delivery Room Air 07/28/25 14:00 Temperature 98.1 F Pulse Rate 62 Respiratory Rate 16 Blood Pressure 122/70 Pulse Oximetry 99 Oxygen Delivery Exam Const: General: cooperative, healthy appearing and comfortable HENMT: Head: atraumatic Mouth: Yes oropharynx normal Eyes: Alignment and Position: alignment normal and position normal EOM: EOMs intact bilaterally Other: No apparent ptosis or extraocular pulses were noted however patient reported seeing things slanted on the right as well as left extreme gaze and also at angles. Neck: Neck: normal visual inspection and supple Resp: Effort & Inspection: normal respiratory effort Cardio: Heart sounds: S1 normal heart sound present and S2 normal heart sound present Skin: General skin exam: normal color Neuro: Cranial nerves: Yes CN's II-XII intact bilaterally, Yes facial symmetry and Yes Midline tongue present Cognition (Neuro): normal cognition Speech: normal speech Gait exam (Neuro): Normal gait present Sensory Exam: normal sensation Coordination: [id number] test normal and Normal rapid alternating movements of the distal upper extremity present (Neuro) Extrem: General: normal to inspection Psych: Appearance: well kempt Mental Status: mental status grossly normal Speech and movement: Normal speech and movement present Affect: normal affect Thought process: Normal thought process present Thought content: Yes Normal thought content present Insight: Good insight present (Psych) Judgement: Good judgement present (Psych) Results Labs 07/27/25 06:07 07/27/25 07:12
[2025-07-28] MEDS: CEPHALEXIN 250 MG CAPSULE PO (19:59)
[2025-07-29] VITALS: PULSE 46
[2025-07-29 04:00] VITALS: PULSE 48
[2025-07-29 04:23] VITALS: BP 148/85; PULSE 56; RESP 20; TEMP 36.5; O2SAT 99
[2025-07-29 08:00] VITALS: PULSE 64
[2025-07-29] MEDS: EZETIMIBE 10 MG TABLET PO (08:22)
[2025-07-29] MEDS: ATORVASTATIN 40 MG TABLET PO (08:22)
[2025-07-29] MEDS: CHOLECALCIFEROL (VITAMIN D3) 125 MCG (5,000 UNITS) TABLET PO (08:22)
[2025-07-29 08:23] VITALS: PULSE 60
[2025-07-29] MEDS: CLOPIDOGREL BISULFATE 75 MG TABLET PO (08:23)
[2025-07-29] MEDS: ASPIRIN 81 MG ENTERIC TABLET PO (08:23)
[2025-07-29] MEDS: VITAMIN B COMPLEX CAPSULE 1 CAP PO (08:23)
[2025-07-29] MEDS: NEBIVOLOL HCL 5 MG TABLET PO (08:23)
--- NOTE | 2025-07-29 08:58 | P.CONCA_ITS ---
<Statement entered by Sha Kumari MD - 07/29/25 13:24> This documentation has been reviewed and approved. Patient was examined at the bedside. Chart, laboratory data and imaging reviewed. Agree with assessment and recommendations provided by rounding nurse practitioner. Agree with aspirin and Plavix for 1 month followed by aspirin rest of his life. If patient has recurrent stroke, more aggressive management would be needed including consideration for PFO closure. Agree with 30 day event monitor as an outpatient. Keep blood pressure goal CT or below 130/80 Agree with high-intensity statin for now. Sha Kumari MD Assessment and Plan Assessment and plan (1) Acute CVA (cerebrovascular accident): Code(s): I63.9 - Cerebral infarction, unspecified Status: Acute Assessment and Plan: Presented with blurred/double vision and a sense of imbalance. MRI of the brain shows an infarct in the left thalamic area. * Neuro following - recommend ASA, plavix x 1 month followed by ASA indefinitely * High intensity statin * Outpatient follow up with neurology (2) History of hypertension: Code(s): Z86.79 - Personal history of other diseases of the circulatory system Status: Acute Assessment and Plan: Continue amlodipine, bystolic (3) PFO (patent foramen ovale): Code(s): Q21.12 - Patent foramen ovale Status: Acute Assessment and Plan: TTE showed 20-30 bubble shunt to left side cardiac chambers which probably represents moderate size PFO. * Do not recommend any further workup in this regard as further testing would not impact management (he is not a candidate for PFO closure given his age). * CAROL would not alter management * Recommend ASA and high intensity statin which he is already taking * Will order 30 day outpatient tele monitor to rule out atrial fibrillation. History of Present Illness History of Present Illness Consult date/time: 07/29/25 08:58 Requesting physician: Hui Hagen PA Consult reason: Other (PFO) Reason For Visit: acute cranial nerve 3 palsy and diplopia Narrative: Calin Lerma is a 75 year old male with history of renal cell carcinoma, hyperlipidemia, diabetes mellitus type 2, and hypertension. This is a patient who presented to the emergency department with complaint of double vision and blurred vision. Cardiology is consulted because of a positive buble study TTE. [facility] Past Medical History Medical History (Updated 07/29/25 @ 09:13 by SARA Mckeon) Loose stools Early satiety Gas bloat syndrome Abdominal pain Family history of colon cancer in mother Gout Rheumatoid arthritis History of renal cell carcinoma History of hyperlipidemia History of diabetes mellitus History of hypertension Surgical History Surgical History History of right nephrectomy Social History Social History Social History: caffeine use, 2 cups of coffee per day Smoking packs per day: 1 Smoking cigarettes per day: 20.0 Years smoked: 30 Smoking pack-years: 30.00 Smoking status: Former smoker Alcohol intake: never Substance use: never Substance use type: does not use Other substance usage details: 2.5 mg gummy to sleep Do You Feel Safe in your Home?: Yes Lack of Transportation: No Lack of Food: Never True Current Housing: I Have Housing Concerned About Future Housing: No Difficulty Paying Gas/Electric Bills: No Difficulty Paying for Meds: No Currently Unemployed: No Education: High School Diploma/GED Difficulty w/ Childcare or Family Care: No Living arrangements: with family Gender identity (if verbalized by the patient): Male Sexual Orientation (if Verbalized by the Patient): Straight or Heterosexual Spiritual care concerns: No Meds Home Medications and Allergies Home Medications ?Medication ?Instructions ?Recorded ?Confirmed ?Type lactobacillus combination no.4 3 3,000 mmu cells PO DA BRYSON 05/04/22 07/27/25 History billion cell capsule (Probiotic) cholecalciferol (vitamin D3) 125 125 mcg PO DAILY 06/1807/27/25 History mcg (5,000 unit) capsule vitamin B complex 1 cap PO DAILY 10/03/2311/19 History mecobalamin (vitamin B12) 10,000 1,000 mcg IM MONTHLY 09/27/24 07/27/25 History mcg solution for injection terbinafine HCl 250 mg tablet 250 mg PO .COMPLEX 10/3107/27/25 History cephalexin 250 mg capsule 250 mg PO DAILY 11/07/2411/19 History metformin 500 mg tablet,extended 500 mg PO BID #180 ta bs 11/07/24 07/27/25 Rx release 24 hr blood sugar diagnostic (Accu-Chek #100 ea 11/25/2411/19 Rx SmartView Test Strips) ezetimibe 10 mg tablet (Zetia) 10 mg PO DAILY #90 tabs 01/27/25 07/27/25 Rx mupirocin 2 % topical ointment 1 applic topical BID #1 5 grams 05/19/25 07/27/25 Rx (Centany) lancets (Accu-Chek Fastclix Lancet #100 ea 05/20/25 Rx Drum) amlodipine 5 mg tablet 5 mg PO BID #180 tabs 07/27/25 Rx nebivolol 5 mg tablet 5 mg PO DAILY #90 tabs 07/1607/27/25 Rx aspirin 81 mg tablet,delayed 81 mg PO QAM 30 days #30 tabs 07/29/25 Rx release atorvastatin 40 mg tablet 40 mg PO DAILY 30 days #30 t abs 07/29/25 Rx clopidogrel 75 mg tablet 75 mg PO QAM 19 days #19 tab s 07/29/25 Rx Allergies Allergy/AdvReac Type Severity Reaction Status Date / Time aspirin Allergy Mild HIVES Verified 07/27/25 09:55 eggplant Allergy Hives Verified 07/27/25 09:55 semaglutide (From Rybelsus) AdvReac Severe Nausea;diar Verified 07/27/25 09:55 moses ARB-Angiotensin Receptor AdvReac Intermediate nephrectomy, Verified 07/27/25 09:55 Antagonist ckd CAYDEN Inhibitors AdvReac nephrectomy, Verified 07/27/25 09:55 ckd Vital Signs Vital Signs - 24 hr 07/28/25 09:59 07/28/25 10:00 07/28/25 12:00 Temperature Pulse Rate 62 63 Respiratory Rate Blood Pressure Pulse Oximetry Oxygen Delivery Room Air 07/28/25 14:00 07/28/25 16:00 07/28/25 19:44 Temperature 36.7 C 36.2 C L Pulse Rate 62 53 L 60 Respiratory Rate 16 20 Blood Pressure 122/70 139/86 Pulse Oximetry 99 97 Oxygen Delivery 07/28/25 20:00 07/28/25 20:00 07/29/25 00:00 Temperature Pulse Rate 52 L 46 L Respiratory Rate Blood Pressure Pulse Oximetry Oxygen Delivery Room Air 07/29/25 04:00 07/29/25 04:23 07/29/25 08:02 Temperature 36.5 C Pulse Rate 48 L 56 L Respiratory Rate 20 Blood Pressure 148/85 H Pulse Oximetry 99 Oxygen Delivery Room Air 07/29/25 08:23 Temperature Pulse Rate 60 Respiratory Rate Blood Pressure Pulse Oximetry Oxygen Delivery Results Labs and Meds 07/27/25 06:07 07/27/25 07:12 Lab results: Intake and Output 07/28/25 07/29/25 07/29/25 23:59 07:59 15:59 Intake Total 1680 500 240 Balance 1680 500 240 Intake: Oral 1680 500 240 Other: # Unmeasured Voids 4 4 Number of Bowel Movements Today 3
--- NOTE | 2025-07-29 11:06 | P.DS_ITS ---
DS: Admitting Diagnosis Discharge Date 07/29/25 Admitting Diagnosis - acute CVA - history hypertension - history of nephrectomy DS: Discharge Diagnosis Discharge Diagnosis (1) Acute CVA (cerebrovascular accident): Code(s): I63.9 - Cerebral infarction, unspecified Status: Acute (2) History of hypertension: Code(s): Z86.79 - Personal history of other diseases of the circulatory system Status: Acute (3) History of diabetes mellitus: Code(s): Z86.39 - Personal history of other endocrine, nutritional and metabolic disease Status: Acute (4) History of nephrectomy: Code(s): Z90.5 - Acquired absence of kidney Status: Acute DS: Summary Hospital Course Reason for hospitalization: - acute CVA - history hypertension - history of nephrectomy Hospital Course: Maria Guadalupe Layton is a 75 yo male with past medical history of renal cell carcinoma status post nephrectomy chronic kidney disease, hypertension, diabetes is admitted through emergency room with complaints of having blurry vision/double vision. In ED, CT head no acute process. CTA head and neck with 40% stenosis L ICA, no large vessel occlusion. Patient was further evaluation management. Upon admission, MRI brain was obtained which showed acute infarct in left thalamus. Patient was started on dual anti-platelet therapy and statin. Neurology was consulted and felt that symptoms related to cranial nerve palsy versus CVA versus ocular myasthenia gravis. Recommended to continue DAPT x21 days, then ASA 81 mg thereafter. Continue statin. Follow-up with neurology as outpatient in 6-8 weeks. At this appointment, will determine follow-up with Neuro-Ophthalmology is needed. Myasthenia gravis panel pending on discharge. Patient had no other focal deficits in regards to stroke. PT/OT recommended home. Patient's symptoms were improving on day of discharge. Patient was instructed not to drive until visual symptoms resolved. Echo showed EF 60 65%, G1 DD, positive bubble study suggestive of PFO. Cardiology was consulted and did not recommend further work-up at this time given patient's age. Will consider further workup and management in the outpatient setting if recurrent strokes occurred. Recommended 30 day event monitor. Patient was discharged home in stable condition. Strict return precautions discussed. He will follow up with Neurology and his primary care provider. Status at Discharge Functional status at discharge: independent ambulation Time Spent with Patient Time attestation: Total time spent providing and/or coordinating discharge services: Time spent: Greater than 30 minutes Exam Narrative: General: NAD Eyes: EOMI ENT: neck supple Cardiovascular: Regular rate and rhythm Respiratory: Clear to auscultation, respirations even and unlabored on RA Gastrointestinal: Soft, non tender Genitourinary: no suprapubic tenderness Musculoskeletal: No edema Skin: warm, dry Neuro: Alert and oriented x4. Cranial nerves II-XII intact. Face symmetric. Speech clear. Psych: Mood appropriate DS: Data Data Completed and Pending Completed studies during hospitalization: ITS Impressions Head CT 07/27/25 06:37 IMPRESSION: CT HEAD: 1. No acute intracranial findings. CTA NECK: 1. No significant ICA stenosis or other acute arterial abnormality. 2. 40% stenosis left ICA. CTA HEAD: 1. No large vessel arterial occlusive disease or other acute findings. 2. No aneurysms. Head/Neck CTA 07/27/25 06:37 IMPRESSION: CT HEAD: 1. No acute intracranial findings. CTA NECK: 1. No significant ICA stenosis or other acute arterial abnormality. 2. 40% stenosis left ICA. CTA HEAD: 1. No large vessel arterial occlusive disease or other acute findings. 2. No aneurysms. Brain MRI 07/28/25 06:57 IMPRESSION: 1. Acute infarct in the left thalamus. Labs on day of discharge: Labs from last 24 hours 07/29/25 07/28/25 07/28/25 07:31 19:37 16:42 POC Capillary Glucose 122 H 145 H 95 Striated Muscle Ab Striated Muscle Ab Ttr Acetylchol Rcpt Block Ab Acetylchol Rcpt Bind Ab Acetylchol Rcpt Modu Ab MuSK Reflex Information 07/28/25 07/28/25 07/28/25 11:38 07:33 07:33 POC Capillary Glucose 106 H Striated Muscle Ab Striated Muscle Ab Ttr Acetylchol Rcpt Block Ab Acetylchol Rcpt Bind Ab Pending Acetylchol Rcpt Modu Ab Pending Cancelled MuSK Reflex Information Pending 07/28/25 07/28/25 07/28/25 07:33 07:33 07:33 POC Capillary Glucose Striated Muscle Ab Pending Cancelled Striated Muscle Ab Ttr Cancelled Acetylchol Rcpt Block Ab Pending Cancelled Acetylchol Rcpt Bind Ab Cancelled Acetylchol Rcpt Modu Ab MuSK Reflex Information Discharge Plan Discharge Attending physician on discharge: Duane Cool Oca Consulting providers: Lawson Anderson; Hui Hagen; Tyesha Somers Discharging Clinician: Hui Hagen Anticipated Discharge Date/Time: 07/29/25 10:56 Patient Disposition: Home Activity: unlimited Diet: regular Discharge Instructions: Diagnosis:?Acute thalamic ischemic stroke causing potentially affecting the cranial nerve to your eye. You were also found to have a likely small patent foramen ovale (hole in your heart). Medications: * Aspirin and clopidogrel (Plavix):?Take both medications daily for 21 days as prescribed. This combination helps lower the risk of another stroke in the early recovery period. * After 21 days:?Stop clopidogrel and continue aspirin alone, as long-term dual therapy increases bleeding risk without added benefit. Follow-up: * Neurology:?Schedule and attend your outpatient neurology appointment for 6-8 weeks. Bring all medication lists and any questions about your recovery. * You do not need to follow-up with an television technician at this time. If you are still having visual disturbances at your follow-up with Neurology, Dr. Wright will refer you to a neuro-television technician. * Cardiology does not recommend any repair to the small hole in you heart, but they did recommend a cardiac event monitor for 30 days to rule out arrhythmia which may put you at risk for stoke. This can be picked up in their office on the first floor of the hospital. Warning signs?seek immediate medical attention for: * Sudden weakness, numbness, or difficulty speaking. * New or worsening headache. * Sudden vision changes. * Signs of bleeding (unusual bruising, blood in urine or stool, nosebleeds). Secondary prevention and recovery: * Blood pressure, cholesterol, and diabetes:?Take all prescribed medications and monitor these conditions closely, as controlling them reduces stroke risk. * Lifestyle:?Eat a healthy diet, exercise as tolerated, avoid tobacco and excessive alcohol. * Rehabilitation:?Continue physical, occupational, and speech therapy as recommended to maximize recovery. * Monitor for post-stroke complications:?Watch for changes in mood, cognition, swallowing, or mobility. Report any concerns to your healthcare team. Medication safety: * Take medications exactly as prescribed. Do not stop or change doses without consulting your doctor. * Inform all healthcare providers that you are taking antiplatelet medications. Additional instructions: * Bring this document to all medical appointments. * Keep a list of all current medications. * If you miss a dose, take it as soon as you remember unless it is almost time for your next dose. Do not double up. Contact information: * For urgent symptoms, call 911. * For non-urgent questions, contact your neurology clinic. These instructions are based on current stroke prevention guidelines and clinical evidence for optimal recovery and secondary prevention. Patient Instructions: Antibiotic Form, Aspirin (By mouth), Atorvastatin (By mouth), Clopidogrel (By mouth), Stroke (DC), Blood Thinners (DC) Patient Language: Lithuanian Stand Alone Forms: General Discharge Information Follow-up/Referrals: Tyesha Somers APN-C [Advanced Practice Nurse, Cardiology] Referral Note: call as needed for concerns about personnel monitor Jenna Alfaro MD [Primary Care Provider, Family Practice] - Call for Appointment Referral Note: in 5-7 days Lawson Anderson MD [Physician, Neurology] - Call for Appointment Referral Note: make an appointment in 6-8 weeks Discharge Medications: New atorvastatin 40 mg Tablet 40 mg PO DAILY 30 Days Qty: 30 0RF clopidogrel 75 mg Tablet 75 mg PO QAM 19 Days Qty: 19 0RF aspirin 81 mg Tablet,Delayed Release (Dr/Ec) 81 mg PO QAM 30 Days Qty: 30 0RF Continued mecobalamin (vitamin B12) 10,000 mcg recon soln 1,000 mcg IM MONTHLY mupirocin [Centany] 2 % ointment 1 applic topical BID Qty: 15 0RF cholecalciferol (vitamin D3) 125 mcg (5,000 unit) capsule 125 mcg PO DAILY vitamin B complex Capsule 1 cap PO DAILY Patient Comments: Pt states he takes it 5 days a week: Sun, Tues, Wed, Fri, Sat terbinafine HCl 250 mg tablet 250 mg PO .COMPLEX Patient Comments: Takes once every 4 days Rx Instructions: 250 mg orally once every 4 days; cephalexin 250 mg capsule 250 mg PO DAILY metformin 500 mg tablet extended release 24 hr 500 mg PO BID Qty: 180 3RF Probiotic 3 billion cell Capsule 3,000 mmu cells PO DAILY Rx Instructions: administer with a meal (DME) Accu-Chek SmartView Test Strip Strip See Rx Instructions .Route Qty: 100 3RF Rx Instructions: check blood glucose levels QD ezetimibe [Zetia] 10 mg tablet 10 mg PO DAILY Qty: 90 2RF (DME) lancets [Accu-Chek Fastclix Lancet Drum] Misc See Rx Instructions .Route Qty: 100 2RF Rx Instructions: Use to check BS once daily amlodipine 5 mg tablet 5 mg PO BID Qty: 180 1RF nebivolol 5 mg tablet 5 mg PO DAILY Qty: 90 3RF Other Ambulatory Orders: CA cardiac event monitor (Routine) Timeframe: 1 Month Location: [facility] Cardiology Ordered By: Tyesha Somers Date of admission: 07/28/25 10:22 Primary Care Provider: Jenna Alfaro Admitting Provider: Ismael Varma Attending physician on admission: Ismael Varma Condition: Stable
== END 2025-07-29 11:40 | disposition home or self-care (01) | DRG 65 ==
LOC: ANHED 06:58 → ANH3MEDSUR 08:38 → ANH2MED 09:21
PROVIDERS: Physician Assistant; Psychiatry & Neurology Neurology; Admitting Provider Internal Medicine; Emergency Provider Student in an Organized Health Care Education/Training Program; PCP Family Medicine; Visit Provider Student in an Organized Health Care Education/Training Program
DX: I63.9 Cerebral infarction, unspecified (principal); Q21.12 Patent foramen ovale; Z90.5 Acquired absence of kidney; Z85.528 Personal history of other malignant neoplasm of kidney; H53.2 Diplopia; E11.22 Type 2 diabetes mellitus with diabetic chronic kidney disease; E78.5 Hyperlipidemia, unspecified; H49.01 Third [oculomotor] nerve palsy, right eye; H53.8 Other visual disturbances; I12.9 Hypertensive chronic kidney disease with stage 1 through stage 4 chronic kidney disease, or unspecified chronic kidney disease; M10.9 Gout, unspecified; M06.9 Rheumatoid arthritis, unspecified; N18.9 Chronic kidney disease, unspecified; Z79.84 Long term (current) use of oral hypoglycemic drugs; Z87.891 Personal history of nicotine dependence; Z79.82 Long term (current) use of aspirin; Z79.01 Long term (current) use of anticoagulants
CPT/HCPCS: 36415; 70450; 70496; 70498; 70553; 80053; 80061; 82948; 83036; 84484; 85025; 93005; 93306; 96375; 97161; 99285; A9270; A9577; G0378; J1650; Q9967

== ENCOUNTER 2025-09-12 15:01 | Emergency (ER) | payer MEDICARE, SELFPAY ==
[2025-09-12] VITALS (11 sets, daily range): BP systolic 142–150; BP diastolic 69–78; PULSE 50–63; RESP 13–20; TEMP 36.2; O2SAT 96–99
--- NOTE | ~2025-09-12 | XR_ITS ---
EXAMINATION: XR chest 2V DATE: 09/12/2025 15:33 INDICATION: Chest pain TECHNIQUE: Frontal and lateral views of the chest were obtained. COMPARISON: December 09, 2021 FINDINGS: Granulomatous changes right lung base. Lungs are clear. Heart size normal. Bones appear intact. No pneumothorax or subphrenic free air seen. IMPRESSION: 1. No focal acute process. Reviewed, dictated and finalized at location A. ALL WORKER IMPRESSION: 1. No focal acute process.
--- NOTE | ~2025-09-12 | US_ITS ---
EXAMINATION: US venous doppler LE , 09/12/2025 16:45 MANAGER PUBLISHING HISTORY: swelling Comparison: None Technique: Quinones-scale and color Doppler images were attempted of the lower saphenofemoral junction, common femoral vein,superficial femoral vein, proximal deep femoral vein, proximal deep femoral vein, popliteal vein and posterior tibial veins. Findings: Deep Venous System:Normal flow, augmentation and compressibility. No echogenic thrombus identified. The contralateral saphenofemoral junction appears unremarkable. Superficial Venous SystemNo superficial thrombophlebitis. Soft tissues: Soft tissues are unremarkable. Impression: Negative for DVT. Reviewed, dictated and finalized at location P. GER PUBLISHING Impression: Negative for DVT.
--- NOTE | 2025-09-12 15:02 | ECG_ITS ---
Test Date: 2025-09-12 15:11:37 Measurements Intervals [place] Rate: 59 P: 133 NM: 242 QRS: 259 QRSD: 97 T: 134 QT: 415 QTc: 412 Interpretive Statements SINUS BRADYCARDIA WITH FIRST DEGREE AV BLOCK ARM LEADS REVERSED INCOMPLETE RIGHT BUNDLE BRANCH BLOCK PATTERN CONSISTENT WITH PULMONARY DISEASE INFERIOR INFARCT, AGE INDETERMINATE BASELINE ARTIFACT- I, II, III, AVR, AVL, AVF, V3 ABNORMAL ECG Compared to ECG 07/27/2025 06:05:18 First degree AV block now present Electronically Signed On 09-12-2025 15:20:09 HAUL DRIVER by Laureano Allison D.O.
--- OUTSIDE RECORDS SUMMARY | 2025-09-12 15:03 | XMS_ITS | Clinical Summary ---
Author Organization [facility] Address [address] [place] [address] Phone Care Team Providers Care Oral And Maxillofacial Surgery Name Role Phone Jenna Alfaro MD Primary Care Provider [phone] Allergies Active Allergy Reactions Criticality Noted Date [...] Encounters Date Type Department Care Team Description 09/09/2025 External Device Data [facility] ABSTRACTION Provider, Abstract 07/15/2025 External Device Data [facility] ABSTRACTION Provider, Abstract [...] Description 05/01/2026 8:30 AM CDT Office Visit [facility] - [place] [address] [place] [address] Aureliano Parks MD [address] [facility] [address] [place] [address] Health Maintenance Due Date Last Done Comments DIABETES ANNUAL FOOT EXAM 02/25/1970 DIABETES ANNUAL RETINAL EXAM 02/25/1970 DIABETES MICROALBUMIN ANNUAL SCREEN 02/25/1970 LDL CHOLESTEROL ANNUAL 02/25/1970 FIT-DNA Q 3 years 02/25/1997 FIT/FOBT Q 1 year 02/25/1997 Flex Sig/CT Colonography Q 5 years 02/25/1997 RSV VACCINE (60+ or ) (1 - Risk 50-74 years 1-dose series) 02/25/2002 Abdominal Aortic Aneurysm (A AA) Screening 02/25/2017 [...] exists Insurance MEDICARE PART A AND B [employer] [facility] SUPP Care Teams Oral And Maxillofacial Surgery Relationship Specialty Start Date End Date Jenna Alfaro MD [facility] [address] [id number] PCP - General Family Practice 04/25/24
--- OUTSIDE RECORDS SUMMARY | 2025-09-12 15:03 | XMS_ITS | Data Portability ---
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 Name Role Phone XANDER PACE Primary Care Provider XANDER PACE Referring Provider Assessment Encounter Date Assessment Date Assessment LastModified [...] months diagnosis in assessment and plan discussed [email or web address] Not available 05/14/2023 21:59:05 07/27/2023 07/27/2023 This was erroneously put in as an office visit this was just them coming in to tell me they were switching all their physicians to another medical group and that they were appreciative of my care through this past years [email or web address] Not available 09/22/2023 12:55:58 Plan of Treatment [...] 1,000 mcg/mL injection solution 2022 023 [id number], [address], [place], [address], 11:49:06 cyanocobala min (vit B-12) 1,000 mcg/mL injection solution 2022 023 [email or web address] [id number], [address], [place], [address], 13:11:42 cyanocobala min (vit B-12) 1,000 mcg/mL injection solution 2022 023 [email or web address] Not available 11:34:29 Patient TargetsNo targets recorded. Patient InstructionsNo instructions recorded. Reason for Referral None Reported. Results Created Date Observation Date Name Description Value Unit Range Abnormal Flag Note LastModifiedBy Organization Detail LastModifiedTime 04/17/2004/17/2023 CBC/C OMPLE TE BLD COUNT W/DIF F white blood cells 4.9 x10'3 /uL 4.2-10 .8 Not Available [facility] (Lab) [address] [place], [address], 04/17/2023 12:41:23 04/17/20 23 04/17/2023 CBC/C OMPLE TE BLD COUNT W/DIF F red blood cells 4.48 x10'6 /uL 4.10-5 .80 Not Available [facility] (Lab) [address] [place], [address], 04/17/2023 12:41:23 04/17/2004/17/2023 CBC/C OMPLE TE BLD COUNT W/DIF F hemoglobin 13.2 g/dL 13.2-1 7.0 Not Available [facility] (Lab) [address] [place], [address], 04/17/2023 12:41:23 04/17/2004/17/2023 CBC/C OMPLE TE BLD COUNT W/DIF F hematocrit 40.5 % 39.3-5 0.0 Not Available [facility] (Lab) [address] [place], [address], 04/17/2023 12:41:23 04/17/2004/17/2023 CBC/C OMPLE TE BLD COUNT W/DIF F mean red cell volume 90.4 fL 80.0-9 7.0 Not Available [facility] (Lab) [address] [place], [address], 04/17/2023 12:41:23 04/17/2004/17/2023 CBC/C OMPLE TE BLD COUNT W/DIF F mean red cell hemoglobin 29.5 pg 27.0-3 3.0 Not Available [facility] (Lab) [address] [place], [address], 04/17/2023 12:41:23 04/17/2004/17/2023 CBC/C OMPLE TE BLD COUNT W/DIF F mean RBC HGB concentratio n 32.6 g/dL 31.0-3 6.0 Not Available [facility] (Lab) [address] [place], [address], 04/17/2023 12:41:23 04/17/2004/17/2023 CBC/C OMPLE TE BLD COUNT W/DIF F red cell distribution width 13.1 % 11.8-1 5.5 Not Available [facility] (Lab) [address] [place], [address], 04/17/2023 12:41:23 04/17/2004/17/2023 CBC/C OMPLE TE BLD COUNT W/DIF F platelets 199 x10'3 /uL 150-40 0 Not Available [facility] (Lab) [address] [place], [address], 04/17/2023 12:41:23 04/17/2004/17/2023 CBC/C OMPLE TE BLD COUNT W/DIF F mean platelet volume 9.8 fL 9.0-12 .4 Not Available [facility] (Lab) [address] [place], [address], 04/17/2023 12:41:23 04/17/2004/17/2023 CBC/C OMPLE TE BLD COUNT W/DIF F neutrophils 50.6 % 39.0-7 2.0 Not Available [facility] (Lab) [address] [place], [address], 04/17/2023 12:41:23 04/17/2004/17/2023 CBC/C OMPLE TE BLD COUNT W/DIF F lymphocytes 32.9 % 16.0-4 7.0 Not Available [facility] (Lab) [address] [place], [address], 04/17/2023 12:41:23 04/17/2004/17/2023 CBC/C OMPLE TE BLD COUNT W/DIF F monocytes 10.8 % 5.0-12 .0 Not Available [facility] (Lab) [address] [place], [address], 04/17/2023 12:41:23 04/17/2004/17/2023 CBC/C OMPLE TE BLD COUNT W/DIF F eosinophils 4.5 % 1.0-7. 0 Not Available [facility] (Lab) [address] [place], [address], 04/17/2023 12:41:23 04/17/2004/17/2023 CBC/C OMPLE TE BLD COUNT W/DIF F basophils 1.0 % 0.0-2. 0 Not Available [facility] (Lab) [address] [place], [address], 04/17/2023 12:41:23 04/17/2004/17/2023 CBC/C OMPLE TE BLD COUNT W/DIF F immature granulocytes 0.2 % 0.00-0 .50 Not Available [facility] (Lab) [address] [place], [address], 04/17/2023 12:41:23 04/17/2004/17/2023 CBC/C OMPLE TE BLD COUNT W/DIF F neutrophils, absolute count 2.50 x10'3 /uL 1.5-8. 0 Not Available [facility] (Lab) [address] [place], [address], 04/17/2023 12:41:23 04/17/2004/17/2023 CBC/C OMPLE TE BLD COUNT W/DIF F lymphocytes, absolute count 1.62 x10'3 /uL 1.07-3 .43 Not Available [facility] (Lab) [address] [place], [address], 04/17/2023 12:41:23 04/17/2004/17/2023 CBC/C OMPLE TE BLD COUNT W/DIF F monocytes, absolute count 0.53 x10'3 /uL 0.29-0 .99 Not Available [facility] (Lab) [address] [place], [address], 04/17/2023 12:41:23 04/17/2004/17/2023 CBC/C OMPLE TE BLD COUNT W/DIF F eosinophils, absolute count 0.22 x10'3 /uL 0.02-0 .53 Not Available [facility] (Lab) [address] [place], [address], 04/17/2023 12:41:23 04/17/2004/17/2023 CBC/C OMPLE TE BLD COUNT W/DIF F basophils, absolute count 0.05 x10'3 /uL 0.01-0 .08 Not Available [facility] (Lab) [address] [place], [address], 04/17/2023 12:41:23 04/17/2004/17/2023 CBC/C OMPLE TE BLD COUNT W/DIF F immature granulocytes ,absolute 0.01 x10'3 /uL 0.00-0 .05 Not Available [facility] (Lab) [address] [place], [address], 04/17/2023 12:41:23 04/17/2004/17/2023 CBC/C OMPLE TE BLD COUNT W/DIF F nucleated red blood cells 0.0 % -0 Not Available [facility] (Lab) [address] [place], [address], 04/17/2023 12:41:23 04/17/2004/17/2023 CBC/C OMPLE TE BLD COUNT W/DIF F NRBC# 0.00 x10'3 /uL Not Available [facility] (Lab) [address] [place], [address], 04/17/2023 12:41:23 04/17/2004/17/2023 LIPID PANEL cholesterol 131 mg/dL 140-19 9 low NIH LINUS NSUS RECOM MENDA TION FOR KARINA STERO L: ADULT CHILD LOW RISK: <200 <170 BORDE RLINE : <200- 239 ----- HIGH RISK: >240 >200 Not Available [facility] (Lab) [address] [place], [address], 04/17/2023 12:47:44 04/17/2004/17/2023 LIPID PANEL triglyceride s 110 mg/dL 0-150 NIH LINUS NSUS REPOR T RECOM MENDA TION FOR TRIGL YCERI MARISABEL: ADULT CHILD LOW RISK: <150 ----- BODER LINE: 150-1 99 ----- HIGH RISK: >200 ----- Not Available [facility] (Lab) [address] [place], [address], 04/17/2023 12:47:44 04/17/2004/17/2023 LIPID PANEL HDL cholesterol 55 mg/dL 40- Not Available [facility] (Lab) [address] [place], [address], 04/17/2023 12:47:44 04/17/2004/17/2023 LIPID PANEL LDL cholesterol, [...] WILL NOT BE REPOR ZARA. Not Available [facility] (Lab) [address] [place], [address], 04/17/2023 12:47:44 04/17/2004/17/2023 COMPR EHENS KESHA METAB OLIC PANEL sodium 138 mmol/ L 137-14 5 Not Available [facility] (Lab) [address] [place], [address], 04/17/2023 12:47:51 04/17/2004/17/2023 COMPR EHENS KESHA METAB OLIC PANEL potassium 4.5 mmol/ L 3.5-5. 1 Not Available [facility] (Lab) [address] [place], [address], 04/17/2023 12:47:51 04/17/20 23 04/17/2023 COMPR EHENS KESHA METAB OLIC PANEL chloride 102 mmol/ L 98-107 Not Available [facility] (Lab) [address] [place], [address], 04/17/2023 12:47:51 04/17/20 23 04/17/2023 COMPR EHENS KESHA METAB OLIC PANEL carbon dioxide 27 mmol/ L 22-30 Not Available [facility] (Lab) [address] [place], [address], 04/17/2023 12:47:51 04/17/20 23 04/17/2023 COMPR EHENS KESHA METAB OLIC PANEL anion gap 13.5 mmol/ L 14-22 low Not Available [facility] (Lab) [address] [place], [address], 04/17/2023 12:47:51 04/17/20 23 04/17/2023 COMPR EHENS KESHA METAB OLIC PANEL glucose 152 mg/dL 70-99 high Not Available [facility] (Lab) [address] [place], [address], 04/17/2023 12:47:51 04/17/20 23 04/17/2023 COMPR EHENS KESHA METAB OLIC PANEL BUN 17 mg/dL 8-19 Not Available [facility] (Lab) [address] [place], [address], 04/17/2023 12:47:51 04/17/20 23 04/17/2023 COMPR EHENS KESHA METAB OLIC PANEL creatinine 1.13 mg/dL 0.66-1 .25 Not Available [facility] (Lab) [address] [place], [address], 04/17/2023 12:47:51 04/17/20 23 04/17/2023 COMPR EHENS KESHA METAB OLIC PANEL GFR >60 Refer ence Range : Davin ge GFR Healt hy Adult : >60 [...] calcu lator is avail able on the [facility] websi te: [email or web address] :[email or web address] rg/pr [email or web address] ional [email or web address] qi/gf r_cal culat or Not Available [facility] (Lab) [address] [place], [address], 04/17/2023 12:47:51 04/17/2004/17/2023 COMPR EHENS KESHA METAB OLIC PANEL alkaline phosphatase 51 U/L 38-126 Not Available [facility] (Lab) [address] [place], [address], 04/17/2023 12:47:51 04/17/2004/17/2023 COMPR EHENS KESHA METAB OLIC PANEL alanine aminotransfe rase 23 U/L 0-50 Not Available [facility] (Lab) [address] [place], [address], 04/17/2023 12:47:51 04/17/2004/17/2023 COMPR EHENS KESHA METAB OLIC PANEL aspartate aminotransfe rase 29 U/L 15-46 Not Available [facility] (Lab) [address] [place], [address], 04/17/2023 12:47:51 04/17/20 23 04/17/2023 COMPR EHENS KESHA METAB OLIC PANEL bilirubin, total 0.50 mg/dL 0.20-1 .30 Not Available [facility] (Lab) [address] [place], [address], 04/17/2023 12:47:51 04/17/2004/17/2023 COMPR EHENS KESHA METAB OLIC PANEL calcium 9.7 mg/dL 8.4-10 .2 Not Available [facility] (Lab) [address] [place], [address], 04/17/2023 12:47:51 04/17/20 23 04/17/2023 COMPR EHENS KESHA METAB OLIC PANEL total protein 7.7 g/dL 6.3-8. 2 Not Available [facility] (Lab) [address] [place], [address], 04/17/2023 12:47:51 04/17/2004/17/2023 COMPR EHENS KESHA METAB OLIC PANEL albumin 4.4 g/dL 3.0-4. 4 Not Available [facility] (Lab) [address] [place], [address], 04/17/2023 12:47:51 04/17/20 23 04/17/2023 COMPR EHENS KESHA METAB OLIC PANEL globulin 3.3 g/dL 2.6-4. 2 Not Available [facility] (Lab) [address] [place], [address], 04/17/2023 12:47:51 04/17/20 23 04/17/2023 COMPR EHENS KESHA METAB OLIC PANEL A/G ratio 1.3 ratio 1.0-2. 0 Not Available [facility] (Lab) [address] [place], [address], 04/17/2023 12:47:51 04/17/2004/17/2023 PSA SCREE N PSA medicare screen 0.82 NG/mL 0.00-4 .00 Not Available [facility] (Lab) [address] [place], [address], 04/17/2023 13:15:15 04/17/2004/17/2023 HEMOG LOBIN A1C HA1C 6.6 % 4.0-6. 0 high Diabe vandana Scree felix Crite daily: <5.7% Consi stent with absen ce of diabe vandana 5.7-6 .4% Consi stent with incre ased risk for diabe vandana (pred iabet es) >OR=6 .5% Consi stent with diabe vandana REFER ENCE: Diabe vandana Care 2016, 39(Vargas ppl.1 ):s13 -s22 Not Available [facility] (Lab) [address] [place], [address], 04/17/2023 19:53:57 Result Notes None recorded. Problems Name Problem SNOMED Code Status Onset Date Resolution Date Notes Provider Name and Address Organization Details Recorded Time Clear cell carcinoma of kidney 333904430 Active Not Available [facility] 3 09:13:09 Malaise and fatigue 350800499 Active Not Available [facility] 3 09:13:09 Blood in urine 25940296 Active Not Available [facility] 3 09:13:09 Neuropathy 431242776 Active Not Available [facility] 3 09:13:09 Type 2 diabetes mellitus 70000073 Active Not Available [facility] 3 09:13:09 Urinary tract infectious disease 06520212 Active Not Available [facility] 3 09:13:09 Rheumatoid arthritis 49330990 Active Not Available [facility] 3 09:13:09 Gout 93166953 Active Not Available [facility] 3 09:13:09 Serum vitamin B12 below reference range 650842704 Active 2016 Not Available [facility] 3 09:13:09 Lightheadedne ss 491153079 Active 2016 Not Available [facility] 3 09:13:09 Essential hypertension 06140832 Active 2017 Not Available [facility] 3 09:13:09 Dyslipidemia 853608173 Active 2020 Not Available [facility] 3 09:13:09 Pernicious anemia 17972287 Active 2021 Not Available [facility] 3 09:13:09 Cobalamin deficiency 321310853 Active 2021 Not Available [facility] 3 09:13:09 Type 2 diabetes mellitus without complication 203208297 Active 2022 Not Available [facility] 3 09:13:09 Problem Notes None recorded. Procedures Surgical History Date Name Laterality Status Provider Name and Address Organization Details Recorded Time other completed Not Available [facility] 09/2022 02:46:36 other completed Not Available [facility] 09/2022 02:46:36 Kidney/Bladde r Surgery completed Not Available [facility] 11/23/2022 02:46:36 Imaging Results None recorded. Procedure Notes None recorded. Medical Equipment None Reported. Allergies Allergen ID Allergen Name Allergen Category Reaction Reaction Severity Criticality Documentation Date Start Date Code Code System Note Provider Name and Address Organization Details Recorded Time 5337 aspirin medicatio n hives Not available Not available 11/23/2022 1191 RxNorm Not Available [facility] 3 03:10:17 Medications Name Sig Start Date [...] Available Not Available Not Available Fluzone High-Dose 6730-5357 (PF) 180 mcg/0.5 mL intramuscul ar syringe [...] Updated DateTime 3 182.88 cm 26 kg/m2 39726.7 4 g 97.9 [degF] 62 /min 138/72 mm[Hg] FRANSICO Roca [place] [email or web address] [facility] 3 10:11:26 Date Recorded Body height Provider Name an d Address Organization Details Last Updated DateTime 01/26/2023 182.88 cm Francine Bermudez RN [facility] [email or web address] [facility] 01/26/2023 09:38:53 Date Recorded Body height Body mass index (BMI) Body weight Body temperature Heart rate Oxygen saturation Systolic And Diastolic Provider Name and Address Organization Details Last Updated DateTime 182.88 cm 25.5 kg/m2 49748.3 7 g 97.5 [degF] 66 /min 98 % 132/80 mm[Hg] Rosalia Rodriguez MA [facility] [email or web address] [facility] 3 10:05:01 Date Recorded Body height Provider Name an d Address Organization Details Last Updated DateTime 07/27/2023 182.88 cm FRANSICO Roca [facility] [email or web address] [facility] 07/27/2023 11:15:50 Social History Question Answer Notes LastModified by Organization Details LastModified Time Tobacco Smoking Status Former Smoker quit 2004 Not Available [facility] 11/23/2022 02:31:15 Do You Have An Advance Directive? Yes MIGRATION.0301 [id number] Information not available 11/23/2022 Are You Blind Or Do You Have Difficulty Seeing? No MIGRATION.030 538690 Information not available 11/23/2022 What Is Your Level Of Caffeine Consumption? Occasional MIGRATION.0301 525162 Information not available 11/23/2022 How Much Tobacco Do You Chew? None MIGRATION.0301 885719 Information not available 11/23/2022 In The 14 Days Before Symptom Onset, Have You Had Close Contact With A Laboratory-confi rmed COVID-19 While That Case Was Ill? No MIGRATION.0301 [id number] Information not available 11/23/2022 In The 14 Days Before Symptom Onset, Have You Had Close Contact With A Person Who Is Under Investigation For COVID-19 While That Person Was Ill? No MIGRATION.0301 [id number] Information not available 11/23/2022 Are You Deaf Or Do You Have Serious Difficulty Hearing? No MIGRATION.0301 832805 Information not available 11/23/2022 What Type Of Diet Are You Following? DIABETIC MIGRATION.0301 860279 Information not available 11/23/2022 Which Illicit Or Recreational Drugs Have You Used? None MIGRATION.0301 125866 Information not available 11/23/2022 What Is The Highest Grade Or Level Of School You Have Completed Or The Highest Degree You Have Received? [id number] MIGRATION.0301 102321 Information not available 11/23/2022 Have There Been Any Changes To Your Family Or Social Situation? No MIGRATION.0301 469815 Information not available 11/23/2022 What Is The Fluoride Status Of Your Home? Unknown MIGRATION.0301 561352 Information not available 11/23/2022 When Did You Quit Smoking? 18+yearssincelastci dante MIGRATION.030 051541 Information not available 11/23/2022 Are There Any Guns Present In Your Home? Yes MIGRATION.0301 133972 Information not available 11/23/2022 Do You Use Insect Repellent Routinely? No MIGRATION.0301 655153 Information not available 11/23/2022 Where Do You Live? SingleLevelHouse MIGRATION.0301 932155 Information not available 11/23/2022 Do You Have A Medical Power Of End Lathe Operator? Yes MIGRATION.0301 143702 Information not available 11/23/2022 What Was The Date Of Your Most Recent Tobacco Screening? 07/27/2023 [email or web address] Information not available 07/27/2023 Do You Have Any Pets? No MIGRATION.0301 291645 Information not available 11/23/2022 What Is Your Relationship Status? MIGRATION.0301 638096 Information not available 11/23/2022 Do You Use Your Seat Belt Or Car Seat Routinely? Yes MIGRATION.0301 655469 Information not available 11/23/2022 Do You Have Smoke And Carbon Monoxide Detectors In Your Home? Yes MIGRATION.0301 127042 Information not available 11/23/2022 At What Age Did You Start Smoking Tobacco? 15 MIGRATION.0301 [id number] Information not available 11/23/2022 Are You Passively Exposed To Smoke? No MIGRATION.0301 080338 Information not available 11/23/2022 Are There Any Smokers In Your House? No MIGRATION.0301 012846 Information not available 11/23/2022 How Much Tobacco Do You Smoke? No MIGRATION.0301 645126 Information not available 11/23/2022 What Types Of Sporting Activities Do You Participate In? None MIGRATION.0301 932091 Information not available 11/23/2022 Do You Use Sunscreen Routinely? No MIGRATION.0301 490002 Information not available 11/23/2022 Has Tobacco Cessation Counseling Been Provided? No MIGRATION.0301 053395 Information not available 11/23/2022 Have You Recently Traveled Abroad? No MIGRATION.0301 831573 Information not available 11/23/2022 Do You Have Difficulty Walking Or Climbing Stairs? No MIGRATION.0301 944334 Information not available 11/23/2022 Do You Have Any Dietary Restrictions? No MIGRATION.0301 786057 Information not available 11/23/2022 Sex: Male Functional Status Question Answer Note LastModified by [email or web address] Details LastModified Time Do you use any illicit or recreational drugs? No MIGRATION.301763 8527 Information not available 11/23/2022 Do you or have you ever used any other forms of tobacco or nicotine? No MIGRATION.012031 7979 Information not available 11/23/2022 What is your level of alcohol consumption? None MIGRATION.288736 8519 Information not available 11/23/2022 Do you or have you ever used smokeless tobacco? Never used smokeless tobacco MIGRATION.273479 8116 Information not available 11/23/2022 Do you have transportation difficulties? No MIGRATION.386078 6193 Information not available 11/23/2022 Are you able to walk independently without assistance or assistive devices? YESWOREST MIGRATION.326431 2117 Information not available 11/23/2022 Do you have difficulty doing errands alone? No MIGRATION.986708 2752 Information not available 11/23/2022 Are you able to care for yourself independently? Yes MIGRATION.518961 7109 Information not available 11/23/2022 What is your occupation? retired MIGRATION.428729 3092 Information not available 11/23/2022 Do you have difficulty dressing, bathing, grooming, or toileting? No MIGRATION.415797 6892 Information not available 11/23/2022 Do you or have you ever used e-cigarettes or vape? Never used electronic cigarettes MIGRATION.947948 1686 Information not available 11/23/2022 What is your exercise level? Heavy MIGRATION.468822 6229 Information not available 11/23/2022 Mental Status Question Answer Note LastModified by [email or web address] Details LastModified Time Do you feel stressed (tense, restless, nervous, or anxious, or unable to sleep at night)? [id number] MIGRATION.[id number] 26 Information not available 11/23/2022 Do you have difficulty concentrating, remembering or making decisions? No MIGRATION.49567420 26 Information not available 11/23/2022 Family History Relationship Description Onset Age of this Age Resolved Age Notes LastModified by Organization Details LastModified Time Paternal Grandmother Diabetes mellitus MIGRATION.501 [id number] Not available 11/23/2022 02:46:38 Father Essential hypertension MIGRATION.829 [id number] Not available 11/23/2022 02:46:38 Mother Malignant neoplasm of colon MIGRATION.447 [id number] Not available 11/23/2022 02:46:38 Medical History Condition [...] HAVE YOU BEEN HOSPITALIZED OR SEEN IN [facility] IN THE PAST YEAR ? N ATHEROSCLEROSIS [...] mcg/0.3 mL dose 1 completed Not Available [facility] 04/18/2023 09:13:09 zoster recombinant 1 completed Not Available [facility] 04/18/2023 09:13:09 zoster recombinant 1 completed Not Available [facility] 04/18/2023 09:13:09 COVID-19, mRNA, LNP-S, PF, 30 mcg/0.3 mL dose 1 completed Not Available [facility] 04/18/2023 09:13:09 Influenza, split virus, quadrivalent, preservative 0 completed Not Available [facility] 04/18/2023 09:13:09 influenza, unspecified formulation 8 completed Not Available [facility] 04/18/2023 09:13:09 Influenza, high-dose, trivalent, PF 7 completed Not Available [facility] 04/18/2023 09:13:09 pneumococcal polysaccharide PPV23 7 completed Not Available [facility] 04/18/2023 09:13:09 COVID-19, mRNA, LNP-S, PF, 30 mcg/0.3 mL dose 1 completed Not Available [facility] 04/18/2023 09:13:09 Influenza, high-dose, quadrivalent, PF 2 completed Not Available [facility] 04/18/2023 09:13:09 Influenza, high-dose, quadrivalent, PF 1 completed Not Available [facility] 04/18/2023 09:13:09 Pneumococcal conjugate PCV 13 7 completed Not Available [facility] 04/18/2023 09:13:09 Influenza, high-dose, quadrivalent, PF 3 completed FRANSICO Alvarez, [place] - [facility] [employer] [facility] 07/18/2023 12:20:11 Past Encounters Encounter ID Performer Location Encounter Start Date Encounter Closed Date Diagnosis/Indication Diagnosis SNOMED-CT Code Diagnosis ICD10 Code Diagnosis IMO Codes Diagnosis Note [id number] Xander Pace MD [facility] [place] [address] [place] [address] y , [place] [address] 12/08/2020 00:00:00 12/08/2020 22:10:17 [id number] Xander Pace MD [facility] [place] [address] [place] [address] [place] [address] 06/15/2021 00:00:00 06/15/2021 22:55:23 [id number] Xander Pace MD [facility] Internal [facility] [place] [address] [place] [address] y , [place] [address] 12/14/2021 00:00:00 01/08/2022 11:12:28 [id number] Xander Pace MD [facility] Internal [facility] [place] [address] [place] [address] y , [place] [address] 06/21/2022 00:00:00 07/24/2022 15:09:30 [id number] Xander Pace MD [facility] Internal [facility] [place] [address] [place] [address] y , [place] [address] 12/22/2022 09:56:16 12/22/2022 10:48:44 Essential hypertension 05830166 I10 E11.9 Type 2 richy betes mellitus without complication [id number] E11.9 Cobalamin deficiency 190 651594 E53.8 Screening for malignant neoplasm of prostate [id number] Z12.5 Dyslipidemia 579637314 E 78.5 Serum rinku min B12 below reference range 815994956 R79.89 Clear cell carcinoma of kidney 079059511 C64.9 Gout 45926417 M10.9 Neuropathy 588382168 G62 .9 Rheumatoid arthritis 698 25147 M06.9 [id number] Xander Pace MD [facility] Internal Med [place] [address] [place] [address] y , [place] [address] 01/26/2023 09:30:55 01/26/2023 09:43:39 Cobalamin deficiency 963326974 E53.8 Serum rinku min B12 below reference range 347062525 R79.89 [id number] Xander Pace MD [facility] Internal [place] [address] [place] [address] [place] [address] 03/07/2023 09:30:12 03/07/2023 09:38:42 Cobalamin deficiency 890031522 E53.8 [id number] Xander Pace MD [facility] Internal [place] [address] [place] [address] [place] [address] 05/02/2023 09:49:22 05/02/2023 10:50:36 Dyslipidemia 889044744 E78.5 Essential hypertension 82207022 I10 E11.9 Serum rinku min B12 below reference range 463901266 R79.89 Clear cell carcinoma of kidney 608341894 C64.9 Gout 23722941 M10.9 Rheumatoid arthritis 698 48811 M06.9 Type 2 richy betes mellitus without complication 759998929 E11.9 [id number] Xander Pace MD [facility] Internal Med [facility] [address] [place] [address] [place] [address] 07/27/2023 10:55:24 09/22/2023 12:56:02 Health Concerns Section Related Observation LastModified by Organization Detai ls LastModified Time None Recorded Concern Status LastModified by Organization Details LastModified Time None Recorded Advance Directives Directive Y: Payers Insurance Date Sequence Insurance Name Policy Number Policy [place] Covered Member ID [place] Member ID Guarantor Name 02/01/2024 1 [place] Calin Lerma [id number] Calin Lerma 02/01/2024 2 [facility] [employer] [place]AND[place] (MEDICARE SUPPLEMENT) Calin Lerma [id number] Calin Lerma Notes Date Note Type Note [...] symptoms Xander Pace MD [address] [facility], [place], [address], [employer] [facility] 12/25/2022 11:40:32 05/02/20 23 text/htm l [...] symptoms Xander Pace MD [address], [place], [address], [employer] [facility] 05/14/2023 21:59:24
--- OUTSIDE RECORDS SUMMARY | 2025-09-12 15:03 | XMS_ITS | Clinical Summary ---
Author Organization [facility] Address [facility] [place] [address] Care Team Providers Care Senior Executive Assistant Name Role Phone Unavailable Primary Care Provider [...]
--- OUTSIDE RECORDS SUMMARY | 2025-09-12 15:03 | XMS_ITS | Clinical Summary ---
Author Organization [facility] Address [address] [place] [address] Phone Care Team Providers Care Plumber'S Helper Name Role Phone Silvino Pace MD Primary Care Provider [phone] Allergies Active Allergy Reactions Criticality Noted Date [...] AM MDT Legal Sex Male 7:53 PM [facility] Gender Identity Male 04/28/2021 7:15 [...] Advance Directives For more information, please contact: [phone] (7AM - 4PM [facility]/[place], 7 days a week) Documents on File Type Date Recorded Patient Parcel Post Officer Expl anation Power of Electronic Equipment Repairer 05/10/2021 2:11 PM Calin [email or web address] Care Teams Plumber'S Helper Relationship Specialty Start Date End Date Silvino Pace MD [address] [address] PCP - General Family Medicine 12/30/18
[2025-09-12 15:25] LABS: Hematocrit 41.6 % (42.0-52.0); Hemoglobin 13.8 g/dL (14.0-18.0); Immature Granulocyte Percent A 0.2 % (0-0.5); Lymphocytes Absolute Auto 1.39 K/mm3 (0.9-3.2); Mean Corpuscular HGB Conc 33.2 g/dl (32-36); Mean Corpuscular Hemoglobin 30.3 pg (26-34); Mean Corpuscular Volume 91.2 fl (80-100); Nucleated Red Blood Cells Absolute Auto 0.000 K/mm3 (0.0-0.012); Nucleated Red Blood Cells Perc 0.0 % (0.0-0.2); Platelet Count Result 178 k/mm3 (150-375); Red Blood Count 4.56 M/mm3 (4.6-6.20); White Blood Count 4.4 K/mm3 (4.5-10.0)
[2025-09-12 15:35] LABS: Alanine Aminotransferase 41 U/L (6-50); Albumin Level 4.5 g/dL (3.5-5.1); Alkaline Phosphatase 54 U/L (38-126); Anion Gap 9 mmol/L (4-12); Aspartate Amino Transferase 37 U/L (17-59); Bilirubin,Total 0.4 mg/dL (0.2-1.3); Blood Urea Nitrogen 21 mg/dL (9-20); Calcium 9.8 mg/dL (8.4-10.2); Carbon Dioxide 26 mmol/L (22-30); Chloride 104 mmol/L (98-107); Estimated CRCL calculation 56 ml/min; Estimated Glomerular Filt Rate 58; Glucose 265 mg/dL (65-110); Lipase 324 U/L (23-300); Potassium 3.9 mmol/L (3.4-5.0); Sodium 139 mmol/L (137-145); Total Protein 8.2 g/dL (6.3-8.2)
[2025-09-12 15:40] LABS: INR 1.0; Partial Thromboplastin Time 27.0 Seconds (22.3-36.8); Prothrombin Time 13.8 Seconds (11.1-14.7)
[2025-09-12 15:45] LABS: Troponin I < 0.012 ng/mL (0.000-0.034)
--- OUTSIDE RECORDS SUMMARY | 2025-09-12 16:31 | XMS_ITS | Clinical Summary ---
Author Organization [facility] Address [address] [place] [address] Phone Care Team Providers Care Cradle Slide Maker Name Role Phone Silvino Pace MD Primary Care Provider [phone] Allergies Active Allergy Reactions Criticality Noted Date [...] AM MDT Legal Sex Male 7:53 PM [facility] Gender Identity Male 04/28/2021 7:15 AM MDT [...] Advance Directives For more information, please contact: [phone] (7AM - 4PM [facility]/[place], 7 days a week) Documents on File Type Date Recorded Patient Etl Developer Expl anation Power of Hedis Review Nurse 05/10/2021 2:11 PM Calin [email or web address] Care Teams Cradle Slide Maker Relationship Specialty Start Date End Date Silvino Pace MD [address] [address] PCP - General Family Medicine 12/30/18
--- OUTSIDE RECORDS SUMMARY | 2025-09-12 16:31 | XMS_ITS | Clinical Summary ---
Author Organization [facility] Address [facility] [place] [address] Care Team Providers Care Family Law Legal Assistant Name Role Phone Unavailable Primary Care [...]
--- OUTSIDE RECORDS SUMMARY | 2025-09-12 16:31 | XMS_ITS | Clinical Summary ---
Author Organization [facility] Address [address] [place] [address] Phone Care Team Providers Care Volcanologist Name Role Phone Jenna Alfaro MD Primary Care Provider [phone] Allergies Active Allergy Reactions Criticality Noted Date [...] Description 05/01/2026 8:30 AM CDT Office Visit [facility] - [place] [place] [address] Aureliano Parks MD [address] [facility] [address] [place] [address] Health Maintenance Due Date Last [...] Insurance MEDICARE PART A AND B CIGNA [facility] SUPP Care Teams Volcanologist Relationship Specialty Start Date End Date Jenna Alfaro MD [facility] [address] [phone] PCP - General Family Practice 04/25/24
[2025-09-12] MEDS: LIDOCAINE 2% VISC SOLN 15 ML UDC PO (16:45)
[2025-09-12] MEDS: ACETAMINOPHEN 325 MG TABLET 650 MG PO (16:45)
--- NOTE | 2025-09-12 18:34 | ED_ITS ---
HPI - General Adult General Chief complaint: Chest Pain Stated complaint: chest pain Time Seen by Provider: 09/12/25 16:12 History of Present Illness HPI narrative: Patient is a 75-year-old male who presents ER with some left-sided chest pain. Began yesterday evening on and off and has been continuous since waking up early this morning. No exertional component. It is not associated with eating or drinking. Denies fevers or chills or sweats. Recently admitted to the hospital after having a CVA and also was subsequently diagnosed with myasthenia gravis. He is taking his pyridostigmine. No history of MO. no burning in the throat. Related Data Home Medications ?Medication ?Instructions ?Recorded ?Confirmed ?Last Taken ?Type lactobacillus combination no.4 3 3,000 mmu cells PO DA BRYSON 05/04/22 09/08/25 07/26/25 History billion cell capsule (Probiotic) cholecalciferol (vitamin D3) 125 125 mcg PO DAILY 06/1809/08/25 07/26/25 History mcg (5,000 unit) capsule vitamin B complex 1 cap PO DAILY 10/03/2308/2507/26/25 History mecobalamin (vitamin B12) 10,000 1,000 mcg IM MONTHLY 09/27/24 09/08/25 07/22/25 History mcg solution for injection terbinafine HCl 250 mg tablet 250 mg PO .COMPLEX 10/3109/08/25 07/25/25 History cephalexin 250 mg capsule 250 mg PO DAILY 11/07/2407/26/25 History Allergies Allergy/AdvReac Type Severity Reaction Status Date / Time aspirin Allergy Mild HIVES Verified 09/12/25 16:02 eggplant Allergy Hives Verified 09/12/25 16:02 semaglutide (From Rybelsus) AdvReac Severe Nausea;diar Verified 09/12/25 16:02 moses ARB-Angiotensin Receptor AdvReac Intermediate nephrectomy, Verified 09/12/25 16:02 Antagonist ckd CAYDEN Inhibitors AdvReac nephrectomy, Verified 09/12/25 16:02 ckd PMFSH Past Medical History Medical History (Reviewed 09/03/25 @ 08:44 by Valerie Lin [facility]) Loose stools Early satiety Gas bloat syndrome Abdominal pain Family history of colon cancer in mother Gout Rheumatoid arthritis History of renal cell carcinoma History of hyperlipidemia History of diabetes mellitus History of hypertension Surgical History Surgical History History of right nephrectomy Social History Social History Social History: caffeine use, 2 cups of coffee per day Smoking packs per day: 1 Smoking cigarettes per day: 20.0 Years smoked: 30 Smoking pack-years: 30.00 Smoking status: Former smoker Alcohol intake: never Substance use: never Substance use type: does not use Other substance usage details: 2.5 mg gummy to sleep Lack of Transportation: No Lack of Food: Never True Current Housing: I Have Housing Concerned About Future Housing: No Difficulty Paying Gas/Electric Bills: No Difficulty Paying for Meds: No Currently Unemployed: No Education: High School Diploma/GED Difficulty w/ Childcare or Family Care: No Living arrangements: with family Gender identity (if verbalized by the patient): Male Sexual Orientation (if Verbalized by the Patient): Straight or Heterosexual Spiritual care concerns: No Exam 2 Narrative: GENERAL: Well-appearing, well-nourished, and in no acute distress. HEAD: Normocephalic, atraumatic. ENT: Mucous membranes moist. CHEST: Clear to auscultation. No respiratory distress. HEART: Regular rate and rhythm. Normal peripheral pulses. ABDOMEN: Soft, nontender, nondistended. EXTREMITIES: Normal range of motion. No edema. SKIN: Warm, dry, no rash. NEURO: Alert and oriented x3. PSYCH: Normal mood and affect. Course Course Emergency Course: Patient resting comfortably. Informed of results. Troponin negative. Venous Doppler without DVT. Viscous lidocaine helped his discomfort more than the Tylenol. Discharge with PPI. Vital Signs Vital signs: Vital Signs Temperature 97.2 F L 09/12/25 15:04 Pulse Rate 60 09/12/25 15:04 Respiratory Rate 20 09/12/25 15:04 Blood Pressure 144/69 H 09/12/25 15:04 Pulse Oximetry 99 09/12/25 15:04 Oxygen Delivery Room Air 09/12/25 15:04 Temperature 97.2 F L 09/12/25 15:04 Pulse Rate 63 09/12/25 18:14 Respiratory Rate 17 09/12/25 17:31 Blood Pressure 142/71 H 09/12/25 17:31 Pulse Oximetry 96 09/12/25 17:31 Oxygen Delivery Room Air 09/12/25 16:00 [facility] Differential Diagnosis Differential Diagnosis: ACS, DVT, pneumonia, pneumothorax, acid reflux amongst others Lab Data [facility] Lab Attestation statement: I personally reviewed the patient's lab results. 09/12/25 15:15 09/12/25 15:15 Labs: Lab Results 09/12/25 Range/Units 15:15 WBC 4.4 L (4.5-10.0) K/mm3 RBC 4.56 L (4.6-6.20) M/mm3 Hgb 13.8 L (14.0-18.0) g/dL Hct 41.6 L (42.0-52.0) % MCV 91.2 (80-100) fl MCH 30.3 (26-34) pg MCHC 33.2 (32-36) g/dl RDW 13.2 (11.5-14.5) % Plt Count 178 (150-375) k/mm3 MPV 9.6 (7.4-10.4) fl Immature Gran % (Auto) 0.2 (0-0.5) % Neut % (Auto) 55.6 (45.5-73.1) % Lymph % (Auto) 31.3 (18.3-44.2) % [place] % (Auto) 8.8 H (2.6-8.5) % Eos % (Auto) 3.2 (0-4.4) % Baso % (Auto) 0.9 (0.2-1.2) % Lymph # (Auto) 1.39 (0.9-3.2) K/mm3 [place] # (Auto) 0.4 (0.1-0.6) K/mm3 Eos # (Auto) 0.1 (0-0.3) K/mm3 Baso # (Auto) 0.0 (0.0-0.1) K/mm3 Abs Immat Gran (auto) 0.01 (0.00-0.031) K/mm3 Absolute Neuts (auto) 2.5 (1.3-6.7) K/mm3 Absolute Nucleated RBC 0.000 (0.0-0.012) K/mm3 Nucleated RBC % 0.0 (0.0-0.2) % PT 13.8 (11.1-14.7) Seconds INR 1.0 APTT 27.0 (22.3-36.8) Seconds Sodium 139 (137-145) mmol/L Potassium 3.9 (3.4-5.0) mmol/L Chloride 104 (98-107) mmol/L Carbon Dioxide 26 (22-30) mmol/L Anion Gap 9 (4-12) mmol/L BUN 21 H (9-20) mg/dL Creatinine 1.22 (0.7-1.3) mg/dL Estim Creat Clear Calc 56 ml/min Estimated GFR 58 L (59 - ) Glucose 265 H (65-110) mg/dL Calcium 9.8 (8.4-10.2) mg/dL Total Bilirubin 0.4 (0.2-1.3) mg/dL AST 37 (17-59) U/L ALT 41 (6-50) U/L Alkaline Phosphatase 54 (38-126) U/L Troponin I < 0.012 (0.000-0.034) ng/mL Total Protein 8.2 (6.3-8.2) g/dL Albumin 4.5 (3.5-5.1) g/dL Lipase 324 H (23-300) U/L Imaging Data Radiologist's impression: ITS Impressions Chest X-Ray 09/12/25 15:39 IMPRESSION: 1. No focal acute process. Venous Doppler Study 09/12/25 17:24 Impression: Negative for DVT. ECG Data EKG #1: ECG completion date: 09/12/25 ECG completion time: 15:11 normal rate (1511), sinus rhythm, no ectopy, non-specific ST changes and normal QRS Discharge Plan Discharge Clinical Impression: GERD (gastroesophageal reflux disease) Patient Disposition: Home Condition: Stable Instructions: GERD (Gastroesophageal Reflux Disease) (ED) Additional Instructions: Please return to the emergency department if you develop severe and persistent chest pain, difficulty breathing, dizziness, leg swelling or if you are coughing up blood as these can be signs of a medical emergency. Please call your doctor for a follow up appointment to determine the need for further testing. Patient Language: Tamazight Prescriptions: New pantoprazole 20 mg tablet,delayed release (DR/EC) 20 mg PO HS Qty: 14 0RF No Action mecobalamin (vitamin B12) 10,000 mcg recon soln 1,000 mcg IM MONTHLY cholecalciferol (vitamin D3) 125 mcg (5,000 unit) capsule 125 mcg PO DAILY vitamin B complex Capsule 1 cap PO DAILY Patient Comments: Pt states he takes it 5 days a week: Sun, Tues, Wed, Fri, Sat terbinafine HCl 250 mg tablet 250 mg PO .COMPLEX Patient Comments: Takes once every 4 days Rx Instructions: 250 mg orally once every 4 days; cephalexin 250 mg capsule 250 mg PO DAILY metformin 500 mg tablet extended release 24 hr 500 mg PO BID Qty: 180 3RF aspirin 81 mg Tablet,Delayed Release (Dr/Ec) 81 mg PO QAM 30 Days Qty: 30 0RF Probiotic 3 billion cell Capsule 3,000 mmu cells PO DAILY Rx Instructions: administer with a meal (DME) Accu-Chek SmartView Test Strip Strip See Rx Instructions .Route Qty: 100 3RF Rx Instructions: check blood glucose levels QD ezetimibe [Zetia] 10 mg tablet 10 mg PO DAILY Qty: 90 2RF (DME) lancets [Accu-Chek Fastclix Lancet Drum] Misc See Rx Instructions .Route Qty: 100 2RF Rx Instructions: Use to check BS once daily amlodipine 5 mg tablet 5 mg PO BID Qty: 180 1RF nebivolol 5 mg tablet 5 mg PO DAILY Qty: 90 3RF atorvastatin 40 mg tablet 40 mg PO DAILY Qty: 90 3RF pyridostigmine bromide 60 mg tablet 60 mg PO TID Qty: 270 1RF Follow-up/Referrals: Jenna Alfaro MD [Primary Care Provider, Family Practice] - 1 Week
== END 2025-09-12 18:53 | disposition home or self-care (01) ==
PROVIDERS: Emergency Provider Emergency Medicine; PCP Family Medicine
DX: K21.9 Gastro-esophageal reflux disease without esophagitis (principal); M10.9 Gout, unspecified; M06.9 Rheumatoid arthritis, unspecified; E11.9 Type 2 diabetes mellitus without complications; I10 Essential (primary) hypertension; E78.5 Hyperlipidemia, unspecified; Z85.528 Personal history of other malignant neoplasm of kidney; Z87.891 Personal history of nicotine dependence
CPT/HCPCS: 36415; 71046; 80053; 83690; 84484; 85025; 85610; 85730; 93005; 93971; 99284; A9270